=== PATIENT | female | born 1985 | race Caucasian/White ===

== ENCOUNTER 2021-07-27 08:45 | Day surgery (SDC) | payer OTHER ==
[~2021-07-27] VITALS: Ht 165.1 cm; Wt 53.3 kg
[~2021-07-27 08:45] MED LIST: BUPR300T92 PO; CIPROFLOXACIN 400 MG in IV 1 EA IV ONE; EPIP0.3I2 IM; ESTR1TAB PO; HYDR4TAB PO; LR 1,000 ML IV ONE; OMEP-221 PO; OXYB15TA14 PO; PHEN1TAB73 PO
--- OUTSIDE RECORDS SUMMARY | 2021-07-27 08:50 | CCD ---
Author Author [facility] Organization 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 Role Phone Kurtis Pinedo Unavailable PROBLEMS No Information ALLERGIES Allergen (clinical drug ingredient) Drug/Non Drug Allergy do cumented on EMR Reaction Allergy Type Onset Date Status penicillin V Penicillin SEVERE YEAST INFECTIONS Drug Allergy Active Bee Sting SWELLING Drug Allergy Active ENCOUNTERS from 1983 to 2021-07-13 Encounter Location Date Provider Diagnosis [facility] [id number] [facility] [phone] [place] [address] Jun, Kurtis Pinedo Injury of right ureter, initial encounte r S37.10XA IMMUNIZATIONS No Information SOCIAL HISTORY Tobacco Use: Social History Observation Description Date Details (start date - stop date) Current Smoker Sex Assigned At : Social History Observation Description Sex Assigned At Unknown Language: Question Answer Notes Languages spoken: Syriac Sexual Hx: Question Answer Notes Had sex in the last 12 months (vaginal, oral, or anal)? No Have you ever had an STD? No Alcohol Screening: Question Answer Notes Did you have a drink containing alcohol in the past year? No Points 0 Interpretation Negative Tobacco Use: Question Answer Notes Are you a: current smoker How many cigarettes a day do you smoke? 6-10 Are you interested in quitting? Ready to quit REASON FOR REFERRAL No Information VITAL SIGNS Weight 115.0 lbs Jun, Weight-kg 52.16 kg Jun, Height 56 in Jun, BMI 25.78 kg/m2 Jun, Heart Rate 71 /min Jun, Respiratory Rate 17 /min Jun, Temperature 97.5 degrees Fahrenheit Jun, Oximetry 98 Jun, Blood pressure systolic 138 mm Hg Jun, Blood pressure diastolic 80 mm Hg Jun, MEDICATIONS Medication SIG (Take, Route, Frequency, Duration) Notes Start Da te End Date Status Omeprazole 40 MG 1 capsule 30 minutes before morning meal Orally Once a day for 30 day(s) Active buPROPion HCl ER (XL) 300 MG 1 tablet in the morning O rally Once a day for 30 day(s) Active HYDROmorphone HCl 4 MG 1 tablet as needed Orally every 6 hrs Active Pyridium 100 MG 1 Orally q12hr prn Jun, Active Oxybutynin Chloride ER 15 MG 1 tablet Orally Once a day for 30 d ay(s) Jun, Active Estradiol 1 MG 1 tablet Orally Once a day for 30 day(s) Active PROCEDURES No Information RESULTS No Results REASON FOR VISIT right 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 MEDICAL (GENERAL) HISTORY Type Description Date Medical History DEPRESSION/ANXIETY Medical History ARTHRITIS Medical History Iatrogenic ureteral injury Surgical History STENT PLACEMENT 01/12/21 Surgical History STENT REMOVAL/REPLACEMENT 03/19/21 Surgical History STENT REMOVAL 04/28/21 Surgical History STENT PLACEMENT 05/06/21 Surgical History TOTAL HYSTERECTOMY 01/02/21 Surgical History VERICOSE VEIN 11/06/19 Surgical History COMPARTMENT SYNDROME SX 09/2007 Surgical History TUBAL LIGATION 06/2005 Surgical History 12/12/2004 Surgical History 09/11/2002 Surgical History WISDOM TEETH REMOVAL Surgical History COLONOSCOPY X3 Surgical History ENDOSCOPY Hospitalization History SX RELATED Goals Section No Information Health Concerns No Information MEDICAL EQUIPMENT No Information MENTAL STATUS No Information FUNCTIONAL STATUS No Information ASSESSMENTS Encounter Date Diagnosis Assessment Notes Treatment Notes Treatm ent Clinical Notes Jun, Injury of right ureter, initial encounter (ICD-1 0 - S37.10XA) PLAN OF TREATMENT Medication Medication Name Sig Start Date Stop Date Pyridium 100 MG 1 Orally q12hr prn Jun, Oxybutynin Chloride ER 15 MG 1 tablet Orally Once a day for 30 day(s) Jun, Treatment Notes Test Name Order Date Comprehensive Metabolic Profile (CMP) 2021-07-01 CBC - Complete Blood Count 2021-07-01 URINE CULTURE 2021-07-01 [facility] URINALYSIS 2021-07-01 [facility] Chest, 2 view (PA\Lat) 2021-07-01 Electrocardiogram (EKG) 2021-07-01 Next Appt Details Surgery to evaluate right ureter Reason: Right ureteral injury at time of hysterectomy Follow Up:Surgery to evaluate right ureterRight ureteral injury at time of hysterectomy Insurance Providers Payer Name Payer Address Payer Phone Insured Name Patient Relati onship to Insured Coverage Start Date Coverage End Date [employer] [address] [facility] [phone] PABLO GONZALEZ self
--- OUTSIDE RECORDS SUMMARY | 2021-07-27 08:50 | CCD ---
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 Role Phone Kurtis Pinedo Unavailable PROBLEMS No Information ALLERGIES Allergen (clinical drug ingredient) Drug/Non Drug Allergy do cumented on EMR Reaction Allergy Type Onset Date Status penicillin V Penicillin SEVERE YEAST INFECTIONS Drug Allergy Active Bee Sting SWELLING Drug Allergy Active ENCOUNTERS from 1983 to 2021-07-15 Encounter Location Date Provider Diagnosis [facility] [address] [phone] [place] [address] Jul, Kurtis Pinedo Pre-op testing V72.84 IMMUNIZATIONS No Information SOCIAL HISTORY Tobacco Use: Social History Observation Description Date Details (start date - stop date) Current Smoker Sex Assigned At : Social History Observation Description Sex Assigned At Unknown Language: Question Answer Notes Languages spoken: Bengali Sexual Hx: Question Answer Notes Had sex [...] REASON FOR REFERRAL No Information VITAL SIGNS No information MEDICATIONS Medication SIG (Take, Route, Frequency, Duration) [...] Information RESULTS No Results REASON FOR VISIT lab order MEDICAL (GENERAL) HISTORY Type Description Date Medical [...] Notes Treatment Notes Treatm ent Clinical Notes Jul, Pre-op testing (ICD9-CM - V72.84) PLAN OF TREATMENT Medication Medication Name Sig Start Date Stop Date Pyridium 100 MG 1 Orally q12hr prn Jun, Oxybutynin Chloride ER 15 MG 1 tablet Orally Once a day for 30 day(s) Jun, Future Test Test Name Order Date Coronavirus SARS COVID-19 Amplification (In-House Hosp ital Order) COVID [id number] Next Appt Details Provider Name:Kurtis Pinedo, 2020-12-0 3 02:45:00 PM, [id number], , [place], [address], Insurance Providers Payer Name Payer Address Payer Phone Insured Name Patient Relati onship to Insured Coverage Start Date Coverage End Date [facility] [address] [facility] [phone] PABLO GONZALEZ self
--- OUTSIDE RECORDS SUMMARY | 2021-07-27 08:51 | CCD ---
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 Role Phone Laura Pinedo MD Unavailable Unavailable Xochitl Maldonado MD Unavailable Unavailable Xochitl Solis MD Unavailable Unavailable Xochitl Solis MD Unavailable Unavailable Xochitl Solis MD Unavailable Unavailable Xochitl Solis MD Unavailable Unavailable Xochitl Solis MD Unavailable Unavailable Xochitl Solis MD Unavailable Unavailable Claudia ROGERS MD Unavailable Unavailable Claudia ROGERS MD Unavailable Unavailable Claudia ROGERS MD Unavailable Unavailable Claudia ROGERS MD Unavailable Unavailable Claudia ROGERS MD Unavailable Unavailable Claudia ROGERS MD Unavailable Unavailable Claudia ROGERS MD Unavailable Unavailable Claudia ROGERS MD Unavailable Unavailable Claudia ROGERS MD Unavailable Unavailable Claudia ROGERS MD Unavailable Unavailable Claudia ROGERS MD Unavailable Unavailable Claudia ROGERS MD Unavailable Unavailable Claudia ROGERS MD Unavailable Unavailable Claudia ROGERS MD Unavailable Unavailable Claudia ROGERS MD Unavailable Unavailable Claudia ROGERS MD Unavailable Unavailable Claudia ROGERS MD Unavailable Unavailable Claudia ROGERS MD Unavailable Unavailable Claudia ROGERS MD Unavailable Unavailable Claudia ROGERS MD Unavailable Unavailable Claudia ROGERS MD Unavailable Unavailable Claudia ROGERS MD Unavailable Unavailable DEMI, J ROSI CARDENAS Unavailable Unavailable DEMI, J ROSI CARDENAS Unavailable Unavailable DEMI, J ROSI CARDENAS Unavailable Unavailable DEMI, J ROSI CARDENAS Unavailable Unavailable DEMI, J ROSI CARDENAS Unavailable Unavailable DEMI, J ROSI CARDENAS Unavailable Unavailable DEMI, J ROSI CARDENAS Unavailable Unavailable DEMI, J ROSI CARDENAS Unavailable Unavailable DEMI, J ROIS CARDENAS Unavailable Unavailable DEMI, J ROSI CARDENAS Unavailable Unavailable DEMI, J ROSI CARDENAS Unavailable Unavailable DEMI, J ROSI CARDENAS Unavailable Unavailable DEMI, J ROSI CARDENAS Unavailable Unavailable DEMI, J ROSI CARDENAS Unavailable Unavailable DEMI, J ROSI CARDENAS Unavailable Unavailable DEMI, J ROSI CARDENAS Unavailable Unavailable DEMI, J ROSI CARDENAS Unavailable Unavailable DEMI, J ROSI CARDENAS Unavailable Unavailable DEMI, J ROSI CARDENAS Unavailable Unavailable DEMI, J ROSI CARDENAS Unavailable Unavailable DEMI, J ROSI CARDENAS Unavailable Unavailable DEMI, J ROSI CARDENAS Unavailable Unavailable DEMI, J ROSI CARDENAS Unavailable Unavailable DEMI, J ROSI CARDENAS Unavailable Unavailable DEMI, J ROSI CARDENAS Unavailable Unavailable DEMI, J ROSI CARDENAS Unavailable Unavailable DEMI, J ROSI CARDENAS Unavailable Unavailable DEMI, J ROSI CARDENAS Unavailable Unavailable DEMI, J ROSI CARDENAS Unavailable Unavailable DEMI, J ROSI CARDENAS Unavailable Unavailable DEMI, J ROSI CARDENAS Unavailable Unavailable DEMI, J ROSI CARDENAS Unavailable Unavailable DEMI, J ROSI CARDENAS Unavailable Unavailable DEMI, J ROSI CARDENAS Unavailable Unavailable DEMI, J ROSI CARDENAS Unavailable Unavailable DEMI, J ROSI CARDENAS Unavailable Unavailable DEMI, J ROSI CARDENAS Unavailable Unavailable DEMI, J ROSI CARDENAS Unavailable Unavailable DEMI, J ROSI CARDENAS Unavailable Unavailable DEMI, J ROSI CARDENAS Unavailable Unavailable DEMI, J ROSI CARDENAS Unavailable Unavailable DEMI, J ROSI CARDENAS Unavailable Unavailable DEMI, J ROSI CARDENAS Unavailable Unavailable DEMI, J ROSI CARDENAS Unavailable Unavailable DEMI, J ROSI CARDENAS Unavailable Unavailable DEMI, J ROSI CARDENAS Unavailable Unavailable DEMI, J ROSI CARDENAS Unavailable Unavailable DEMI, J ROSI CARDENAS Unavailable Unavailable DEMI, J ROSI CARDENAS Unavailable Unavailable DEMI, J ROSI CARDENAS Unavailable Unavailable DEMI, J ROSI CARDENAS Unavailable Unavailable DEMI, J ROSI CARDENAS Unavailable Unavailable DEMI, J ROSI CARDENAS Unavailable Unavailable DEMI, J ROSI CARDENAS Unavailable Unavailable DEMI, J ROSI CARDENAS Unavailable Unavailable DEMI, Claudia ARANDA MD Unavailable Unavailable Kelle-Mckinney, K Kristi CARDENAS Unavailable Unavailable Kelle-Mckinney, K Kristi CARDENAS Unavailable Unavailable Kelle-Mckinney, K Kristi CARDENAS Unavailable Unavailable Kelle-Mckinney, K Kristi CARDENAS Unavailable Unavailable NazMckinney, K Kristi CARDENAS Unavailable Unavailable Xochitl Maldonado MD Unavailable Unavailable Xochitl Maldonado MD Unavailable Unavailable Xochitl Maldonado MD Unavailable Unavailable Xochitl Maldonado MD Unavailable Unavailable Xochitl Maldonado MD Unavailable Unavailable Xochitl Maldonado MD Unavailable Unavailable Xochitl Maldonado MD Unavailable Unavailable Xochitl Maldonado MD Unavailable Unavailable Xochitl Maldonado MD Unavailable Unavailable Xochitl Maldonado MD Unavailable Unavailable Xochitl Maldonado MD Unavailable Unavailable Xochitl Maldonado MD Unavailable Unavailable Xochitl Maldonado MD Unavailable Unavailable Xochitl Maldonado MD Unavailable Unavailable Xochitl Maldonado MD Unavailable Unavailable Xochitl Maldonado MD Unavailable Unavailable Xochitl Maldonado MD Unavailable Unavailable Juan Jose, Leo DO Unavailable Unavailable Juan Jose, Leo DO Unavailable Unavailable Juan Jose, Leo DO Unavailable Unavailable [place], Leo DO Unavailable Unavailable IRMA, PRYJSALAS POWELL MD Unavailable Unavailable IRMA, PRYJSALAS POWELL MD Unavailable Unavailable IRMA, PRYJMA SHERRY CARDENAS Unavailable Unavailable IRMA, PRYJMA SHERRY CARDENAS Unavailable Unavailable IRMA, PRYJMA SHERRY MD Unavailable Unavailable IRMA, PRYJMA SHERRY CARDENAS Unavailable Unavailable IRMA, PRYJMA SHERRY MD Unavailable Unavailable IRMA, PRYJMA SHERRY MD Unavailable Unavailable IRMA, PRYJMA SHERRY MD Unavailable Unavailable IRMA, PRYJMA SHERRY MD Unavailable Unavailable IRMA, PRYJMA SHERRY MD Unavailable Unavailable IRMA, PRYJMA SHERRY MD Unavailable Unavailable IRMA, PRYJMA SHERRY MD Unavailable Unavailable IRMA, PRYJMA SHERRY MD Unavailable Unavailable IRMA, PRYJMA SHERRY MD Unavailable Unavailable IRMA, PRYJMA SHERRY MD Unavailable Unavailable IRMA, PRYJMA SHERRY MD Unavailable Unavailable IRMA, PRYJMA SHERRY MD Unavailable Unavailable IRMA, PRYJMA SHERRY MD Unavailable Unavailable IRMA, PRYJMA SHERRY MD Unavailable Unavailable IRMA, PRYJMA SHERRY MD Unavailable Unavailable IRMA, PRYJMA SHERRY MD Unavailable Unavailable IRMA, PRYJMA SHERRY MD Unavailable Unavailable IRMA, PRYJMA SHERRY MD Unavailable Unavailable ALEX SOLIS MD Unavailable Unavailable ALEX SOLIS MD Unavailable Unavailable ALEX SOLIS MD Unavailable Unavailable ALEX SOLIS MD Unavailable Unavailable ALEX SOLIS MD Unavailable Unavailable ALEX SOLIS MD Unavailable Unavailable Robetro Carlos HOOVER MD Unavailable Unavailable Roberto Carols HOOVER MD Unavailable Unavailable Roberto Carlos HOOVER MD Unavailable Unavailable Roberto Carlos HOOVER MD Unavailable Unavailable Roberto Carlos HOOVER MD Unavailable Unavailable KIKO, H HAILEE CARDENAS Unavailable Unavailable Maricruz Barraza MD Unavailable Unavailable Maricruz Barraza MD Unavailable Unavailable Aviva Hernandez MD Unavailable Unavailable Turecki, Kurtis Unavailable Turecki, Kurtis Unavailable Turecki, Kurtis Unavailable Turecki, Kurtis Unavailable Turecki, Kurtis Unavailable Turecki, Kurtis Unavailable Turecki, Kurtis Unavailable Turecki, Kurtis Unavailable Bela Gloria MD Unavailable Unavailable Bela Gloria MD Unavailable Unavailable BROUGHAL, C GERRI PA Unavailable Unavailable BROUGHAL, C GERRI PA Unavailable Unavailable BROUGHAL, C GERRI PA Unavailable Unavailable BROUGHAL, C GERRI PA Unavailable Unavailable BROUGHAL, C GERRI PA Unavailable Unavailable BROUGHAL, C GERRI PA Unavailable Unavailable Walker, C Chuyita RPA-C Unavailable Unavailable Walker, C Chuyita RPA-C Unavailable Unavailable Walker, C Chuyita RPA-C Unavailable Unavailable Walker, C Chuyita RPA-C Unavailable Unavailable Walker, C Chuyita RPA-C Unavailable Unavailable Walker, C Chuyita RPA-C Unavailable Unavailable Walker, C Chuyita RPA-C Unavailable Unavailable Walker, C Chuyita RPA-C Unavailable Unavailable Walker, C Chuyita RPA-C Unavailable Unavailable Walker, C Chuyita RPA-C Unavailable Unavailable Walker, C Chuyita RPA-C Unavailable Unavailable Walker, C Chuyita RPA-C Unavailable Unavailable Walker, C Chuyita RPA-C Unavailable Unavailable Walker, C Chuyita RPA-C Unavailable Unavailable Walker, C Chuyita RPA-C Unavailable Unavailable Walker, C Chuyita RPA-C Unavailable Unavailable Walker, C Chuyita RPA-C Unavailable Unavailable Walker, C Chuyita RPA-C Unavailable Unavailable Walker, C Chuyita RPA-C Unavailable Unavailable Walker, C Chuyita RPA-C Unavailable Unavailable Walker, C Chuyita RPA-C Unavailable Unavailable Walker, C Chuyita RPA-C Unavailable Unavailable Walker, C Chuyita RPA-C Unavailable Unavailable Walker, C Chuyita RPA-C Unavailable Unavailable Walker, C Chuyita RPA-C Unavailable Unavailable Walker, C Chuyita RPA-C Unavailable Unavailable Walker, C Chuyita RPA-C Unavailable Unavailable Walker, C Chuyita RPA-C Unavailable Unavailable Miglietta, C Vipul TSE Unavailable Unavailable Migafiaetta, C Vipul PA Unavailable Unavailable Miglietta, C Vipul PA Unavailable Unavailable Re-disclosure Warning The records that you are about to access may contain information from federally-assisted alcohol or drug abuse programs. If such information is present, then the following federally mandated warning applies: This information has been disclosed to you from records protected by federal confidentiality rules (42 CFR part 2). The federal rules prohibit you from making any further disclosure of this information unless further disclosure is expressly permitted by the written consent of the person to whom it pertains or as otherwise permitted by 42 CFR part 2. A general authorization for the release of medical or other information is NOT sufficient for this purpose. The Federal rules restrict any use of the information to criminally investigate or prosecute any alcohol or drug abuse patient.The records that you are about to access may contain highly sensitive health information, the redisclosure of which is protected by Article 27-F of the [facility] Public Health law. If you continue you may have access to information: Regarding HIV / AIDS; Provided by facilities licensed or operated by the [facility] Office of Mental Health; or Provided by the [facility] Office for People With Developmental Disabilities. If such information is present, then the following [facility] mandated warning applies: This information has been disclosed to you from confidential records which are protected by state law. State law prohibits you from making any further disclosure of this information without the specific written consent of the person to whom it pertains, or as otherwise permitted by law. Any unauthorized further disclosure in violation of state law may result in a fine or long-term sentence or both. A general authorization for the release of medical or other information is NOT sufficient authorization for further disc losure. Allergies and Adverse Reactions Type Description Substance Reaction Status Data Source(s ) Drug allergy Drug allergy bee venom protein (honey bee) Unknown React ion [facility] Drug allergy Drug allergy Penicillins Itching [facility] Encounters Encounter Providers Location Date Indications Data Source(s ) Outpatient Attender: GERRI TSE CPSCAORT-LABCOVWAR 1 09/21/2020 10:04:00 AM EST - 07/22/2021 10:05:00 AM EST V72.84 [facility] V72.84 Patient discharged. Outpatient Attender: Kurtis Pinedo MDAttender: Kurtis Escamilla i CPSCAORT-LABPD 07/16/2021 01:17:00 PM EDT - 07/16/2021 01:18:00 PM EDT S37.10XA [facility] S37.10XA Patient discharged. Unknown [id number] [facility], [facility] [id number] 07/14/2021 12:00:00 AM EDT eCW1 (Formerly [facility]) Outpatient [address] [facility] [place] [id number] 07/01/2021 12:00:00 AM EDT eCW1 (Formerly [facility]) Inpatient Attender: Kristi Hernandez MDAttender: Kristi Hernandez MDAttender: Miko Solis MDAdmitter: Kristi Hernandez MDConsultant: Werner Maldonado MDConsultant: Werner Maldonado MD CPSCAORT-OBSERV 05/06/2021 05:58: 00 PM EDT - 05/07/2021 12:35:00 PM EDT RIGHT URETERAL LIGATION [facility] RIGHT URETERAL LIGATION Patient discharged. Emergency Att[facility]: [facility]is [facility] 12:11:00 PM EDT - 05/05/2021 04:55:00 PM EDT URINARY INCONTINENCE, FEVER [facility] URINARY INCONTINENCE, FEVER Patient discharged. Outpatient Attender: HAILEE HOOVER MD CPSCAORT-LABPD 02/2021 11:22:00 AM EDT - 04/17/2021 11:23:00 AM EDT N39.42, R30.0 [facility] al N39.42, R30.0 Patient discharged. Emergency Attender: Shirley Gloria MDAttender: Gerri shahid MD CPSCAORT-ED 03/23/2021 10:59:00 AM EDT - 03/23/2021 05:26:00 PM EDT POST SURGICAL PAIN [facility] POST SURGICAL PAIN Patient discharged. Outpatient Attender: ROSI ROGERS MD CPSCAORT-LABPNP 02/12 01:02:00 PM EDT - 03/11/2021 01:03:00 PM EDT N23 RENAL COLIC [facility] al N23 RENAL COLIC Patient discharged. Emergency Attender: Vipul Johnson PAAttender: Leo Garcia es DO CPSCAORT-ED 01/31/2021 10:04:00 AM EDT - 01/31/2021 11:03:00 AM EDT REQUESTING NICE PLACED [facility] REQUESTING NICE PLACED Patient discharged. Outpatient Attender: GERRI TSE CPSCAORT-LABCOVWAR 0 12/28/2020 09:02:00 AM EDT - 12/28/2020 09:03:00 AM EDT PREOP [facility] al PREOP Patient discharged. Outpatient Attender: SHERRY SOLIS MD CPSCAORT-SDCLOC 020 08:05:00 AM EST - 08/18/2020 09:14:00 AM EST Hemorrhage of anus and rectum [facility] Hemorrhage of anus and rectum Patient discharged. Outpatient Attender: SHERRY SOLIS MDReferrer: GERRI TSE CPSCAORT-LABCOVLAW 08/13/2020 08:12:00 AM EST - 08/13/2020 08:13:00 AM ES T COVID-19 SCREENING [facility] COVID-19 SCREENING Patient discharged. Outpatient Attender: SHERRY SOLIS MD CPSCAORT-CPSCNGSR 08/12 01:37:00 PM EST - 08/12/2020 01:38:00 PM EST K62.5 [facility] K62.5 Patient discharged. Outpatient Attender: ROSI ROGERS MD CPSALYSHA-IMACN 07/14 06:34:00 AM EST - 08/04/2020 06:35:00 AM EST LUMBAR RADICULOPATHY [facility] LUMBAR RADICULOPATHY Patient discharged. Outpatient [facility] 08/01/2020 10:37:00 AM EST - 08/01/2020 10:38:00 AM EST [facility] pital Patient discharged. Outpatient Attender: ROSI ROGERS MD CPSALYSHA-IMAPD 07/13 08:34:00 AM EST - 07/28/2020 08:35:00 AM EST LOW BACK PAIN [facility] LOW BACK PAIN Patient discharged. Outpatient Attender: ROSI KNOWLES-LABPNP 07/13 03:14:00 PM EST - 07/23/2020 03:15:00 PM EST K62.5; M54.16 [facility] K62.5; M54.16 Patient discharged. Outpatient Attender: SHERRY SOLIS MD CPSBRADLEYORT-SDCIMA 020 10:23:00 AM EST - 11/06/2019 11:55:00 AM EST RFA RIGHT GSV AND AASV [facility] RFA RIGHT GSV AND AASV Patient discharged. Medications Medication Brand Name Start Date Product Form Dose Route Admi nistrative Instructions Pharmacy Instructions Status Indications Reaction Description Data Source(s) 4 mg 07/20/2021 12:00:00 AM EST tablet 24 TAKE ONE TABLET BY MOUTH EVERY 4 HOURS NEEDED MAX=6TABS/DAY TAKE ONE TABLET BY MOUTH EVERY 4 HOURS A S NEEDED MAX=6TABS/DAY SOLD: 07/20/2021 [facility] 4 mg 07/13/2021 12:00:00 AM EDT tablet 24 TAKE ONE TABLET BY MOUTH EVERY 4 HOURS NEEDED MAX=6TABS/DAY TAKE ONE TABLET BY MOUTH EVERY 4 HOURS A S NEEDED MAX=6TABS/DAY SOLD: 07/13/2021 [facility] 4 mg 07/07/2021 12:00:00 AM EDT tablet 24 TAKE ONE TABLET BY MOUTH EVERY 4 HOURS NEEDED MAX=6TABS/DAY TAKE ONE TABLET BY MOUTH EVERY 4 HOURS A S NEEDED MAX=6TABS/DAY SOLD: 07/07/2021 [facility] 15 mg 07/02/2021 12:00:00 AM EDT tablet extended release 24hr 30 TAKE ONE TABLET BY MOUTH EVERY DAY TAKE ONE TABLET BY MOUTH EVERY DAY SOLD: 07/03/2021 [facility] 24 HR Oxybutynin chloride 15 MG Extended Release Oral Tablet Oxybutynin Chloride ER 15 MG Oxybutynin Chloride ER 15 MG 07/01/2021 12:00:00 AM EDT 1.0 {tablet} active Oxybutynin Chloride ER 15 MG eCW1 ([facility]) Phenazopyridine hydrochloride 100 MG Oral Tablet [Pyri dium] Pyridium 100 MG Pyridium 100 MG 07/01/2021 12:00:00 AM EDT active Pyridium 100 MG eCW1 ([facility]) Phenazopyridine hydrochloride 100 MG Oral Tablet [Pyri dium] Pyridium 100 MG Pyridium 100 MG 07/01/2021 12:00:00 AM EDT active Pyridium 100 MG eCW1 ([facility]) 24 HR Oxybutynin chloride 15 MG Extended Release Oral Tablet Oxybutynin Chloride ER 15 MG Oxybutynin Chloride ER 15 MG 07/01/2021 12:00:00 AM EDT 1.0 {tablet} active Oxybutynin Chloride ER 1 5 MG eCW1 ([facility]) 100 mg 07/01/2021 12:00:00 AM EDT tablet 30 TAKE ONE TABLET BY MOUTH EVERY 12 HOURS NEEDED TAKE ONE TABLET BY MOUTH EVERY 12 HOURS NEEDED SOLD : 07/03/2021 [facility] 4 mg 06/29/2021 12:00:00 AM EDT tablet 24 TAKE ONE TABLET BY MOUTH EVERY 4 HOURS NEEDED MAX=6TABS/DAY TAKE ONE TABLET BY MOUTH EVERY 4 HOURS A S NEEDED MAX=6TABS/DAY SOLD: 06/30/2021 [facility] 4 mg 06/22/2021 12:00:00 AM EDT tablet 24 TAKE ONE TABLET BY MOUTH EVERY 4 HOURS NEEDED MAX=6TABS/DAY TAKE ONE TABLET BY MOUTH EVERY 4 HOURS A S NEEDED MAX=6TABS/DAY SOLD: 06/22/2021 [facility] 4 mg 06/16/2021 12:00:00 AM EDT tablet 24 TAKE ONE TABLET BY MOUTH EVERY 4 HOURS NEEDED MAX=6TABS/DAY TAKE ONE TABLET BY MOUTH EVERY 4 HOURS A S NEEDED MAX=6TABS/DAY SOLD: 06/16/2021 [facility] 4 mg 06/08/2021 12:00:00 AM EDT tablet 24 TAKE ONE TABLET BY MOUTH EVERY 4 HOURS NEEDED MAX=6TABS/DAY TAKE ONE TABLET BY MOUTH EVERY 4 HOURS A S NEEDED MAX=6TABS/DAY SOLD: 06/08/2021 [facility] 4 mg 06/01/2021 12:00:00 AM EDT tablet 24 TAKE ONE TABLET BY MOUTH EVERY 4 HOURS NEEDED MAX=6TABS/DAY TAKE ONE TABLET BY MOUTH EVERY 4 HOURS A S NEEDED MAX=6TABS/DAY SOLD: 06/01/2021 [facility] 10 mg 05/29/2021 12:00:00 AM EDT tablet extended release 24hr 30 TAKE ONE TABLET BY MOUTH EVERY DAY TAKE ONE TABLET BY MOUTH EVERY DAY SOLD: 06/01/2021 [facility] 4 mg 05/25/2021 12:00:00 AM EDT tablet 24 TAKE ONE TABLET BY MOUTH EVERY 4 HOURS NEEDED MAX=6TABS/DAY TAKE ONE TABLET BY MOUTH EVERY 4 HOURS A S NEEDED MAX=6TABS/DAY SOLD: 05/25/2021 [facility] 4 mg 05/15/2021 12:00:00 AM EDT tablet 24 TAKE ONE TABLET BY MOUTH EVERY 4 HOURS NEEDED MAX=6TABS/DAY TAKE ONE TABLET BY MOUTH EVERY 4 HOURS A S NEEDED MAX=6TABS/DAY SOLD: 05/15/2021 [facility] Acetaminophen 325 MG / Hydrocodone Bitartrate 5 MG Ora l Tablet 5-325 mg HYDROCODONE/ACETAMINOPHEN 05/11/2021 12:00:00 AM EDT tablet 42 TAKE ONE TO TWO TABLETS BY MOUTH EVERY 6 HOURS NEEDED MAX=6TABS/DAY TAKE ONE TO TWO TABLETS BY MOUTH EVERY 6 HOURS NEEDED MAX=6TABS/DAY SOLD: 05/11/2021 [facility] 10 mg 05/11/2021 12:00:00 AM EDT tablet extended release 24hr 10 TAKE ONE TABLET BY MOUTH EVERY DAY FOR 10 DAYS TAKE ONE TABLET BY MOUTH EVERY DAY FOR 1 0 DAYS SOLD: 05/11/2021 [facility] Ciprofloxacin 500 MG Oral Tablet CIPROFLOXACIN HCL 05/07/2021 12 :00:00 AM EDT tablet 19 TAKE ONE TABLET BY MOUTH TWICE A DAY TAKE ONE TABLET BY MOUTH TWICE A DAY SOLD: 05/08/2021 [facility] 100 mg 05/05/2021 12:00:00 AM EDT capsule 20 TAKE ONE CAPSULE BY MOUTH TWICE A DAY FOR 10 DAYS TAKE ONE CAPSULE BY MOUTH TWICE A DAY FOR 10 DAYS SOLD : 05/08/2021 [facility] Acetaminophen 325 MG / Hydrocodone Bitartrate 5 MG Ora l Tablet 5-325 mg HYDROCODONE/ACETAMINOPHEN 05/04/2021 12:00:00 AM EDT tablet 42 TAKE ONE TO TWO TABLETS BY MOUTH EVERY 6 HOURS NEEDED MAX=6TABS/DAY TAKE ONE TO TWO TABLETS BY MOUTH EVERY 6 HOURS NEEDED MAX=6TABS/DAY SOLD: 05/04/2021 [facility] Ciprofloxacin 500 MG Oral Tablet CIPROFLOXACIN HCL 04/28/2021 12 :00:00 AM EDT tablet 10 TAKE ONE TABLET BY MOUTH TWICE A DAY FOR 5 DAYS TAKE ONE TABLET BY MOUTH TWICE A DAY FOR 5 DAYS SOLD: 04/28/2021 [facility] Acetaminophen 325 MG / Hydrocodone Bitartrate 5 MG Ora l Tablet 5-325 mg HYDROCODONE/ACETAMINOPHEN 04/27/2021 12:00:00 AM EDT tablet 42 TAKE ONE TO TWO TABLETS BY MOUTH EVERY 6 HOURS NEEDED MAX=6TABS/DAY TAKE ONE TO TWO TABLETS BY MOUTH EVERY 6 HOURS NEEDED MAX=6TABS/DAY SOLD: 04/27/2021 [facility] Acetaminophen 325 MG / Hydrocodone Bitartrate 5 MG Ora l Tablet 5-325 mg HYDROCODONE/ACETAMINOPHEN 04/21/2021 12:00:00 AM EDT tablet 42 TAKE ONE TO TWO TABLETS BY MOUTH EVERY 6 HOURS NEEDED MAX=6TABS/DAY TAKE ONE TO TWO TABLETS BY MOUTH EVERY 6 HOURS NEEDED MAX=6TABS/DAY SOLD: 04/21/2021 [facility] 40 mg 04/20/2021 12:00:00 AM EDT capsule,delayed release (DR/EC) 90 TAKE ONE CAPSULE BY MOUTH EVERY DAY TAKE ONE CAPSULE BY MOUTH EVERY DAY SOLD: 04/21/2021 [facility] 24 HR Bupropion Hydrochloride 300 MG Extended Release Oral T ablet BUPROPION HCL 04/20/2021 12:00:00 AM EDT tablet extended release 24 hr 90 TAKE ONE TABLET BY MOUTH EVERY DAY TAKE ONE TABLET BY MOUTH EVERY DAY SOLD: 04/21/2021 [facility] NITROFURANTOIN, MACROCRYSTALS 25 MG / Ni trofurantoin, Monohydrate 75 MG Oral Capsule 100 mg NITROFURANTOIN MONOHYD/M-CRYST 04/20/2021 12:00:00 AM EDT ca psule 20 TAKE ONE CAPSULE BY MOUTH TWICE A DAY FOR 10 DAYS TAKE ONE CAPSULE BY MOUTH TWICE A DAY FOR 10 DAYS SOLD: 04/20/2021 [facility] Ciprofloxacin 500 MG Oral Tablet CIPROFLOXACIN HCL 04/17/2021 12 :00:00 AM EDT tablet 10 TAKE ONE TABLET BY MOUTH EVERY 1 2 HOURS FOR 5 DAYS TAKE ONE TABLET BY MOUTH EVERY 12 HOURS FOR 5 DAYS SOLD: 04/17/2021 [facility] Acetaminophen 325 MG / Hydrocodone Bitartrate 5 MG Ora l Tablet 5-325 mg HYDROCODONE/ACETAMINOPHEN 04/14/2021 12:00:00 AM EDT tablet 42 TAKE ONE TO TWO TABLETS BY MOUTH EVERY 6 HOURS NEEDED MAX=6TABS/DAY TAKE ONE TO TWO TABLETS BY MOUTH EVERY 6 HOURS NEEDED MAX=6TABS/DAY SOLD: 04/14/2021 [facility] Acetaminophen 325 MG / Hydrocodone Bitartrate 5 MG Ora l Tablet 5-325 mg HYDROCODONE/ACETAMINOPHEN 04/07/2021 12:00:00 AM EDT tablet 42 TAKE ONE TO TWO TABLETS BY MOUTH EVERY 6 HOURS NEEDED MAX=6TABS/DAY TAKE ONE TO TWO TABLETS BY MOUTH EVERY 6 HOURS NEEDED MAX=6TABS/DAY SOLD: 04/07/2021 [facility] Acetaminophen 325 MG / Hydrocodone Bitartrate 5 MG Ora l Tablet 5-325 mg HYDROCODONE/ACETAMINOPHEN 03/30/2021 12:00:00 AM EDT tablet 42 TAKE ONE TO TWO TABLETS BY MOUTH EVERY 6 HOURS NEEDED MAX=6TABS/DAY TAKE ONE TO TWO TABLETS BY MOUTH EVERY 6 HOURS NEEDED MAX=6TABS/DAY SOLD: 03/31/2021 [facility] 100 mg 03/23/2021 12:00:00 AM EDT tablet 9 TAKE ONE TABLET BY MOUTH THREE TIMES A DAY AFTER MEALS FOR 3 DAYS TAKE ONE TABLET BY MOUTH THREE TIMES A D AY AFTER MEALS FOR 3 DAYS SOLD: 03/24/2021 [facility] Acetaminophen 325 MG / Hydrocodone Bitartrate 5 MG Ora l Tablet 5-325 mg HYDROCODONE/ACETAMINOPHEN 03/23/2021 12:00:00 AM EDT tablet 42 TAKE ONE TO TWO TABLETS BY MOUTH EVERY 6 HOURS NEEDED MAX=6TABS/DAY TAKE ONE TO TWO TABLETS BY MOUTH EVERY 6 HOURS NEEDED MAX=6TABS/DAY SOLD: 03/23/2021 [facility] NITROFURANTOIN, MACROCRYSTALS 25 MG / Ni trofurantoin, Monohydrate 75 MG Oral Capsule 100 mg NITROFURANTOIN MONOHYD/M-CRYST 03/17/2021 12:00:00 AM EDT ca psule 20 TAKE ONE CAPSULE BY MOUTH TWICE A DAY WITH FOOD TAKE ONE CAPSULE BY MOUTH TWICE A DAY WITH FOOD SOLD: 03/17/2021 [facility] Acetaminophen 325 MG / Hydrocodone Bitartrate 5 MG Ora l Tablet 5-325 mg HYDROCODONE/ACETAMINOPHEN 03/15/2021 12:00:00 AM EDT tablet 42 TAKE ONE TO TWO TABLETS BY MOUTH EVERY 6 HOURS NEEDED MAX=6TABS/DAY TAKE ONE TO TWO TABLETS BY MOUTH EVERY 6 HOURS NEEDED MAX=6TABS/DAY SOLD: 03/16/2021 [facility] Acetaminophen 325 MG / Hydrocodone Bitartrate 5 MG Ora l Tablet 5-325 mg HYDROCODONE/ACETAMINOPHEN 03/09/2021 12:00:00 AM EDT tablet 42 TAKE ONE TO TWO TABLETS BY MOUTH EVERY 6 HOURS NEEDED MAX=6TABS/DAY TAKE ONE TO TWO TABLETS BY MOUTH EVERY 6 HOURS NEEDED MAX=6TABS/DAY SOLD: 03/09/2021 [facility] Acetaminophen 325 MG / Hydrocodone Bitartrate 5 MG Ora l Tablet 5-325 mg HYDROCODONE/ACETAMINOPHEN 03/02/2021 12:00:00 AM EDT tablet 42 TAKE 1-2 TABLETS BY MOUTH EVERY 6 HOURS NEEDED MAX=6TABS/DAY TAKE 1-2 TABLETS BY MOUTH EVERY 6 HOURS NEEDED MAX=6TABS/DAY SOLD: 03/02/2021 [facility] Acetaminophen 325 MG / Hydrocodone Bitartrate 5 MG Ora l Tablet 5-325 mg HYDROCODONE/ACETAMINOPHEN 02/24/2021 12:00:00 AM EDT tablet 42 TAKE ONE TO TWO TABLETS BY MOUTH EVERY 6 HOURS NEEDED MAX=6TABS/DAY TAKE ONE TO TWO TABLETS BY MOUTH EVERY 6 HOURS NEEDED MAX=6TABS/DAY SOLD: 02/24/2021 [facility] Acetaminophen 325 MG / Hydrocodone Bitartrate 5 MG Ora l Tablet 5-325 mg HYDROCODONE/ACETAMINOPHEN 02/17/2021 12:00:00 AM EDT tablet 42 TAKE ONE TO TWO TABLETS BY MOUTH EVERY 6 HOURS NEEDED MAX=6TABS/DAY TAKE ONE TO TWO TABLETS BY MOUTH EVERY 6 HOURS NEEDED MAX=6TABS/DAY SOLD: 02/17/2021 [facility] 500 mg 02/17/2021 12:00:00 AM EDT tablet 10 TAKE ONE TABLET BY MOUTH EVERY 12 HOURS FOR 5 DAYS TAKE ONE TABLET BY MOUTH EVERY 12 HOURS FOR 5 DAYS ESTER [facility] 10 mg 02/14/2021 12:00:00 AM EDT tablet extended release 24hr 60 TAKE ONE TABLET BY MOUTH DAILY TAKE ONE TABLET BY MOUTH DAILY SOLD: 02/17/2021 [facility] Acetaminophen 325 MG / Hydrocodone Bitartrate 5 MG Ora l Tablet 5-325 mg HYDROCODONE/ACETAMINOPHEN 02/10/2021 12:00:00 AM EDT tablet 42 TAKE ONE TO TWO TABLETS BY MOUTH EVERY 6 HOURS NEEDED MAX=6TABS/DAY TAKE ONE TO TWO TABLETS BY MOUTH EVERY 6 HOURS NEEDED MAX=6TABS/DAY SOLD: 02/10/2021 [facility] 1 mg 02/06/2021 12:00:00 AM EDT tablet 10 TAKE ONE TABLET BY MOUTH TWICE A DAY FOR 5 DAYS TAKE ONE TABLET BY MOUTH TWICE A DAY FOR 5 DAYS SOLD: 2020 [facility] 2 % 02/06/2021 12:00:00 AM EDT cream 40 INSERT ONE APPLICATORFUL VAGINALLY EVERY DAY FOR 5 DAYS INSERT ONE APPLICATORFUL VAGINALLY EVERY DAY FOR 5 DAY S SOLD: 02/10/2021 [facility] Acetaminophen 325 MG / Hydrocodone Bitartrate 5 MG Ora l Tablet 5-325 mg HYDROCODONE/ACETAMINOPHEN 2021 12:00:00 AM EDT tablet 42 TAKE ONE TO TWO TABLETS BY MOUTH EVERY 6 HOURS MAX=6TABS/DAY TAKE ONE TO TWO TABLETS BY MOUTH EVERY 6 HOURS MAX=6TABS/DAY SOLD: 2021 [facility] 5 mg 01/31/2021 12:00:00 AM EDT tablet 8 TAKE ONE TABLET BY MOUTH EVERY 6 HOURS MAX=4TABS/DAY TAKE ONE TABLET BY MOUTH EVERY 6 HOURS MAX=4TABS/DAY S OLD: 01/31/2021 [facility] 168 HR Estradiol 0.75568 MG/HR Transdermal System 0.1 mg/24 hr ESTRADIOL 01/26/2021 12:00:00 AM EDT patch weekly 4 APPLY 1 PATCH TO THE SKIN ONCE WEEKLY APPLY 1 PATCH TO THE SKIN ONCE WEEKLY SOLD: 01/26/2021 [facility] Acetaminophen 325 MG / Hydrocodone Bitartrate 5 MG Ora l Tablet 5-325 mg HYDROCODONE/ACETAMINOPHEN 01/26/2021 12:00:00 AM EDT tablet 42 TAKE ONE TO TWO TABLETS BY MOUTH EVERY 6 HOURS NEEDED MAX=6TABS/DAY TAKE ONE TO TWO TABLETS BY MOUTH EVERY 6 HOURS NEEDED MAX=6TABS/DAY SOLD: 01/26/2021 [facility] 40 mg 01/19/2021 12:00:00 AM EDT capsule,delayed release (DR/EC) 90 TAKE ONE CAPSULE BY MOUTH EVERY DAY TAKE ONE CAPSULE BY MOUTH EVERY DAY SOLD: 01/19/2021 [facility] Acetaminophen 325 MG / Hydrocodone Bitartrate 5 MG Ora l Tablet 5-325 mg HYDROCODONE/ACETAMINOPHEN 01/19/2021 12:00:00 AM EDT tablet 42 TAKE ONE TO TWO TABLETS BY MOUTH EVERY 6 HOURS NEEDED MAX=6TABS/DAY TAKE ONE TO TWO TABLETS BY MOUTH EVERY 6 HOURS NEEDED MAX=6TABS/DAY SOLD: 01/19/2021 [facility] 24 HR Bupropion Hydrochloride 300 MG Extended Release Oral T ablet BUPROPION HCL 01/19/2021 12:00:00 AM EDT tablet extended release 24 hr 90 TAKE ONE TABLET BY MOUTH EVERY DAY TAKE ONE TABLET BY MOUTH EVERY DAY SOLD: 01/19/2021 [facility] 1 mg 01/17/2021 12:00:00 AM EDT tablet 90 TAKE ONE TABLET BY MOUTH EVERY DAY TAKE ONE TABLET BY MOUTH EVERY DAY SOLD: 05/04/2021 [facility] 1 mg 01/17/2021 12:00:00 AM EDT tablet 90 TAKE ONE TABLET BY MOUTH EVERY DAY TAKE ONE TABLET BY MOUTH EVERY DAY SOLD: 01/19/2021 [facility] Acetaminophen 325 MG / Hydrocodone Bitartrate 5 MG Ora l Tablet 5-325 mg HYDROCODONE/ACETAMINOPHEN 01/11/2021 12:00:00 AM EDT tablet 42 TAKE 1-2 TABLETS BY MOUTH EVERY 6 HOURS NEEDED MAXIMUM DAILY DOSE = 6 TABLETS TAKE 1-2 TABLETS BY MOUTH EVERY 6 HOURS NEEDED MAXIMUM DAILY DOSE = 6 TABLETS SOLD: 01/13/2021 [facility] Acetaminophen 325 MG / Hydrocodone Bitartrate 5 MG Ora l Tablet 5-325 mg HYDROCODONE/ACETAMINOPHEN 01/05/2021 12:00:00 AM EDT tablet 42 TAKE ONE TO TWO TABLETS BY MOUTH EVERY 6 HOURS NEEDED MAX=6TABS/DAY TAKE ONE TO TWO TABLETS BY MOUTH EVERY 6 HOURS NEEDED MAX=6TABS/DAY SOLD: 01/05/2021 [facility] Acetaminophen 325 MG / Hydrocodone Bitartrate 5 MG Ora l Tablet 5-325 mg HYDROCODONE/ACETAMINOPHEN 12/29/2020 12:00:00 AM EDT tablet 42 TAKE ONE TO TWO TABLETS BY MOUTH EVERY 6 HOURS NEEDED MAX=6TABS/DAY TAKE ONE TO TWO TABLETS BY MOUTH EVERY 6 HOURS NEEDED MAX=6TABS/DAY SOLD: 12/29/2020 [facility] 5-325 mg 12/22/2020 12:00:00 AM EDT tablet 42 TAKE ONE TO TWO TABLETS BY MOUTH EVERY 6 HOURS NEEDED MAX=6TABS/DAY TAKE ONE TO TWO TABLETS BY MOUTH EVERY 6 HOURS NEEDED MAX=6TABS/DAY SOLD: 12/22/2020 [facility] 40 mg 12/20/2020 12:00:00 AM EDT capsule,delayed release (DR/EC) 30 TAKE ONE CAPSULE BY MOUTH EVERY DAY TAKE ONE CAPSULE BY MOUTH EVERY DAY SOLD: 12/22/2020 [facility] 24 HR Bupropion Hydrochloride 300 MG Extended Release Oral T ablet BUPROPION HCL 12/20/2020 12:00:00 AM EDT tablet extended release 24 hr 30 TAKE ONE TABLET BY MOUTH EVERY DAY TAKE ONE TABLET BY MOUTH EVERY DAY SOLD: 12/22/2020 [facility] 5-325 mg 12/16/2020 12:00:00 AM EDT tablet 42 TAKE ONE TO TWO TABLETS BY MOUTH EVERY 6 HOURS NEEDED MAX=6TABS/DAY TAKE ONE TO TWO TABLETS BY MOUTH EVERY 6 HOURS NEEDED MAX=6TABS/DAY SOLD: 12/16/2020 [facility] 300 mg 12/16/2020 12:00:00 AM EDT capsule 21 TAKE ONE CAPSULE BY MOUTH THREE TIMES A DAY TAKE ONE CAPSULE BY MOUTH THREE TIMES A DAY SOLD: 12/16/2020 [facility] 5-325 mg 12/08/2020 12:00:00 AM EDT tablet 42 TAKE ONE TO TWO TABLETS BY MOUTH EVERY 6 HOURS NEEDED MAX=6TABS/DAY TAKE ONE TO TWO TABLETS BY MOUTH EVERY 6 HOURS NEEDED MAX=6TABS/DAY SOLD: 12/09/2020 [facility] 5-325 mg 12/02/2020 12:00:00 AM EDT tablet 42 TAKE ONE TO TWO TABLETS BY MOUTH EVERY 6 HOURS NEEDED MAX=6TABS/DAY TAKE ONE TO TWO TABLETS BY MOUTH EVERY 6 HOURS NEEDED MAX=6TABS/DAY SOLD: 12/02/2020 [facility] 5-325 mg 11/25/2020 12:00:00 AM EDT tablet 42 TAKE ONE TO TWO TABLETS BY MOUTH EVERY 6 HOURS NEEDED MAX=6TABS/DAY TAKE ONE TO TWO TABLETS BY MOUTH EVERY 6 HOURS NEEDED MAX=6TABS/DAY SOLD: 11/25/2020 [facility] 24 HR Bupropion Hydrochloride 300 MG Extended Release Oral T ablet BUPROPION HCL 11/24/2020 12:00:00 AM EDT tablet extended release 24 hr 30 TAKE ONE TABLET BY MOUTH EVERY DAY TAKE ONE TABLET BY MOUTH EVERY DAY SOLD: 11/25/2020 [facility] 40 mg 11/24/2020 12:00:00 AM EDT capsule,delayed release (DR/EC) 30 TAKE ONE CAPSULE BY MOUTH EVERY DAY TAKE ONE CAPSULE BY MOUTH EVERY DAY SOLD: 11/25/2020 [facility] 5-325 mg 11/19/2020 12:00:00 AM EST tablet 42 TAKE ONE TO TWO TABLETS BY MOUTH EVERY 6 HOURS NEEDED MAX=6TABS/DAY TAKE ONE TO TWO TABLETS BY MOUTH EVERY 6 HOURS NEEDED MAX=6TABS/DAY SOLD: 11/19/2020 [facility] 5-325 mg 11/11/2020 12:00:00 AM EST tablet 42 TAKE ONE TO TWO TABLETS BY MOUTH EVERY 6 HOURS NEEDED MAX=6TABS/DAY TAKE ONE TO TWO TABLETS BY MOUTH EVERY 6 HOURS NEEDED MAX=6TABS/DAY SOLD: 11/13/2020 [facility] 5-325 mg 11/05/2020 12:00:00 AM EST tablet 42 TAKE ONE TO TWO TABLETS BY MOUTH EVERY 6 HOURS NEEDED MAX=6TABS/DAY TAKE ONE TO TWO TABLETS BY MOUTH EVERY 6 HOURS NEEDED MAX=6TABS/DAY SOLD: 11/05/2020 [facility] 24 HR Bupropion Hydrochloride 300 MG Extended Release Oral T ablet BUPROPION HCL 10/29/2020 12:00:00 AM EST tablet extended release 24 hr 30 TAKE ONE TABLET BY MOUTH EVERY DAY TAKE ONE TABLET BY MOUTH EVERY DAY SOLD: 10/29/2020 [facility] 40 mg 10/29/2020 12:00:00 AM EST capsule,delayed release (DR/EC) 30 TAKE ONE CAPSULE BY MOUTH EVERY DAY TAKE ONE CAPSULE BY MOUTH EVERY DAY SOLD: 10/29/2020 [facility] 5-325 mg 10/28/2020 12:00:00 AM EST tablet 42 TAKE ONE TO TWO TABLETS BY MOUTH EVERY 6 HOURS NEEDED MAX=6TABS/DAY TAKE ONE TO TWO TABLETS BY MOUTH EVERY 6 HOURS NEEDED MAX=6TABS/DAY SOLD: 10/29/2020 [facility] 5-325 mg 10/23/2020 12:00:00 AM EST tablet 42 TAKE ONE TO TWO TABLETS BY MOUTH EVERY 6 HOURS NEEDED MAX=6TABS/DAY TAKE ONE TO TWO TABLETS BY MOUTH EVERY 6 HOURS NEEDED MAX=6TABS/DAY SOLD: 10/23/2020 [facility] 5-325 mg 10/17/2020 12:00:00 AM EST tablet 40 TAKE ONE TABLET BY MOUTH EVERY 6 HOURS NEEDED MAX=4TABS/DAY TAKE ONE TABLET BY MOUTH EVERY 6 HOURS A S NEEDED MAX=4TABS/DAY SOLD: 10/17/2020 [facility] 5-325 mg 10/08/2020 12:00:00 AM EST tablet 40 TAKE ONE TABLET BY MOUTH EVERY 6 HOURS NEEDED MAX=4TABS/DAY TAKE ONE TABLET BY MOUTH EVERY 6 HOURS A S NEEDED MAX=4TABS/DAY SOLD: 10/08/2020 [facility] 5-325 mg 10/01/2020 12:00:00 AM EST tablet 30 TAKE ONE TABLET BY MOUTH EVERY 6 HOURS NEEDED MAX=4TABS/DAY TAKE ONE TABLET BY MOUTH EVERY 6 HOURS A S NEEDED MAX=4TABS/DAY SOLD: 10/01/2020 [facility] 24 HR Bupropion Hydrochloride 300 MG Extended Release Oral T ablet BUPROPION HCL 10/01/2020 12:00:00 AM EST tablet extended release 24 hr 30 TAKE ONE TABLET BY MOUTH EVERY DAY TAKE ONE TABLET BY MOUTH EVERY DAY SOLD: 10/01/2020 [facility] 5-325 mg 09/24/2020 12:00:00 AM EST tablet 30 TAKE ONE TABLET BY MOUTH EVERY 6 HOURS NEEDED MAX=4/DAY TAKE ONE TABLET BY MOUTH EVERY 6 HOURS A S NEEDED MAX=4/DAY SOLD: 09/24/2020 [facility] 5-325 mg 09/17/2020 12:00:00 AM EST tablet 30 TAKE ONE TABLET BY MOUTH EVERY 6 HOURS NEEDED MAX=4TABS/DAY TAKE ONE TABLET BY MOUTH EVERY 6 HOURS A S NEEDED MAX=4TABS/DAY SOLD: 09/17/2020 [facility] 5-325 mg 09/10/2020 12:00:00 AM EST tablet 30 TAKE ONE TABLET BY MOUTH EVERY 6 HOURS NEEDED MAX=4TABS/DAY TAKE ONE TABLET BY MOUTH EVERY 6 HOURS A S NEEDED MAX=4TABS/DAY SOLD: 09/10/2020 [facility] 5-325 mg 09/03/2020 12:00:00 AM EST tablet 30 TAKE ONE TABLET BY MOUTH EVERY 6 HOURS NEEDED MAX=4TABS/DAY TAKE ONE TABLET BY MOUTH EVERY 6 HOURS A S NEEDED MAX=4TABS/DAY SOLD: 09/03/2020 [facility] 5-325 mg 08/28/2020 12:00:00 AM EST tablet 30 TAKE ONE TABLET BY MOUTH EVERY 6 HOURS NEEDED MAX=4TABS/DAY TAKE ONE TABLET BY MOUTH EVERY 6 HOURS A S NEEDED MAX=4TABS/DAY SOLD: 08/29/2020 [facility] 50 mg 08/14/2020 12:00:00 AM EST tablet 30 TAKE ONE TO TWO TABLETS BY MOUTH EVERY 4 HOURS NEEDED MAX=6TABS/DAY TAKE ONE TO TWO TABLETS BY MOUTH EVERY 4 HOURS NEEDED MAX=6TABS/DAY SOLD: 08/15/2020 [facility] 40 mg 07/31/2020 12:00:00 AM EST capsule,delayed release (DR/EC) 90 TAKE ONE CAPSULE BY MOUTH EVERY DAY TAKE ONE CAPSULE BY MOUTH EVERY DAY SOLD: 08/03/2020 [facility] 30 mg 07/31/2020 12:00:00 AM EST capsule,delayed release (DR/EC) 90 TAKE ONE CAPSULE BY MOUTH EVERY DAY TAKE ONE CAPSULE BY MOUTH EVERY DAY SOLD: 08/03/2020 [facility] 30 mg 05/21/2020 12:00:00 AM EDT capsule,delayed release (DR/EC) 30 TAKE ONE CAPSULE BY MOUTH EVERY DAY TAKE ONE CAPSULE BY MOUTH EVERY DAY SOLD: 07/03/2020 [facility] Insurance Providers Payer name Policy type / Coverage type Policy ID Covered democrat ID Covered democrat's relationship to michelle Policy Michelle Plan Information [facility] [id number] [facility] 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 K92.1 Melena MELENA Diagnosis 08/18/2020 08:05:00 AM [facility] F17.200 Nicotine dependence, unspecified, uncomp licated NICOTINE DEPENDENCE, UNSPECIFIED, UNCOMPLICATED Diagnosis 08/18/2020 08:05:00 AM [facility] M54.16 Radiculopathy, lumbar region RADICULOPATHY, LUMBAR REG ION Diagnosis 08/04/2020 06:34:00 AM [facility] M47.816 Spondylosis without myelopathy or radicu lopathy, lumbar region SPONDYLOSIS W/O MYELOPATHY OR RADICULOPATHY, LUMBAR REGION Diagnosis 08/04/2020 06:34:00 AM [facility] M51.26 Other intervertebral disc displacement, lumbar region OTHER INTERVERTEBRAL DISC DISPLACEMENT, LUMBAR REGION Diagnosis 2019 06:34:00 AM [facility] K62.5 Hemorrhage of anus and rectum HEMORRHAGE OF ANUS AND R ECTUM Diagnosis 08/01/2020 10:37:00 AM [facility] K64.8 Other hemorrhoids OTHER HEMORRHOIDS Diagnosis 08/01/2020 10:37:00 AM [facility] M54.32 Sciatica, left side SCIATICA, LEFT SIDE Diagnosis 1 10/01/2019 10:37:00 AM [facility] N94.89 Other specified conditions a ssociated with female genital organs and menstrual cycle [facility]TH [facility] ASS[facility] W FEMALE GENITAL ORGANS AND MENSTRUAL C YCLE Diagnosis 08/01/2020 10:37:00 AM [facility] M54.5 Low back pain LOW BACK PAIN Diagnosis 07/28/2020 08:34:00 AM [facility] M51.36 Other intervertebral disc degeneration, lumbar region OTHER INTERVERTEBRAL DISC DEGENERATION, LUMBAR REGION Diagnosis 2019 08:34:00 AM [facility] Surgeries/Procedures Procedure Description Date Indications Data Source(s) PROTHROMBIN TIME PROTHROMBIN TIME 05/07/2021 12:00:00 AM [facility] BASIC METABOLIC PANEL CALCIUM TOTAL METABOLIC PANEL TOTAL CA 05/07/2021 12:00:00 AM [facility] Non-covered item or service NON-COVERED ITEM OR SERVICE 04/13 12:00:00 AM [facility] US PELVIC NONOBSTETRIC IMAGE DCMTN LIMITED/F/U US EXAM PELVI C LIMITED 05/06/2021 12:00:00 AM [facility] 3D RENDER W/INTERP CT/MRI/US/OTH HYACINTH W/POSTPROC 3D RENDER W /INTRP POSTPROCES 05/06/2021 12:00:00 AM [facility] CT ABDOMEN & PELVIS W/O CONTRST 1/> BODY REGIONS CT ABD & PE LV 1/> REGNS 05/06/2021 12:00:00 AM [facility] CT ABDOMEN & PELVIS W/O CONTRAST MATERIAL CT ABD & PELVIS W/ O CONTRAST 05/06/2021 12:00:00 AM [facility] Low osmolar contrast material, 300-399 mg/ml iodine co ncentration, per ml Locm 300-399mg/ml iodine,1ml Long 05/06/2021 12:00:00 AM [facility] [address] SARS-COV-2 COVID-19 AMP PRB 05/06/2021 12:00:00 AM [facility] URNLS DIP STICK/TABLET RGNT AUTO W/O MICROSCOPY URINALYSIS A UTO W/O SCOPE 05/06/2021 12:00:00 AM [facility] BLOOD COUNT COMPLETE AUTO&AUTO DIFRNTL WBC COUNT COMPLETE CB C W/AUTO DIFF WBC 05/06/2021 12:00:00 AM [facility] COMPREHENSIVE METABOLIC PANEL COMPREHEN METABOLIC PANEL 04/13 12:00:00 AM [facility] Injection, propofol, 10 mg 05/06/2021 12:00:00 AM [facility] Injection, fentanyl citrate, 0.1 mg 05/06/2021 12:00:0 0 AM [facility] Injection, morphine sulfate, up to 10 mg 05/06/2021 12 :00:00 AM [facility] Injection, midazolam hydrochloride, per 1 mg 12:00:00 AM [facility] Injection, dexamethasone sodium phosphate, 1mg 021 12:00:00 AM [facility] GRETCHEN POST-VOIDING RESIDUAL URINE&/BLDR CAP US URINE CAPACITY MEASURE 05/06/2021 12:00:00 AM [facility] INSJ TEMP NDWELLG BLADDER CATHETER SIMPLE INSERT TEMP BLADDE R CATH 05/06/2021 12:00:00 AM [facility] THER PROPH/DX NJX EA SEQL IV PUSH SBST/DRUG FAC TX/PRO/DX IN J SAME DRUG DYE RANGE TENDER 05/06/2021 12:00:00 AM [facility] THER PROPH/DX NJX IV PUSH SINGLE/1ST SBST/DRUG THER/PROPH/DI AG INJ IV PUSH 05/06/2021 12:00:00 AM [facility] IV INFUSION HYDRATION EACH ADDITIONAL HOUR HYDRATE IV INFUSI ON ADD-ON 05/06/2021 12:00:00 AM [facility] EMERGENCY DEPT VISIT HIGH SEVERITY&THREAT FUNCJ EMERGENCY DE PT VISIT 05/06/2021 12:00:00 AM [facility] GONADOTROPIN CHORIONIC QUALITATIVE CHORIONIC GONADOTROPIN SAY 05/05/2021 12:00:00 AM [facility] C-REACTIVE PROTEIN C-REACTIVE PROTEIN 05/05/2021 12:00:00 AM [facility] Injection, ceftriaxone sodium, per 250 mg 05/05/2021 1 2:00:00 AM [facility] THERAPEUTIC INJECTION IV PUSH EACH NEW DRUG TX/PRO/DX INJ NE W DRUG ADDON 05/05/2021 12:00:00 AM [facility] IV INFUSION THERAPY/PROPHYLAXIS /DX 1ST TO 1 HR THER/PROPH/D IAG IV INF INIT 05/05/2021 12:00:00 AM [facility] CT ABDOEN & PELVIS W/CONTRAST MATERIAL CT ABD & PELV W/CONTR AST 03/23/2021 12:00:00 AM [facility] CULTURE BACTERIAL QUANTTATIVE COLONY COUNT URINE 03/23 12:00:00 AM [facility] CULTURE BACTERIAL BLOOD AEROBIC W/ID ISOLATES 03/23/20 21 12:00:00 AM [facility] URINALYSIS MICROSCOPIC ONLY 03/23/2021 12:00:00 AM [facility] Injection, ketorolac tromethamine, per 15 mg 12:00:00 AM [facility] Inspection of Lower Intestinal Tract, Vi a Natural or Artificial Opening Endoscopic INSPECTION OF LOWER INTESTINAL TRACT, ENDO 08/18/2020 12:00:00 AM [facility] SIGMOIDOSCOPY FLX DX W/WO COLLJ SPECIMENS DIAGNOSTIC SIGMOID OSCOPY 08/18/2020 12:00:00 AM [facility] OFFICE OUTPATIENT VISIT 10 MINUTES OFFICE/OUTPATIENT VISIT E ST 08/01/2020 12:00:00 AM [facility] Results ID Date Data Source [id number] 07/22/2021 05:43:00 PM EST [facility] COVID-19 Specimen Source NASOPHARYNGEAL Testing was performed using the Aptima SARS-CoV-2 Assay (Immunologix System) Methodology: Nucleic Acid Amplification Neck Band Setter RT-PCR Mediated Amplification (TMA) and Dual Kinetic Assay (DKA) Negative results do not preclude SARS-CoV-2 infection and should not be used as the sole basis for patient management decisions. Negative results must be combined with clinical observations, patient history, and epidemiological information. This test has been authorized by FDA under an (Emergency Use Authorization) EUA for use by authorized laboratories for individuals who are suspected of COVID-19 by their healthcare provider. This test is only authorized for the duration of the declaration that circumstances exist justifying the authorization of emergency use of in vitro diagnostic tests for detection and/or diagnosis of SARS-CoV-2. Fact sheets for this EUA assay can be found at the following links EUA Fact Sheet for Providers: https://www.fda.gov/media/521348/download EUA Fact Sheet for Patients: https://www.fda.gov/media/083011/download THIS IS A STATE REPORTABLE COMMUNICABLE DISEASE. Test Performed By: [facility] [address] [place] [address] Director: Nora Walker MD Name Value Range Interpretation Code Description Data Berta rce(s) Supporting Document(s) ID Date Data Source [id number] 07/18/2021 10:47:00 AM EDT [facility] Name Value Range Interpretation Code Description Data Berta rce(s) Supporting Document(s) Urine Culture [facility] ospital ID Date Data Source [id number] 07/16/2021 03:08:00 PM EDT [facility] Name Value Range Interpretation Code Description Data Berta rce(s) Supporting Document(s) Color,Urine Yellow [facility] pital Clarity,Urine Clear Normal (applies to non-numeric re sults) [facility] Specific [place],Urine 1.001-1.030 Normal (applies to non- numeric results) [facility] PH,Urine 5.0-8.0 Normal (applies to non-numeric resul ts) [facility] Protein,Urine Negative [facility] ospital Glucose,Urine (UA) Negative Normal (applies to non-numer ic results) [facility] Ketones,Urine Negative Normal (applies to non-numeric re sults) [facility] Blood,Urine Negative [facility] pital Bilirubin,Urine Negative Normal (applies to non-numeric results) [facility] Urobilinogen,Urine Norm 0.2-1 Normal (applies to non-numer ic results) [facility] Leukocyte Esterase,Urine Negative [facility] Nitrite,Urine Negative [facility] ospital RBC,Auto Urine 0-2 [facility] WBC Urine Auto 0-10 Normal (applies to non-numeric r esults) [facility] Casts,Hyaline,Urine Auto 0-2 Normal (applies to non -numeric results) [facility] Bacteria Urine Auto None Seen Normal (applies to non-nume meghana results) [facility] Epithelial Cell Ur Auto None-Few Normal (applies to non- numeric results) [facility] ID Date Data Source [id number] 07/16/2021 02:32:00 PM EDT [facility] Name Value Range Interpretation Code Description Data Berta rce(s) Supporting Document(s) Sodium 137 mmol/L 137-145 Normal (applies to non-numeric resul ts) [facility] Potassium 3.5-5.1 Normal (applies to non-numeric resul ts) [facility] Chloride 108 mmol/L 98-112 Normal (applies to non-numeric resul ts) [facility] Carbon Dioxide CO2 22.0-33.0 Normal (applies to non-numer ic results) [facility] Anion Gap 4.0-11.0 Normal (applies to non-numeric resul ts) [facility] BUN 12 mg/dL 7-17 Normal (applies to non-numeric resul ts) [facility] Creatinine 0.70-1.20 Normal (applies to non-numeric resul ts) [facility] GFR 68 mL/min >60 Normal (applies to non-numeric resul ts) [facility] Result based on MDRD formula. Glucose Level 99 mg/dL 74-99 Normal (applies to non-numeric re sults) [facility] The reference range is only applicable w hen fasting. Calcium-Uncorrected 8.4-10.2 Normal (applies to non-nume meghana results) [facility] Corrected Calcium 8.4-10.2 Normal (applies to non-numeri c results) [facility] Bilirubin,Total 0.2-1.3 Normal (applies to non-numeric results) [facility] SGOT(AST) 11 U/L 14-36 Below low normal [facility] SGPT(ALT) 15 U/L 9-52 Normal (applies to non-numeric resul ts) [facility] Alkaline Phosphatase 66 U/L 38-126 Normal (applies to non-num brii results) [facility] can increase Alkaline Phosp le vels up to 2 times the normal adult value. Normal values for children and adolescents are 2 to 3 times the normal adult value. Total Protein 6.3-8.2 Normal (applies to non-numeric re sults) [facility] Albumin 3.5-5.0 Below low normal [facility] ID Date Data Source [id number] 07/16/2021 02:21:00 PM EDT [facility] Name Value Range Interpretation Code Description Data Berta rce(s) Supporting Document(s) White Blood Count 4.8-10.8 Normal (applies to non-numeri c results) [facility] Red Blood Count 3.68-5.22 Normal (applies to non-numeric results) [facility] Hemoglobin 11.2-15.7 Normal (applies to non-numeric resul ts) [facility] Hematocrit 34.1-44.9 Normal (applies to non-numeric resul ts) [facility] Mean Corpuscular Volume 81-99 Normal (applies to non- numeric results) [facility] Mean Corpuscular Hemoglobin 27.0-33.0 Normal (appli es to non-numeric results) [facility] Mean Corpuscular HGB Conc 32.0-36.0 Normal (applies to no n-numeric results) [facility] Red Cell Distribution Width 11.5-14.5 Above high normal [facility] Platelet Count 314 X10 3/uL 130-450 Normal (applies to non-numeric results) [facility] Mean Platelet Volume 9.5-12.7 Normal (applies to non-num brii results) [facility] ID Date Data Source [id number] 07/17/2021 06:14:00 AM EDT [facility] Name: JEANNETTE VIGIL : 1985 Ag e/Sex: 36F Ordering Provider: Kurtis Pinedo MD Med Rec #: [id number] Reg Status: [facility] REF Room #: Date of Service: 07/16/21 Report Number: [id number] cc:Rosi Rogers MD; Kurtis Pinedo MD Send Report To: [id number] XRP/XR Chest 2 View [Pa & Lat] Reason for exam: INJURY TO URETER FINDINGS: The cardiac and mediastinal silhouettes appear normal and the lungs are clear. The bones and soft tissues are normal. The upper abdomen is unremarkable. IMPRESSION: No acute disease identifiable. Fluoroscopy time in seconds: 0 Number of Exposures: 2 Time Portable Image Performed: Contrast Agent in ml: Method of Administration: REPORT SIGNATURE ON FILE Reported By: Chris Steni DO Electronically signed by: Chris Stein DO 07/17/21 1242 Dictation Date/Time: 07/16/21 1439 Transcribed Date/Time: 07/17/21 0614 Irrigator Overhead: CARMEN Name Value Range Interpretation Code Description Data Berta rce(s) Supporting Document(s) ID Date Data Source [id number] 07/16/2021 04:00:00 PM EDT [facility] Name: JEANNETTE VIGIL : 1985 Ag e/Sex: 36F Ordering Provider: Kurtis Pinedo MD Med Rec #: [id number] Reg Status:REG REF Room #: Date of Service: 07/16/21 Report Number: [id number] cc: Rosi Rogers MD; Kurtis Pinedo MD Send Report To: Reason for exam: INJRY RIHGT URETER SINUS RHYTHM NORMAL ECG NO SIGNIFICANT CHANGE Physician Inspecting And Testing Lead Hand: Harvey Townsend M.D. ECG HEART RATE: 60 /min ECG RR INTERVAL: 984 ms ECG P DURATION: 109 ms ECG QRS DURATION: 93 ms ECG NM INTERVAL: 161 ms ECG QT INTERVAL: 401 ms ECG QTC INTERVAL: 401 ms Q-T dispersion: ms ECG P AXIS: 69 deg ECG QRS AXIS: 89 deg ECG T AXIS: 70 deg REPORT SIGNATURE ON FILE 07/16/21 1600 Reported By: Harvey Townsend MD <<Signature on File>> Exam Date/Time: 07/16/21 1330 Order #: [id number] Dictation Date/Time: 07/16/211599 Transcribed Date/Time: 07/16/211599 Irrigator Overhead: JANEL Name Value Range Interpretation Code Description Data Berta rce(s) Supporting Document(s) ID Date Data Source [id number] 05/06/2021 10:51:00 AM EDT [facility] Name: JEANNETTE VIGIL [facility] Rec #: [id number] 4 : 1985 Age/Sex: 36F Date of Service: 05/06/21 DISPOSITION SUMMARY [facility]charge Summary [facility] Age:36 yrs Sex:Female :1985 Arrival:05/06/2021 10:51 Departure Date05/06/2021 Departure Time18:11 Private MD:Rosi Rogers MD Outcome: Hospitalize Location: Operating Room Condition: Fair Chief Complaint: Urinary Problem Diagnosis: - Right ureteral ligation with fistulization Prescriptions: Custom Notes: Attending Physician: Miko Solis MD Private MD: Rosi Rogers MD Mid Level Provider: Hospitalizing Provider: Kristi Hernandez MD Orders: Cbc With Auto Differential, COMMET, UA., Ct Abdo & Pelvis without Contrast, Us Pelvic Limited, POC COVID19 NOW, morphine, NS 0.9%, Ct Abdomen & Pelvis with Con, CT Virtual IVP, 3D Recon Independent Station, morphine, XR C-Arm No Charge, Admit to Inpatient, Collect Urine - Clean Catch, Bladder Scan, Nice Catheter, Saline Lock, NPO, POC - Collect COVID-19 swab Discharge Instruction: Medication Reconciliation, SBAR, Fax Visit Summary for Rosi Rogers MD Name Value Range Interpretation Code Description Data Berta rce(s) Supporting Document(s) ID Date Data Source [id number] 05/06/2021 10:51:00 AM EDT [facility] Name: JEANNETTE VIGIL Med Rec #: [id number] 4 : 1985 Age/Sex: 36F Date of Service: 05/06/21 PHYSICIAN CHART Physician Documentation [facility] Name: [facility] Age: 36 yrs Sex: Female : 1985 Arrival Date: 05/06/2021 Time: 10:51 Bed 7 Private MD: Rosi Rogers ED Physician Miko Solis HPI: 05/06 17:57 This 36 yrs old Female presents to ER via Walk-In kmu with complaints of Urinary Problem. 17:57 36-year-old female seen yesterday for having flank pain, kmu diagnosed with Hydromet, as well as mild right ureteral fullness, had appointments made with specialist at [facility] for reconstruction of right ureter, attempted to keep set appointments this morning, clerical staff at [facility] urologist office unaware of patient, patient having difficulty in retrieving follow-up, notes persistence in symptoms, presents back to the ED after discussion on phone for possible urinary retention. Patient has no flank pain, no fevers chills sweats, no dysuria and see frequency, patient does have incontinence infrequently. No leg pain no leg swelling, no orthopnea.. 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 bupropion HCl 300 mg Oral Tb24 1 tab once daily 2. estradiol 1 mg Oral tab 1 tab once daily 3. hydrocodone-acetaminophen 5-325 mg Oral tab 1 tab every 6 hours 4. omeprazole 40 mg Oral cpDR 1 cap once daily 5. oxybutynin chloride 10 mg Oral tr24 1 tab once daily 6. tamsulosin 0.4 mg Oral cap 1 cap once daily - PMHx: compartment syndrome - leg; GERD; - PSHx: hysterectomy; leg surgery vein; polyps removed; R-kidney stent; - Med Reconciliation:: Green Alert: The patient's med l ist is complete to the best of the nurse's/provider's knowledge. Medications reviewed, completed by nurse verbally from patient/family. - Immunization history,: COVID-19 vaccine: Two dose series complete. - Advance directive: There is no existing advanced directive. Information offered. - Social History: Smoking status (Tobacco): Patient states he/she has never smoked tobacco. Preferred Language: Vincentian. ROS: 17:59 Constitutional: Negative for fever, chills, and weight kmu loss, Eyes: Negative for injury, pain, redness, and discharge, ENT: Denies pain, sore throat, difficulty speaking or swallowing Neck: Negative for injury, pain, and swelling, Cardiovascular: Negative for chest pain, palpitations, and edema, Respiratory: Negative for short ness of breath, cough, wheezing, and pleuritic chest pain. MS/Extremity: Negative for injury and deformity, Skin: Negative for injury, rash, and discoloration, Neuro: Negative for headache, weakness, numbness, tingling, and seizure. Abdomen/GI: See HPI. See HPI. Exam: 17:59 Constitutional: This is a well developed, well nourished kmu patient who is awake, alert, and in no acute distress. Head/Face: Normocephalic, atraumatic. Eyes: Pupils equal round and reactive to light, extra-ocular motions intact. Lids and lashes normal. Conjunctiva and sclera are non-icteric and not injected. No corneal lesions notes. Periorbital areas with no swelling, redness, or edema. ENT: Nares patent. No nasal discharge, Oropharynx with no redness, swelling, or masses, exudates, or evidence of obstruction, uvula midline. Mucous membranes moist. Neck: Trachea midline, no thyromegaly or masses noted, and no cervical lymphadenopathy. Supple, full range of motion without nuchal rigidity. No Men ingismus. Chest/axilla: Normal chest wall appearance and motion. Nontender with no deformity. No lesions are appreciated. Cardiovascular: Regular rate and rhythm with a normal S1 and S2. No gallops, murmurs, or rubs. Normal PMI, no JVD. No pulse deficits. Respiratory: Lungs have equal breath sounds bilaterally, clear to auscultation and percussion. No rales, rhonchi or wheezes noted. No increased work of breathing, no retractions or nasal flaring. 17:59 Abdomen/GI: Inspection: abdomen appears normal, Bowel sounds: normal, Palpation: mild abdominal tenderness, in the suprapubic area. 17:59 Back: CVA tenderness, is absent. 17:59 : a nice is noted, Approximately 30 cc effluent upon insertion of Nice catheter. Shortly after insertion Nice catheter patient had large amount of incontinence on the bed around the Nice catheter.. Vital Signs: 11:05 BP 123 / 52; Pulse 57; Resp 18; Temp 98.3(TE); Pulse Ox 99% md1 on R/A; Weight 52.62 kg; Height 5 ft. 5 in. (165.10 cm); Pain 6/10; 13:41 BP 131 / 91; Pulse 63; Resp 18; Pulse Ox 99% on R/A; Pain md1 6/10; 14:15 BP 109 / 76; Pulse 67; Resp 18; Pulse Ox 99% on R/A; Pain md1 4/10; 16:35 BP 116 / 71; Pulse 62; Resp 18; Pulse Ox 99% on R/A; Pain md1 3/10; 17:45 BP 119 / 63; Pulse 67; Resp 18; Temp 98.0(TE); Pulse Ox 99% md1 on R/A; Pain 4/10; 11:05 Body Mass Index 19.30 (52.62 kg, 165.10 cm) md1 MDM: 11:04 Patient medically screened. kmu 18:00 Data reviewed: vital signs, nurses notes, old medical kmu records, lab test result(s), radiologic studies. ED course: Patient's laboratory examinations reviewed. CT abdomen pelvis performed post Nice catheter, severe tenting of bladder noted with Nice catheter placement, fluid collection posterior inferior to bladder still present with no significant change. Case discussed with urology Dr. Maldonado, care plan developed, possible percutaneous nephrostomy tube to be placed. Case discussed with Dr. Weber interventional radiology, to confer with urology for care plan. Upon review of CT, depth Dr. Weber advised virtual CT IVP, as well as pelvic ultrasound. Care plan discussed with patient continually, urology and radiology conferred, patient eventually transferred to the OR for probable bilateral double-J ureteral stents. Case discussed with hospitalist service for admission.. 05/06 11:05 Order name: Cbc With Auto Differential; Complete Time: 12:23[facility] 05/06 11:05 Order name: COMMET; Complete Time: 12:23 [facility] 05/06 11:05 Order name: UA. [facility] 05/06 12:26 Order name: Ct Abdo & Pelvis without Contrast [facility] [place] 05/06 14:34 Order name: Us Pelvic Limited u 05/06 16:15 Order name: POC COVID19 NOW md1 05/06 14:39 Order name: CT Virtual IVP EDTX 05/06 14:41 Order name: 3D Recon Independent Station EDTX 05/06 17:12 Order name: XR C-Arm No Charge [facility] 05/06 18:01 Order name: Admit to Inpatient EDTX 05/06 11:05 Order name: Collect Urine - Clean Catch; Complete Time: kmu 12:08 05/06 11:05 Order name: Bladder Scan; Complete Time: 11:44 kmu 05/06 11:05 Order name: Nice Catheter; Complete Time: 11:55 u 05/06 11:05 Order name: Saline Lock; Complete Time: 13:41 [facility] 05/06 13:18 Order name: NPO; Complete Time: 13:24 [facility] 05/06 15:53 Order name: POC - Collect COVID-19 swab; Complete Time: md1 15:54 Dispensed Medications: 13:41 Drug: morphine 4 mg [morphine 4 mg/mL injection syringe (1 md1 mL)] Route: IVP; Site: left antecubital; 15:36 Follow up: Response: Pain is decreased md1 13:41 Drug: NS 0.9% 1000 ml [sodium chloride 0.9 % intravenous md1 solution] Route: IV; Rate: 150 mL/hr; Site: left antecubital; 14:41 Follow up: IV Status: Completed infusion md1 16:05 Drug: morphine 4 mg [morphine 4 mg/mL injection syringe (1 md1 mL)] Route: IVP; Site: left antecubital; 16:35 Follow up: Response: Pain is decreased md1 Disposition Summary: 05/06/21 17:54 Hospitalization Ordered Hospitalization Status: Inpatient Admission kmu Provider: Kristi Hernandez kmu Location: Operating Room kmu Condition: Fair kmu Problem: an ongoing problem kmu Symptoms: have worsened kmu Bed/Room Type: Inpatient kmu Room Assignment: kmu Diagnosis - Right ureteral ligation with fistulization kmu Additional Information - Patient Status Inpatient. kmu Forms: - Medication Reconciliation kmu - SBAR kmu Signatures: Dispatcher [facility] Jamilah Peters RN RN Miko Salvador MD MD kmu Corrections: (T he following items were deleted from the chart) 14:39 14:34 CT Abdomen & Pelvis w Con+CT.RAD.CAN ordered. EDMS EDMS Name Value Range Interpretation Code Description Data Berta rce(s) Supporting Document(s) ID Date Data Source [id number] 05/06/2021 10:51:00 AM EDT [facility] Name: JEANNETTE VIGIL [facility] Rec #: [id number] 4 : 1985 Age/Sex: 36F Date of Service: 05/06/21 NURSE CHART Nurse's Notes [facility] Name: [facility] Age: 36 yrs Sex: Female : 1985 Arrival Date: 05/06/2021 Time: 10:51 Bed 7 Private MD: Rosi Rogers Diagnosis: Right ureteral ligation with fistulization Presentation: 05/06 11:02 Acuity: Urgent - 3 md1 11:02 Method Of Arrival: Walk-In md1 11:02 Transition of care: patient was not received from another md1 setting of care. Presenting complaint: Patient states - that she has a knicked ureter and was here yesterday and was called to come back today for further evaluation. Have you travelled in the last 30 days? No. Have you had contact with an individual with a confirmed diagnosis of Ebola or COVID-19? No. Triage Assessment: 11:56 SEPSIS SCREEN: A Confirmed or Suspected Infection is md1 Unknown, SIRS or Sepsis criteria is not present. Suicide Screening: Have you had thoughts of harming yourself or others? No, Behavioral health complaint? No. The patient appears to have some mild discomfort, The patient is cooperative. Patient states the pain is currently a 6 / 10 The patient reports his/her pain at its worst was 10 out of 10 on a 1-10 pain scale. The patient complains of pain in right lower quadrant. Patient denies any radiating pain. The patient states the pain began 1weeks ago. The quality of the pain is described as sharp, The pain is described as continuous, The patient is not exhibiting any nonverbal signs of pain. Neuro: Level of Consciousness is awake, alert, obeys commands, Patient is oriented to person, place and time. Respiratory: Airway is patent. Respiratory effort is even, Respiratory pattern is regular, Breath sounds are clear bilaterally. GI: Abdomen is flat, non- distended Bowel sounds present X 4 quads. : Patient reports incontinence. Derm: No deficits noted. Musculoskeletal: No deficits noted. 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 bupropion HCl 300 mg Oral Tb24 1 tab once daily 2. estradiol 1 mg Oral tab 1 tab once daily 3. hydrocodone-acetaminophen 5-325 mg Oral tab 1 tab every 6 hours 4. omeprazole 40 mg Oral cpDR 1 cap once daily 5. oxybutynin chloride 10 mg Oral tr24 1 tab once daily 6. tamsulosin 0.4 mg Oral cap 1 cap once daily - PMHx: compartment syndrome - leg; GERD; - PSHx: hysterectomy; leg surgery vein; polyps removed; R-kidney stent; - Med Reconciliation:: Green Alert: The patient's med list is complete to the best of the nurse's/provider's knowledge. Medications reviewed, completed by nurse verbally from patient/family. - Immunization history,: COVID-19 vaccine: Two dose series complete. - Advance directive: There is no existing advanced directive. Information offered. - Social History: Smoking status (Tobacco): Patient states he/she has never smoked tobacco. Preferred Language: Vincentian. Screenin:10 AUDIT 1. How often do you have a drink containing alcohol? md1 Never (0 points). Drug Abuse Screening Test: 1. Have you used drugs other than those required for medical reasons? No (0 points), screen is complete, no risk. Abuse screen: Denies threats or abuse. Nutritional screening: No deficits noted. Patient has no identifiable fall risk (Lindsay Scale: 0 points). Assessment: 13:41 See Triage Assessment. md1 Vital Signs: 11:05 BP 123 / 52; Pulse 57; Resp 18; Temp 98.3(TE); Pulse Ox 99% md1 on R/A; Weight 52.62 kg; Height 5 ft. 5 in. (165.10 cm); Pain 6/10; 13:41 BP 131 / 91; Pulse 63; Resp 18; Pulse Ox 99% on R/A; Pain md1 6/10; 14:15 BP 109 / 76; Pulse 67; Resp 18; Pulse Ox 99% on R/A; Pain md1 /10; 16:35 BP 116 / 71; Pulse 62; Resp 18; Pulse Ox 99% on R/A; Pain md1 3/10; 17:45 BP 119 / 63; Pulse 67; Resp 18; Temp 98.0(TE); Pulse Ox 99% md1 on R/A; Pain 4/10; 11:05 Body Mass Index 19.30 (52.62 kg, 165.10 cm) md1 ED Course: 10:51 Patient arrived in ED. lm 11:02 Jamilah Braun, RN is Primary Nurse. md1 11:03 Triage completed. md1 11:04 Miko Solis MD is Attending Physician. [facility] 11:55 Rosi Rogers MD is Private Physician. md1 12:08 Arm band placed on right wrist. Patient has correct armband md1 on for positive identification. Placed in gown. Bed in low position. Call light in reach. Side rails up X2. 12:11 Patient has correct armband on for positive identification, md1 Placed in gown, Bed in low position, Call light in reach, Side rails up X2. 12:11 Bladder Scan Bladder scan detected 97milliliters of urine. md1 Catheter placed because of urinary retention. Nice catheter inserted. 16 Fr. The balloon size is 10. Balloon inflated to appropriate size. To gravity drainage. Urine specimen collected. Tamper seal around tubing inspected and found to be intact. Urine specimen cup is labeled in the patient's room. Catheter bag is not on the Floor. returned clear yellow urine returned. Patient tolerated well. 13:24 Ct Abdo & Pelvis without Contrast Sent. mdJonathan 13:45 Radiology: The patient went to get his/her CT at 12:30. beverley 13:45 Inserted saline lock: 20 gauge in left antecubital area. md1 15:35 Us Pelvic Limited Sent. md1 15:37 CT Virtual IVP Sent. md1 15:37 3D Recon Independent Station Sent. md1 16:15 The patient was tested for COVID-19 and the result was beverley negative, provider notified: Miko Solis MD. 17:46 No procedures ordered. md1 17:51 Werner Maldonado is Hospitalizing Provider. kmu 17:52 Hospitalizing Provider role handed off by Werner Maldonado kmu 17:52 Kristi Walter MD is Hospitalizing Provider. kmu Administered Medications: 13:41 Drug: morphine 4 mg [morphine 4 mg/mL injection syringe (1 md1 mL)] Route: IVP; Site: left antecubital; 15:36 Follow up: Response: Pain is decreased md1 13:41 Drug: NS 0.9% 1000 ml [sodium chloride 0.9 % intravenous md1 solution] Route: IV; Rate: 150 mL/hr; Site: left antecubital; 14:41 Follow up: IV Status: Completed infusion md1 16:05 Drug: morphine 4 mg [morphine 4 mg/mL injection syringe (1 md1 mL)] Route: IVP; Site: left antecubital; 16:35 Follow up: Response: Pain is decreased md1 Outcome: 17:45 Patient verbalized understanding of disposition md1 instructions. Patient has no functional deficits. 17:45 Patient admitted to the OR. accompanied by nurse, via stretcher, with chart. 17:45 Condition: stable 17:45 Not Applicable. 17:45 Vitals are Complete in accordance with Emergency Department Policy. 17:46 Report given to Sunny from OR mdJonathan 17:54 Decision to Hospitalize by Provider. kmu 18:11 Patient left the ED. beverley 05/07 08:46 24 hour call back N/A - patient was admitted sj Signatures: Luly Rosales RN RN Jamilah Braun RN RN md1 Miko Solis MD MD kmu Sergei, [place], Reg Reg lmm Name Value Range Interpretation Code Description Data Berta rce(s) Supporting Document(s) ID Date Data Source [id number] 05/07/2021 08:12:00 AM EDT [facility] Name Value Range Interpretation Code Description Data Berta rce(s) Supporting Document(s) Sodium 139 mmol/L 137-145 Normal (applies to non-numeric resul ts) [facility] Potassium 3.5-5.1 Normal (applies to non-numeric resul ts) [facility] Chloride 108 mmol/L 98-112 Normal (applies to non-numeric resul ts) [facility] Carbon Dioxide CO2 22.0-33.0 Normal (applies to non-numer ic results) [facility] Anion Gap 4.0-11.0 Below low normal [facility] BUN 10 mg/dL 7-17 Normal (applies to non-numeric resul ts) [facility] Creatinine 0.70-1.20 Normal (applies to non-numeric resul ts) [facility] GFR 84 mL/min >60 Normal (applies to non-numeric resul ts) [facility] Result based on MDRD formula. Glucose Level 113 mg/dL 74-99 Above high normal [facility] The reference range is only applicable w hen fasting. Calcium-Uncorrected 8.4-10.2 Normal (applies to non-nume meghana results) [facility] Corrected Calcium 8.4-10.2 Normal (applies to non-numeri c results) [facility] ID Date Data Source [id number] 05/07/2021 07:02:00 AM EDT [facility] Name Value Range Interpretation Code Description Data Berta rce(s) Supporting Document(s) PT 9.4-12.5 Normal (applies to non-numeric results) [facility] INR Normal (applies to non-numeric results) [facility] The use of the INR is restricted to aminta ents on stable oral anticoagulant. Therapeutic Range: 2.0-3.0 High Risk Values: 2.5-3.5 ID Date Data Source [id number] 05/07/2021 06:46:00 AM EDT [facility] Name Value Range Interpretation Code Description Data Berta rce(s) Supporting Document(s) White Blood Count 4.8-10.8 Above high normal [facility] Red Blood Count 3.68-5.22 Normal (applies to non-numeric results) [facility] Hemoglobin 11.2-15.7 Normal (applies to non-numeric resul ts) [facility] Hematocrit 34.1-44.9 Normal (applies to non-numeric resul ts) [facility] Mean Corpuscular Volume 81-99 Normal (applies to non- numeric results) [facility] Mean Corpuscular Hemoglobin 27.0-33.0 Below low normal [facility] Mean Corpuscular HGB Conc 32.0-36.0 Normal (applies to no n-numeric results) [facility] Red Cell Distribution Width 11.5-14.5 Above high normal [facility] Platelet Count 374 X10 3/uL 130-450 Normal (applies to non-numeric results) [facility] Mean Platelet Volume 9.5-12.7 Normal (applies to non-num brii results) [facility] Imm Grans% (AUTO) 0 % 0-2 Normal (applies to non-numeri c results) [facility] Neutrophils % (AUTO) 75 % 40-75 Normal (applies to non-num brii results) [facility] Lymphocytes % (AUTO) 19 % 21-46 Below low normal [facility] Monocytes % (AUTO) 5 % 5-12 Normal (applies to non-numer ic results) [facility] Eosinophils % (AUTO) 0 % 1-5 Below low normal [facility] Basophils % (AUTO) 0 % 0-1 Normal (applies to non-numer ic results) [facility] Imm Grans# (AUTO) 0.0-0.5 Normal (applies to non-numeri c results) [facility] Neutrophils # (AUTO) 1.5-8.1 Above high normal [facility] Lymphocytes # (AUTO) 1.0-3.1 Normal (applies to non-num brii results) [facility] Monocytes # (AUTO) 0.2-1.3 Normal (applies to non-numer ic results) [facility] Eosinophils# (AUTO) 0.0-0.5 Normal (applies to non-nume meghana results) [facility] Basophils # (AUTO) 0.0-0.1 Normal (applies to non-numer ic results) [facility] ID Date Data Source [id number] 05/07/2021 08:51:00 AM EDT [facility] Name: JEANNETTE VIGIL : 1985 Ag e/Sex: 36F Ordering Provider: Werner Maldonado MD Med Rec #: [id number] Reg Status: ADM IN Room #: 250-5A Date of Service: 05/06/21 Report Number: [id number] cc: Send Report To: [id number] XRP/XR C-Arm No Charge Reason for exam: RETROGRADE/ STENT PLACEMENT FINDINGS: Fluoroscopy was used during the OR procedure performed same date of service. Forcomplete details, please see OP report. Fluoroscopy time in seconds: 21.1 Number of Exposures: 14 Time Portable Image Performed: Contrast Agent in ml: Method of Administration: REPORT SIGNATURE ON FILE Reported By: Werner Maldonado MD Electronically signed by: Werner Maldonado MD 05/07/21 0852 Dictation Date/Time: 05/06/21 356 Transcribed Date/Time: 05/07/21 0877 Irrigator Overhead: SANTY Name Value Range Interpretation Code Description Data Berta rce(s) Supporting Document(s) ID Date Data Source [id number] 05/05/2021 12:11:00 PM EDT [facility] Name: JEANNETTE VIGIL [facility] Rec #: [id number] 4 : 1985 Age/Sex: 36F Date of Service: 05/05/21 DISPOSITION SUMMARY [facility]charge Summary [facility] Age:36 yrs Sex:Female :1985 Arrival:05/05/2021 12:11 Departure Date05/05/2021 Departure Time16:59 Private MD:Rosi Rogers MD Outcome: Discharge Location: Home/Self Care Condition: Good Chief Complaint: Urinary Incontinence, Fever Diagnosis: - Right ureteral injury with leak Prescriptions: Macrodantin 100 mg Oral Capsule - take 1 capsule by ORAL route 2 times per day for 10 days; 20 capsule Follow up: Rosi Rogers MD Custom Notes: <span>Take Macrobid antibiotic 100 mg twice daily for 10 days.</span><span> Pain medications as previously prescribed Vicodin</span><span> 1 to 2 tablets every 4 hours as needed,</span><span> Motrin 400 mg</span><span> 1 tablet every 8 hours</span><span> only as needed.</span><span> Follow-up with urology Dr. Hung and </span> Shahida <span>as discussed</span><span>, [phone]</span>. Call today for appointment this week</span> Attending Physician: Miko Solis MD Private MD: Rosi Rogers MD Mid Level Provider: Followup Physician: Rosi Rogers MD Orders: CRP - Wide Range, Cbc With Auto Differential, Comprehensive Metabolic Prof., UA., Abdomen/Pelvis CT without Contrast, Beta Hcg,Qualitative, NS 0.9%, Collect Urine - Clean Catch, Iv Saline Lock, NPO, morphine, cefTRIAXone Discharge Instruction: Discharge Summary Sheet, Ureteral Stent Implantation, Care After, Medication Reconciliation, Fax Visit Summary for Rosi Rogers MD Name Value Range Interpretation Code Description Data Berta rce(s) Supporting Document(s) ID Date Data Source [id number] 05/05/2021 12:11:00 PM EDT [facility] Name: JEANNETTE VIGIL [facility] Rec #: [id number] 4 : 1985 Age/Sex: 36F Date of Service: 05/05/21 PHYSICIAN CHART Physician Documentation [facility] Name: Jeannette Vigil Age: 36 yrs Sex: Female : 1985 Arrival Date: 05/05/2021 Time: 12:11 Bed 8 Private MD: Rosi Rogers ED Physician Miko Solis HPI: 05/05 16:23 This 36 yrs old Female presents to ER via Walk-In kmu with complaints of Urinary Incontinence, Fever. 16:23 36-year-old female status post hysterectomy in October, kmu with damage to the right ureter, was had multiple stents placed since an attempt to have the ureter heal, patient presents again today to the ED with having fever for the past 2 days and right-sided abdominal pain consistent with prior ureteral leak and possible infection. Patient had her urology care in [place], has been calling her urologist for the past 2 days and has had no answer. Patient is unhappy with her care there and would like to switch urological care to here. Denies dysuria and see frequency has no nausea vomiting. Patient has no known coronavirus contacts.. PASTRY DECORATOR: 12:26 LMP N/A - Hysterectomy tp1 Historical: - Allergies: Bees; PENICILLINS; - Home Meds: 1. estradiol 1 mg Oral tab 1 tab once daily 2. omeprazole 40 mg Oral cpDR 1 cap once daily 3. hydrocodone-acetaminophen 5-325 mg Oral tab 1 tab every 6 hours 4. bupropion HCl 300 mg Oral Tb24 1 tab once daily - PMHx: compartment syndrome - leg; GERD; - PSHx: hysterectomy; leg surgery vein; polyps removed; R-kidney stent; - Med Reconciliation:: Green Alert: The patient's med list is complete to the best of the nurse's/provider's knowledge. Medications reviewed, completed by nurse verbally from patient/family. - Immunization history,: COVID-19 vaccine: Not immunized. - Advance directive: There is no existing advanced directive. Information offered. - Family History:: mother has a history of cardiac disorder. - Social History: Smoking status (Tobacco): Patient states is a heavy tobacco smoker (>10 cigarettes a day). No barriers to communication noted, The patient speaks fluent Vincentian. ROS: 16:25 Constitutional: Negative for fever, chills, and weight kmu loss, Eyes: Negative for injury, pain, redness, and discharge, ENT: Denies pain, sore throat, difficulty speaking or swallowing Neck: Negative for injury, pain, and swelling, Cardiovascular: Negative for chest pain, palpitations, and edema, Respiratory: Negative for shortness of breath, cough, wheezing, and pleuritic chest pain. MS/Extremity: Negative for injury and deformity, Skin: Negative for injury, rash, and discoloration, Neuro: Negative for headache, weakness, numbness, tingling, and seizure. Abdomen/GI: See HPI. : See HPI. All other systems are negative. Exam: 16:26 Constitutional: This is a well developed, well nourished u patient who is awake, alert, and in no acute distress. Head/Face: Normocephalic, atraumatic. Eyes: Pupils equal round and reactive to light, extra-ocular motions intact. Lids and lashes normal. Conjunctiva and sclera are non- icteric and not injected. No corneal lesions notes. Periorbital areas with no swelling, redness, or edema. ENT: Nares patent. No nasal discharge, Oropharynx with no redness, swelling, or masses, exudates, or evidence of obstruction, uvula midline. Mucous membranes moist. Neck: Trachea midline, no thyromegaly or masses noted, and no cervical lymphadenopathy. Supple, full range of motion without nuchal rigidity. No Meningismus. Chest/axilla: Normal chest wall appearance and motion. Nontender with no deformity. No lesions are appreciated. Cardiovascular: Regular rate and rhythm with a normal S1 and S2. No gallops, murmurs, or rubs. Normal PMI, no JVD. No pulse deficits. Respiratory: Lungs have equal breath sounds bilaterally, clear to auscultation and percussion. No rales, rhonchi or wheezes noted. No increased work of breathing, no retractions or nasal flaring. 16:26 Back: Full range of motion without hesitation or pain Skin: Warm, dry with normal turgor. Normal color with no rashes, no lesions MS/ Extremity: Pulses equal, no cyanosis. Full, normal range of motion. Neuro: Awake and alert, oriented to person, place, time, and situation. Motor sensory intact. No gross focal deficits 16:26 Abdomen/GI: Inspection: abdomen appears normal, Bowel sounds: normal, Palpation: mild abdominal tenderness, in the right lower quadrant, rebound tenderness, is not appreciated. Vital Signs: 12:26 BP 150 / 102; Pulse 72; Resp 16; Temp 98.6; Pulse Ox 100% tp1 on R/A; Weight 52.62 kg; Height 5 ft. 5 in. (165.10 cm); Pain 10/10; 14:34 BP 101 / 59; Pulse 58 MON; Resp 16 S; Pulse Ox 99% on R/A; rp1 12:26 Body Mass Index 19.30 (52.62 kg, 165.10 cm) tp1 MDM: 16:13 Patient medically screened. kmu 16:27 Data reviewed: vital signs, nurses notes, lab test kmu result(s), radiologic studies. ED course: Patient's laboratory examinations reviewed, patient has normal white blood cell count, normal renal function. CT abdomen pelvis reviewed, patient has fluid in pelvis and right ureteral fullness consistent with potential Hydromet. Please see radiology note. Case discussed with Dr. Maldonado from urology here, r ecommended Dr. Hung from urology in [facility] who specializes in ureteral repair. Case discussed withDr pinedo urology from [facility], agrees this patient is a good candidate for evaluation for possible ureteral repair, recommends patient be seen in office this week. Care plan discussed with patient who is amenable to this plan. Antibiotics discussed and prescribed for patient, patient received IV antibiotics here. . 05/05 12:49 Order name: CRP - Wide Range; Complete Time: 15:15 [facility] [place] 05/05 12:49 Order name: Cbc With Auto Differential [facility] [place] [place] 05/05 12:49 Order name: Comprehensive Metabolic Prof.; Complete Time: kmu 15:15 05/05 12:49 Order name: Abdomen/Pelvis CT without Contrast [facility] [place] 05/05 12:49 Order name: Beta Hcg,Qualitative; Complete Time: 15:15 u 05/05 12:49 Order name: Iv Saline Lock; Complete Time: 13:19 kmu 05/05 12:49 Order name: NPO; Complete Time: 12:58 kmu Dispensed Medications: 13:20 Drug: NS 0.9% 1000 ml [sodium chloride 0.9 % intravenous rp1 solution] Route: IV; Rate: 999 mL/hr; Site: left antecubital; 14:15 Follow up: Response: No adverse reaction; No change in rp1 condition; IV Status: Completed infusion; IV Intake: 1000ml 13:27 Drug: morphine 4 mg [morphine 4 mg/mL injection syringe (1 rp1 mL)] Route: IVP; Site: left antecubital; 14:15 Follow up: Response: Pain is decreased rp1 14:24 Drug: cefTRIAXone 1 grams [ceftriaxone 1 gram solution for rp1 injection] Route: IVPB; Site: left antecubital; 15:07 Follow up: IV Status: Completed infusion; IV Intake: 50ml am7 Disposition Summary: 05/05/21 16:13 Discharge Ordered Location: Home/Self Care kmu Problem: an ongoing problem kmu Symptoms: are unchanged kmu Condition: Good kmu Diagnosis - Right ureteral injury with leak kmu Followup: u - With: Rosi Rogers MD - When: Today - Reason: Recheck today's complaints, Continuance of care Discharge Instructions: - Discharge Summary Sheet kmu - Ureteral Stent Implantation, Care After kmu Forms: - Medication Reconciliation kmu Prescriptions: - Macrodantin 100 mg Oral Capsule - take 1 capsule by ORAL route 2 times per day for 10 kmu days; 20 capsule; Refills: 0, Product Selection Permitted Signatures: Dispatcher [employer] Sergio Orozco, RN RN tp1 Miko Solis MD MD u Jennyfer Flores RN RN rp1 Sofie Miller RN am7 Name Value Range Interpretation Code Description Data Berta rce(s) Supporting Document(s) ID Date Data Source [id number] 05/05/2021 12:11:00 PM EDT [facility] Name: JEANNETTE VIGIL [facility] Rec #: [id number] 4 : 1985 Age/Sex: 36F Date of Service: 05/05/21 NURSE CHART Nurse's Notes [facility] Name: Jeannette Vigil Age: 36 yrs Sex: Female : 1985 Arrival Date: 05/05/2021 Time: 12:11 Bed 8 Private MD: Rosi Rogers Diagnosis: Right ureteral injury with leak Presentation: 05/05 12:21 Method Of Arrival: Walk- In tp1 12:22 Transition of care: patient was not received from another tp1 setting of care. Presenting complaint: Patient states - She had a hysterectomy on the December , during which they damaged the bladder, January 12 they placed a stent in her left ureter. it has been taken out and replaced once and then taken out last Tuesday and then she has had periods of retention and incontance. Have you travelled in the last 30 days? No. Have you had contact with an individual with a confirmed diagnosis of Ebola or COVID-19? No. 12:22 Acuity: Urgent - 3 tp1 Triage Assessment: 12:28 SEPSIS SCREEN: A Confirmed or Suspected Infection is tp1 Unknown, their temperature is not <96.8 or >100.9, their heart rate is not >90, their RR is not >20, it is unknown if their WBC is <4 or >12, the patient does not have new or unexplained altered mental status. SIRS or Sepsis criteria is not present. Suicide Screening: Have you had thoughts of harming yourself or others? No, Behavioral health complaint? No. The patient appears to be uncomfortable, The patient is behaving appropriately according to age, cooperative. The patient complains of pain in back and abdomen. GI:. : Patient reports incontinence. PASTRY DECORATOR: 12:26 LMP N/A - Hysterectomy tp1 Historical: - Allergies: Bees; PENICILLINS; - Home Meds: 1. estradiol 1 mg Oral tab 1 tab once daily 2. omeprazole 40 mg Oral cpDR 1 cap once daily 3. hydrocodone-acetaminophen 5-325 mg Oral tab 1 tab every 6 hours 4. bupropion HCl 300 mg Oral Tb24 1 tab once daily - PMHx: compartment syndrome - leg; GERD; - PSHx: hysterectomy; leg surgery vein; polyps removed; R-kidney stent; - Med Reconciliation:: Green Alert: The patient's med list is complete to the best of the nurse's/provider's knowledge. Medications reviewed, completed by nurse verbally from patient/family. - Immunization history,: COVID-19 vaccine: Not immunized. - Advance directive: There is no existing advanced directive. Information offered. - Family History:: mother has a history of cardiac disorder. - Social History: Smoking status (Tobacco): Patient states is a heavy tobacco smoker (>10 cigarettes a day). No barriers to communication noted, The patient speaks fluent Vincentian. Screenin:27 AUDIT 1. How often do you have a drink containing alcohol? rp1 Never (0 points). Drug Abuse Screening Test: 1. Have you used drugs other than those required for medical reasons? No (0 points), screen is complete, no risk. Abuse screen: Denies threats or abuse. Denies injuries from another. Nutritional screening: No deficits noted. Patient has no identifiable fall risk (Lindsay Scale: 0 points). Assessment: 16:56 See Triage Assessment. am7 Vital Signs: 12:26 BP 150 / 102; Pulse 72; Resp 16; Temp 98.6; Pulse Ox 100% tp1 on R/A; Weight 52.62 kg; Height 5 ft. 5 in. (165.10 cm); Pain 10/10; 14:34 BP 101 / 59; Pulse 58 MON; Resp 16 S; Pulse Ox 99% on R/A; rp1 12:26 Body Mass Index 19.30 (52.62 kg, 165.10 cm) tp1 ED Course: 12:12 Patient arrived in ED. cc4 12:21 Rosi Rogers MD is Private Physician. tp1 12:26 Triage completed. tp1 12:28 Arm band placed on right wrist. Patient has correct armband tp1 on for positive identification. 12:47 Miko Solis MD is Attending Physician. kmu 12:55 Jennyfer Flores, GUILLAUME is Primary Nurse. tp1 13:20 Labs drawn by ED staff. Inserted saline lock: 20 gauge in rp1 left antecubital area and blood collected. 13:27 Radiology: The patient went to get his/her CT at 13:27. rp1 15:07 Sofie Miller, RN is Primary Nurse. am7 16:12 Rosi Rogers MD is Referral Physician. kmu 16:56 Upon entering the room to D/C patient pt found to be am7 tearful and asking what we is going to do about her urination issue. This RN stated she will get the MD to talk. Pt then states "No I cannot wait I'm in too much pain I need to leave." Pt pulled her own IV out and refused vital signs. Pt left the ER indepedently. 16:56 Discontinued IV bleeding controlled, Pt pulled her own IV am7 out. 16:58 No procedures ordered. am7 Administered Medications: 13:20 Drug: NS 0.9% 1000 ml [sodium chloride 0.9 % intravenous rp1 solution] Route: IV; Rate: 999 mL/hr; Site: left antecubital; 14:15 Follow up: Response: No adverse reaction; No change in rp1 condition; IV Status: Completed infusion; IV Intake: 1000ml 13:27 Drug: morphine 4 mg [morphine 4 mg/mL injection syringe (1 rp1 mL)] Route: IVP; Site: left antecubital; 14:15 Follow up: Response: Pain is decreased rp1 14:24 Drug: cefTRIAXone 1 grams [ceftriaxone 1 gram solution for rp1 injection] Route: IVPB; Site: left antecubital; 15:07 Follow up: IV Status: Completed infusion; IV Intake: 50ml am7 Intake: 14:15 IV: 1000ml; Total: 1000ml. rp1 15:07 IV: 50ml; Total: 1050ml. am7 Outcome: 15:08 Report received from GUILLAUME gallegos 16:13 Discharge ordered by MD. arthur 16:58 Patient verbalized understanding of disposition am7 instructions. Patient has no functional deficits. 16:58 Patient discharged to home ambulatory. 16:58 Condition: good 16:58 Discharge instructions given to patient, Patient was instructed on discharge instructions, follow up and referral plans, medication usage, The patient demonstrated understanding of instructions, medications, Prescriptions given X 1. 16:58 see above note. 16:59 Patient left the ED. am7 Signatures: Sergio Welch RN RN tp1 Miko Solis MD MD kmu Paige, Rachel, RN RN rp1 Khadijah Garduno cc4 Sofie Miller RN RN am7 Name Value Range Interpretation Code Description Data Berta rce(s) Supporting Document(s) ID Date Data Source [id number] 05/06/2021 04:15:00 PM EDT [facility] Name Value Range Interpretation Code Description Data Berta rce(s) Supporting Document(s) Respiratory specimen severe acute respir atory syndrome coronavirus 2 (SARS-CoV-2) RNA Negative (qualifier value) [facility] This lab was ordered by [facility] rosa and reported by [facility]. ID Date Data Source [id number] 05/06/2021 05:24:00 PM EDT [facility] Performed by: VIKTORIAExpaniteluciano Line Pre sent? YCOVID Screen Result: NEGATIVENegative results should be treated as presumptive and, if inconsistent with clinical signs and symptoms or necessary for patient management, should be tested with different authorized or cleared molecular tests. Negative results do not preclude SARS-CoV-2 infection and should not be used as the sole basis for patient management decisions. Negative results should be considered in the context of a patients recent exposures, history and the presence of clinical signs and symptoms consistent with COVID-19. This test has not been FDA cleared or approved; this test has been authorized by FDA under an Emergency Use Authorization for use by laboratories certified under the Clinical Laboratory Improvement Amendments of 1988 (CLIA), 42 U.S.C. 263a, to perform moderate complexity/high complexity tests and at the Point of Care (POC), i.e., in patient care settings operating under a CLIA Certificate of Waiver, Certificate of Compliance, or Certificate of Accreditation. Factsheets for healthcare providers: https://www.fda.gov/media/173256/download Factsheets for patients: https://www.fda.gov/media/003408/download The ID NOW Instrument is a rapid molecular in vitro diagnostic test utilizing an isothermal nucleic acid amplification technology intended for the qualitative detection of nucleic acid from the SARS-CoV-2 viral RNA. THIS IS A STATE REPORTABLE COMMUNICABLE DISEASE. Manual entry verified by Cherri Barksdale 05/06/21 1723 Test Performed By: [facility] [address] [place] [address] Director: Nora Walker MD Name Value Range Interpretation Code Description Data Berta rce(s) Supporting Document(s) ID Date Data Source [id number] 05/07/2021 09:27:00 AM EDT [facility] Name: JEANNETTE VIGIL : 1985 Ag e/Sex: 36F Ordering Provider: Miko Solis MD Med Rec #: [id number] Reg Status: ADM IN Room #: 250-5A Date of Service: 05/06/21 Report Number: [id number] cc:Rosi Rogers MD; Miko Solis MD Send Report To: [id number] CT/CT Virtual IVP [id number] CT/3D Recon Independent Station Reason for exam: VIRTUAL IVP Technique: Using dedicated Siemens Syngo.Via, 3D reconstruction imaging and raw data collection from 128-slice contrast-enhanced CT, the examination was performed. FINDINGS: Lung bases clear. The liver and spleen and adrenals appear normal. There is prompt and symmetric excretion of contrast by both the right and left kidneys noted. Gallbladder appears normal. Pancreas appears normal. There isno signs of any definite pancreatic abnormalities. Nice catheter present within the bladder. Virtual pyelographic images fail to reveal significant hydronephrosis with extrarenal pelvises noted bilaterally. There is a urinary collection identifiedposterior to the bladder and that urinoma measures approximately 6 cm x 4.6 cm. It does appear as though a portion of that distal right ureter does communicate with that structure indicating that, that urinoma is likely being supplied by the right ureter. No other significant findings otherwise identified. The bladder fails to reveal any definite abnormalities. IMPRESSION: URINOMA NOTED THAT APPEARS TO BE FORMING DUE TO A COMMUNICATION WITH THE RIGHT URETER. MY SUSPICION IS THAT IS ALSO GOING TO HAVE A COMMUNICATION WITH THE BLADDER BUT NO DEFINITE COMMUNICATION COULD BE VISUALIZED ON THIS EXAMINATION. While performing the above CT exam, the following dose reduction techniques wereused: *Automated exposure control *Adjustment of the mA and/or kV according to patient size *Use of iterative reconstruction technique CT Dose in mSv: Contrast Agent in ml: Method of Administration: REPORT SIGNATURE ON FILE Reported By: Harvey Weber MD Electronically signed by: Harvey Weber MD 05/07/21 1215 Dictation Date/Time: 05/06/21517 Transcribed Date/Time: 05/07/21926 Irrigator Overhead: SANDRA Name Value Range Interpretation Code Description Data Berta rce(s) Supporting Document(s) ID Date Data Source [id number] 05/07/2021 09:27:00 AM EDT [facility] Name: JEANNETTE VIGIL : 1985 Ag e/Sex: 36F Ordering Provider: Miko Solis MD Med Rec #: [id number] Reg Status: ADM IN Room #: 250-5A Date of Service: 05/06/21 Report Number: [id number] cc:Rosi Rogers MD; Miko Solis MD Send Report To: [id number] CT/CT Virtual IVP [id number] CT/3D Recon Independent Station Reason for exam: VIRTUAL IVP Technique: Using dedicated Siemens Syngo.Via, 3D reconstruction imaging and raw data collection from 128-slice contrast-enhanced CT, the examination was performed. FINDINGS: Lung bases clear. The liver and spleen and adrenals appear normal. There is prompt and symmetric excretion of contrast by both the right and left kidneys noted. Gallbladder appears normal. Pancreas appears normal. There isno signs of any definite pancreatic abnormalities. Nice catheter present within the bladder. Virtual pyelographic images fail to reveal significant hydronephrosis with extrarenal pelvises noted bilaterally. There is a urinary collection identifiedposterior to the bladder and that urinoma measures approximately 6 cm x 4.6 cm. It does appear as though a portion of that distal right ureter does communicate with that structure indicating that, that urinoma is likely being supplied by the right ureter. No other significant findings otherwise identified. The bladder fails to reveal any definite abnormalities. IMPRESSION: URINOMA NOTED THAT APPEARS TO BE FORMING DUE TO A COMMUNICATION WITH THE RIGHT URETER. MY SUSPICION IS THAT IS ALSO GOING TO HAVE A COMMUNICATION WITH THE BLADDER BUT NO DEFINITE COMMUNICATION COULD BE VISUALIZED ON THIS EXAMINATION. While performing the above CT exam, the following dose reduction techniques wereused: *Automated exposure control *Adjustment of the mA and/or kV according to patient size *Use of iterative reconstruction technique CT Dose in mSv: 5.41 Contrast Agent in ml: Isovue 300 150CCS Method of Administration: Existing IV REPORT SIGNATURE ON FILE Reported By: Harvey Weber MD Electronically signed by: Harvey Weber MD 05/07/21 1215 Dictation Date/Time: 05/06/21517 Transcribed Date/Time: 05/07/21926 Irrigator Overhead: SANDRA Name Value Range Interpretation Code Description Data Berta rce(s) Supporting Document(s) ID Date Data Source [id number] 05/07/2021 07:08:00 AM EDT [facility] Name: JEANNETTE VIGIL : 1985 Ag e/Sex: 36F Ordering Provider: Miko Solis MD Med Rec #: [id number] Reg Status: ADM IN Room #: 250-5A Date of Service: 05/06/21 Report Number: [id number] cc:Rosi Rogers MD; Miko Solis MD Send Report To: [id number] US/US Pelvic Limited Reason for exam: HYDROMA VS FLUID COLLECTION PELVIS FINDINGS: There is a fluid collection identified posterior to the bladder measuring 6.4 x 2.6 cm. Apparently there has been a hysterectomy and thus this is likely going to be a urinoma given the history of previous ligation of the ureter. Virtual pyelogram is pending. IMPRESSION: Fluid collection is likely a urinoma. Virtual pyelogram is pending. REPORT SIGNATURE ON FILE Reported By: Harvey Weber MD Electronically signed by: Harvey Weber MD 05/07/21 0920 Dictation Date/Time: 05/06/21 1 606 Transcribed Date/Time: 05/07/21 0708 Irrigator Overhead: SANTY Name Value Range Interpretation Code Description Data Berta rce(s) Supporting Document(s) ID Date Data Source [id number] 05/06/2021 03:37:00 PM EDT [facility] Name: JEANNETTE VIGIL : 1985 Ag e/Sex: 36F Ordering Provider: Miko Solis MD Med Rec #: [id number] Reg Status: ADM IN Room #: 250-5A Date of Service: 05/06/21 Report Number: [id number] cc:Rosi Rogers MD Send Report To: [id number] CT/CT Abdomen & Pelvis No Contras Reason for exam: ABDOMINAL PAIN FINDINGS: The lung bases are clear. The liver,spleen, gallbladder, pancreas and adrenals appear normal. Extrarenal pelvices noted bilaterally. Nice catheter noted in the bladder. There is again noted to be what appears to be a hydrometra with fluid in the retroflexed uterus. Compared to one day ago the fullness in the right renal pelvis is a bit more prominent than it was with the transverse dimension now being 1.7 cm as comparedto 1.3 cm. Phleboliths in each half of the pelvis. No definitive stones seen along the course of either ureter. IMPRESSION: Hydrometra again identified. Fullness to the right renal pelvis abit more than yesterday and the right ureter, but no definitive stones seen along the course of the ureter with phleboliths in the pelvis. Appendix not visualized. No focal inflammation seen. No definitive signs of any small bowelobstruction or any signs of diverticulitis. While performing the above CT exam, the following dose reduction techniques wereused: *Automated exposure control *Adjustment of the mA and/or kV according to patient size *Use of iterative reconstruction technique CT Dose in mSv: 3.06 Contrast Agent in ml: Method of Administration: REPORT SIGNATURE ON FILE Reported By: Harvey Weber MD Electronically signed by: Harvey Weber MD 05/07/21 0919 Dictation Date/Time: 05/06/21 1301 Transcribed Date/Time: 05/06/21 1537 Irrigator Overhead: JERRICA Name Value Range Interpretation Code Description Data Berta rce(s) Supporting Document(s) ID Date Data Source [id number] 05/06/2021 12:37:00 PM EDT [facility] Name Value Range Interpretation Code Description Data Berta rce(s) Supporting Document(s) Color,Urine Yellow Normal (applies to non-numeric resu lts) [facility] Clarity,Urine Clear Normal (applies to non-numeric re sults) [facility] Specific [place],Urine 1.001-1.030 Normal (applies to non- numeric results) [facility] PH,Urine 5.0-8.0 Normal (applies to non-numeric resul ts) [facility] Protein,Urine Negative Normal (applies to non-numeric re sults) [facility] Glucose,Urine (UA) Negative Normal (applies to non-numer ic results) [facility] Ketones,Urine Negative Normal (applies to non-numeric re sults) [facility] Blood,Urine Negative Normal (applies to non-numeric resu lts) [facility] Bilirubin,Urine Negative Normal (applies to non-numeric results) [facility] Urobilinogen,Urine Norm 0.2-1 Normal (applies to non-numer ic results) [facility] Leukocyte Esterase,Urine Negative Normal (applies to non -numeric results) [facility] Nitrite,Urine Negative Normal (applies to non-numeric re sults) [facility] ID Date Data Source [id number] 05/06/2021 12:06:00 PM EDT [facility] Name Value Range Interpretation Code Description Data Berta rce(s) Supporting Document(s) Sodium 140 mmol/L 137-145 Normal (applies to non-numeric resul ts) [facility] Potassium 3.5-5.1 Normal (applies to non-numeric resul ts) [facility] Chloride 112 mmol/L 98-112 Normal (applies to non-numeric resul ts) [facility] Carbon Dioxide CO2 22.0-33.0 Normal (applies to non-numer ic results) [facility] Anion Gap 4.0-11.0 Below low normal [facility] BUN 11 mg/dL 7-17 Normal (applies to non-numeric resul ts) [facility] Creatinine 0.70-1.20 Below low normal [facility] GFR >60 Normal (applies to non-numeric results) [facility] Result based on MDRD formula. Glucose Level 89 mg/dL 74-99 Normal (applies to non-numeric re sults) [facility] The reference range is only applicable w hen fasting. Calcium-Uncorrected 8.4-10.2 Normal (applies to non-nume meghana results) [facility] Corrected Calcium 8.4-10.2 Normal (applies to non-numeri c results) [facility] Bilirubin,Total 0.2-1.3 Below low normal [facility] SGOT(AST) 8 U/L 14-36 Below low normal [facility] SGPT(ALT) 17 U/L 9-52 Normal (applies to non-numeric resul ts) [facility] Alkaline Phosphatase 63 U/L 38-126 Normal (applies to non-num brii results) [facility] can increase Alkaline Phosp le vels up to 2 times the normal adult value. Normal values for children and adolescents are 2 to 3 times the normal adult value. Total Protein 6.3-8.2 Normal (applies to non-numeric re sults) [facility] Albumin 3.5-5.0 Below low normal [facility] ID Date Data Source [id number] 05/06/2021 11:53:00 AM EDT [facility] Name Value Range Interpretation Code Description Data Berta rce(s) Supporting Document(s) White Blood Count 4.8-10.8 Normal (applies to non-numeri c results) [facility] Red Blood Count 3.68-5.22 Normal (applies to non-numeric results) [facility] Hemoglobin 11.2-15.7 Normal (applies to non-numeric resul ts) [facility] Hematocrit 34.1-44.9 Normal (applies to non-numeric resul ts) [facility] Mean Corpuscular Volume 81-99 Below low normal [facility] Mean Corpuscular Hemoglobin 27.0-33.0 Below low normal [facility] Mean Corpuscular HGB Conc 32.0-36.0 Normal (applies to no n-numeric results) [facility] Red Cell Distribution Width 11.5-14.5 Above high normal [facility] Platelet Count 327 X10 3/uL 130-450 Normal (applies to non-numeric results) [facility] Mean Platelet Volume 9.5-12.7 Normal (applies to non-num brii results) [facility] Imm Grans% (AUTO) 0 % 0-2 Normal (applies to non-numeri c results) [facility] Neutrophils % (AUTO) 40 % 40-75 Normal (applies to non-num brii results) [facility] Lymphocytes % (AUTO) 47 % 21-46 Above high normal [facility] Monocytes % (AUTO) 8 % 5-12 Normal (applies to non-numer ic results) [facility] Eosinophils % (AUTO) 3 % 1-5 Normal (applies to non-num brii results) [facility] Basophils % (AUTO) 2 % 0-1 Above high normal [facility] Imm Grans# (AUTO) 0.0-0.5 Normal (applies to non-numeri c results) [facility] Neutrophils # (AUTO) 1.5-8.1 Normal (applies to non-num brii results) [facility] Lymphocytes # (AUTO) 1.0-3.1 Above high normal [facility] Monocytes # (AUTO) 0.2-1.3 Normal (applies to non-numer ic results) [facility] Eosinophils# (AUTO) 0.0-0.5 Normal (applies to non-nume meghana results) [facility] Basophils # (AUTO) 0.0-0.1 Normal (applies to non-numer ic results) [facility] ID Date Data Source [id number] 05/05/2021 04:40:00 PM EDT [facility] Name Value Range Interpretation Code Description Data Berta rce(s) Supporting Document(s) White Blood Count 4.8-10.8 Normal (applies to non-numeri c results) [facility] Red Blood Count 3.68-5.22 Normal (applies to non-numeric results) [facility] Hemoglobin 11.2-15.7 Normal (applies to non-numeric resul ts) [facility] Hematocrit 34.1-44.9 Normal (applies to non-numeric resul ts) [facility] Mean Corpuscular Volume 81-99 Below low normal [facility] Mean Corpuscular Hemoglobin 27.0-33.0 Normal (appli es to non-numeric results) [facility] Mean Corpuscular HGB Conc 32.0-36.0 Normal (applies to no n-numeric results) [facility] Red Cell Distribution Width 11.5-14.5 Above high normal [facility] Platelet Count 348 X10 3/uL 130-450 Normal (applies to non-numeric results) [facility] Mean Platelet Volume 9.5-12.7 Normal (applies to non-num brii results) [facility] Imm Grans% (AUTO) 0 % 0-2 Normal (applies to non-numeri c results) [facility] Neutrophils % (AUTO) 36 % 40-75 Below low normal [facility] Lymphocytes % (AUTO) 51 % 21-46 Above high normal [facility] Monocytes % (AUTO) 7 % 5-12 Normal (applies to non-numer ic results) [facility] Eosinophils % (AUTO) 3 % 1-5 Normal (applies to non-num brii results) [facility] Basophils % (AUTO) 2 % 0-1 Above high normal [facility] Imm Grans# (AUTO) 0.0-0.5 Normal (applies to non-numeri c results) [facility] Neutrophils # (AUTO) 1.5-8.1 Normal (applies to non-num brii results) [facility] Lymphocytes # (AUTO) 1.0-3.1 Above high normal [facility] Monocytes # (AUTO) 0.2-1.3 Normal (applies to non-numer ic results) [facility] Eosinophils# (AUTO) 0.0-0.5 Normal (applies to non-nume meghana results) [facility] Basophils # (AUTO) 0.0-0.1 Above high normal [facility] Slide Reviewed By Normal (applies to non-numeri c results) [facility] Slide has been reviewed and findings con firmed by a technologist/substation maintenance technician. ID Date Data Source [id number] 05/05/2021 02:16:00 PM EDT [facility] Name Value Range Interpretation Code Description Data Berta rce(s) Supporting Document(s) Sodium 139 mmol/L 137-145 Normal (applies to non-numeric resul ts) [facility] Potassium 3.5-5.1 Normal (applies to non-numeric resul ts) [facility] Chloride 111 mmol/L 98-112 Normal (applies to non-numeric resul ts) [facility] Carbon Dioxide CO2 22.0-33.0 Normal (applies to non-numer ic results) [facility] Anion Gap 4.0-11.0 Below low normal [facility] BUN 10 mg/dL 7-17 Normal (applies to non-numeric resul ts) [facility] Creatinine 0.70-1.20 Normal (applies to non-numeric resul ts) [facility] GFR 85 mL/min >60 Normal (applies to non-numeric resul ts) [facility] Result based on MDRD formula. Glucose Level 87 mg/dL 74-99 Normal (applies to non-numeric re sults) [facility] The reference range is only applicable w hen fasting. Calcium-Uncorrected 8.4-10.2 Below low normal [facility] Corrected Calcium 8.4-10.2 Normal (applies to non-numeri c results) [facility] Bilirubin,Total 0.2-1.3 Below low normal [facility] SGOT(AST) 13 U/L 14-36 Below low normal [facility] SGPT(ALT) 18 U/L 9-52 Normal (applies to non-numeric resul ts) [facility] Alkaline Phosphatase 70 U/L 38-126 Normal (applies to non-num brii results) [facility] can increase Alkaline Phosp le vels up to 2 times the normal adult value. Normal values for children and adolescents are 2 to 3 times the normal adult value. Total Protein 6.3-8.2 Normal (applies to non-numeric re sults) [facility] Albumin 3.5-5.0 Normal (applies to non-numeric resul ts) [facility] ID Date Data Source [id number] 05/05/2021 02:16:00 PM EDT [facility] Name Value Range Interpretation Code Description Data Berta rce(s) Supporting Document(s) C-Reactive Protein,Wide Range <3.00 Normal (applies t o non-numeric results) [facility] ID Date Data Source [id number] 05/05/2021 01:58:00 PM EDT [facility] Name Value Range Interpretation Code Description Data Berta rce(s) Supporting Document(s) Beta HCG Screen,Qualitative Negative Normal (appli es to non-numeric results) [facility] ID Date Data Source [id number] 05/06/2021 08:16:00 AM EDT [facility] Name: JEANNETTE VIGIL : 1985 Ag e/Sex: 36F Ordering Provider: Miko Solis MD Med Rec #: [id number] Reg Status: [facility] ER Room #: Date of Service: 05/05/21 Report Number: [id number] cc:Rosi Rogers MD Send Report To: [id number] CT/CT Abdomen & Pelvis No Contras Reason for exam: R FLANK PAIN, STENT FINDINGS: Lung bases are clear. The liver and spleen appear normal. The adrenals appear normal. The right kidney demonstrates a right-sided hydronephrosis with a transverse dimension of the right renal pelvis measuring 1.3 cm and there is fullness to that right ureter. There is a moderately distended bladder identified. There is no definite signs of a stone along the course of that right ureter. There is suggestion of a hydrometra with fluid in the prerectal space that has a transverse dimension of 6.2 cm and AP dimension of 2.8 cm and what appears to be a height of 4.9 cm. Correlation with ultrasound may be helpful for further evaluation. IVORY CARVER consultation could also be performed to see if that could possibly be a distended fluid filled uterus. There are some fluid filled bowel loops with that region as well. Phleboliths identified in each half of the pelvis. No evidence for any focal inflammatory process identified. No signs of any free fluid in the upper abdomen. The appendix is not visualized in its entirety but there does appear to be portions of the appendix that are visualized and appear normal. IMPRESSION: Fullness to the right renal pelvis and ureter with no definitive stones seen. There are findings that raise suspicion for hydrometra. Follow upGYN consultation or ultrasound may be helpful for that. No other definite abnormalities. Consider the possibility of a recently passed stone. While performing the above CT exam, the following dose reduction techniques wereused: *Automated exposure control *Adjustment of the mA and/or kV according to patient size *Use of iterative reconstruction technique CT Dose in mSv: 3.37 Contrast Agent in ml: Method of Administration: REPORT SIGNATURE ON FILE Reported By: Harvey Weber MD Electronically signed by: Harvey Weber MD 05/06/21 3797 Dictation Date/Time: 05/05/21 1540 Transcribed Date/Time: 05/06/21 0816 Irrigator Overhead: CARMEN Name Value Range Interpretation Code Description Data Berta rce(s) Supporting Document(s) ID Date Data Source [id number] 04/19/2021 11:38:00 AM EDT [facility] PLEASE FAX RESULTS TO ALIE PETERSON [employer] Name Value Range Interpretation Code Description Data Berat rce(s) Supporting Document(s) Urine Culture [facility] ID Date Data Source [id number] 04/19/2021 11:38:00 AM EDT [facility] PLEASE FAX RESULTS TO ALIE PETERSON Name Value Range Interpretation Code Description Data Berta rce(s) Supporting Document(s) Ampicillin Susceptible. Indicates for microbiol ogy susceptibilities only. [facility] Vancomycin 2 Susceptible. Indicates for m icrobiology susceptibilities only. [facility] Gentamicin 500 Susceptible. Ind icates for microbiology susceptibilities only. [facility] Daptomycin 2 Susceptible. Indicates for m icrobiology susceptibilities only. [facility] Linezolid 2 Susceptible. Indicates for microbiol ogy susceptibilities only. [facility] Nitrofurantoin Susceptible. Ind icates for microbiology susceptibilities only. [facility] ID Date Data Source [id number] 04/17/2021 01:54:00 PM EDT [facility] Name Value Range Interpretation Code Description Data Berta rce(s) Supporting Document(s) Color,Urine Yellow Normal (applies to non-numeric resu lts) [facility] Clarity,Urine Clear Banerjee [facility] Specific [place],Urine 1.001-1.030 Normal (applies to non- numeric results) [facility] PH,Urine 5.0-8.0 Normal (applies to non-numeric resul ts) [facility] Protein,Urine Negative [facility] Glucose,Urine (UA) Negative Normal (applies to non-numer ic results) [facility] Ketones,Urine Negative Normal (applies to non-numeric re sults) [facility] Blood,Urine Negative [facility] p[facility] Bilirubin,Urine Negative Normal (applies to non-numeric results) [facility] Urobilinogen,Urine Norm 0.2-1 Normal (applies to non-numer ic results) [facility] Leukocyte Esterase,Urine Negative [facility] Nitrite,Urine Negative [facility] WBC,URINE 0-10 [facility] [place] RBC,U[facility] 0-[facility] [place] Hyaline Casts,Ur None Seen Normal (applies to non-numeric results) [facility] Bacteria,Urine None Seen [facility] Epithelial Cell,Ur None-Few [facility] ID Date Data Source [id number] 03/23/2021 10:59:00 AM EDT [facility] Name: JEANNETTE VIGIL [facility] Rec #: [id number] 4 : 1985 Age/Sex: 36F Date of Service: 03/23/21 DISPOSITION SUMMARY Discharge Summary [facility] Name:[facility]ann[facility] Emergency Department Age:36 yrs Sex:Female :1985 Arrival:03/23/2021 10:59 Departure Date03/23/2021 Departure Time17:26 Private MD:Rosi Rogers MD Outcome: Discharge Location: Home/Self Care Condition: Good Chief Complaint: Post Surgical Pain Diagnosis: - Flank pain Prescriptions: Pyridium 100 mg Oral Tablet - take 1 tablet by ORAL route 3 times per day for 3 days after meals; 9 tablet Follow up: Rosi Rogers MD Custom Notes: You were seen in the Emergency Department for flank pain, abdominal pain. All of your labs are reassuring without any abnormalities of your kidney function or white blood cells. Your urine does not show any signs of acute infection. A CT of your abdomen and pelvis was performed which was normal and did not show any complication of the stent or signs of infection.
I spoke with urology at [facility] who recommends adding pyridium 100 mg three times daily after meals to try and help with your symptoms. Continue to take Tylenol 650 mg and Ibuprofen 600 mg every 6hours as needed for pain. Continue to drink plentyof fluids to ensure you stay well hydrated.
Follow up with your PCP in the next week. Call your urologist to discuss our workup today. Return to the Emergency Department if you experience anynew or concerning symptoms such as worsening pain, fever, vomiting. Attending Physician: Shirley Gloria MD Private MD: Rosi Rogers MD Mid Level Provider: Followup Physician: Rosi Rogers MD Orders: Cbc With Auto Differential, COMMET, UA., Blood Culture - Venous, Beta Hcg,Qualitative, Urinalysis Auto w/Microscopy, Collect Urine - Clean Catch, Ct Abdomen & Pelvis with Con, LR, morphine, Urine Culture, Acetaminophen, morphine, ketorolac, Saline Lock Discharge Instruction: Discharge Summary Sheet, Medication Reconciliation, Fax Visit Summary for Rosi Rogers MD Name Value Range Interpretation Code Description Data Berta rce(s) Supporting Document(s) ID Date Data Source [id number] 03/23/2021 10:59:00 AM EDT [facility] Name: JEANNETTE VIGIL [facility] Rec #: [id number] 4 : 1985 Age/Sex: 36F Date of Service: 03/23/21 PHYSICIAN CHART Physician Documentation [facility] Name: Jeannette Vigil Age: 36 yrs Sex: Female : 1985 Arrival Date: 03/23/2021 Time: 10:59 Bed 13 Private MD: Rosi Rogers ED Physician FaizanShirley HPI: 03/23 11:15 This 36 yrs old Female presents to ER via Walk-In scw with complaints of Post Surgical Pain. 11:15 Patient is a 36 yo female with a PMH significant for recent scw hysterectomy complicated by ureteral injury (right) s/p stent placement presenting with right flank pain. Patient states that for about 1 week she has had worsening right flank, right upper quadrant abdominal pain. She reports associated urinary incontinence and chills. Last week she had an outpatient follow up with the urologist where they performed a cystoscopy and replaced the right stent for continued healing of her right ureter. She recently completed antibiotics for a UTI, her last dose of ciprofloxacin was yesterday. She reports nausea but no vomiting. She is able to void spontaneously and feels she is able to empty her bladder completely. She denies fever, chest pain, shortness of breath. . PASTRY DECORATOR: 11:21 LMP N/A - Hysterectomy md1 Historical: - Allergies: Bees; PENICILLINS; - Home Meds: 1. omeprazole 40 mg Oral cpDR 1 cap once daily 2. tamsulosin 0.4 mg oral cap 1 cap once daily 3. oxybutynin chloride 10 mg Oral tr24 1 tab once daily 4. estradiol 1 mg Oral tab 1 tab once daily - PMHx: compartment syndrome - leg; GERD; - PSHx: hysterectomy; leg surgery vein; polyps removed; R-kidney stent; - Med Reconciliation:: Green Alert: The patient's med list is complete to the best of the nurse's/provider's knowledge. Medications reviewed, completed by nurse verbally from patient/family. - Immunization history,: Flu vaccine is not up to date. COVID-19 vaccine: Not immunized. - Advance directive: There is no existing advanced directive. Information offered. - Family History:: mother has a history of cardiac disorder, Father is healthy. - Social History: Smoking status (Tobacco): Patient states is a light tobacco smoker (<10 cigarettes a day). Preferred Language: Vincentian. ROS: 11:15 Constitutional: Positive for chills, Negative for fever. scw Head Negative for Injury. ENT: Negative for acute changes. Eyes: Negative for acute changes. Neck: Negative for injury or acute deformity, tenderness. Cardiovascular: Negative for chest pain, palpitations. Respiratory: Negative for cough, shortness of breath. Abdomen/GI: Positive for abdominal pain, nausea, Negative for vomiting, diarrhea, constipation. : Positive for flank pain, bladder incontinence, Negative for hematuria, burning with urination, difficulty urinating. MS/extremity: Negative for acute changes, injury or acute deformit y. Skin: Negative for rash. Neuro: Negative for altered mental status, bowel incontinence, headache, numbness. Exam: 11:15 Constitutional: The patient appears to have no acute scw distress, appears afebrile. 11:15 Head/face: Exam is negative for nuchal rigidity, Noted is 11:15 Eyes: Exam is negative for edema, erythema. 11:15 ENT: Exam is negative for abnormal voice, Mouth: no acute changes, Oral mucosa: moist. 11:15 Neck: Exam negative for pain with movement or limited range of motion. 11:15 Cardiovascular: Rate: normal, Rhythm: regular, Pulses: Pulses are 2+ in right radial artery, right posterior tibial artery, left radial artery and left posterior tibial artery. Heart sounds: normal, Edema: is not appreciated. 11:15 Respiratory: Exam negative for abnormalities, accessory muscles, chest tenderness, decreased breath sounds. 11:15 Abdomen/GI: Exam negative for abnormal bowel sounds, rebound tenderness, Bowel sounds: normal, Palpation: soft, mild abdominal tenderness, RUQ, RLQ. 11:15 : CVA tenderness, that is mild, on the right. 11:15 Skin: Exam negative for rash. 11:15 Neuro: Exam negative for abnormalities, focal neuro deficits, motor deficits, sensory deficits, weakness. Vital Signs: 11:21 BP 147 / 100; Pulse 67; Resp 18; Temp 100.0(TE); Pulse Ox md1 98% on R/A; Weight 52.16 kg; Height 5 ft. 5 in. (165.10 cm); Pain 4/10; 13:05 BP 143 / 91; Pulse 74; Resp 20; Pulse Ox 98% on R/A; rc5 13:53 BP 112 / 72; Pulse 60; Resp 20; Pulse Ox 97% on R/A; Pain rc5 3/10; 16:02 BP 125 / 79; Pulse 62; Resp 20; Pulse Ox 97% on R/A; rc5 16:15 BP 127 / 79; Pulse 58; Resp 20; Pulse Ox 100% on R/A; rc5 11:21 Body Mass Index 19.14 (52.16 kg, 165.10 cm) md1 MDM: 12:23 Patient medically screened. utw 14:30 Differential diagnosis: Patient is a 36 yo female scw presenting with right sided flank pain and abdominal pain. She has normal vital signs and is in no acute distress however appears uncomfortable. On exam she has right CVA tenderness and right sided abdominal tenderness without rebound or guarding. Given her history of stent placement on the right and recent treatment for UTI, we will evaluate for any underlying abscess formation, hydronephrosis. Other considerations include stent dislodgement, persistent UTI, acute kidney injury, appendicitis. Low suspicion for ovarian torsion given her recent stent placement over the area of pain. Data reviewed: vital signs, nurses notes, diagnostic data from outside facility. Medication response: The patient's symptoms have improved. Physician consultation: I contacted urology at [facility] where patient has her urological care once her lab results and CT abdomen and pelvis resulted without any signs of acute kidney injury, UTI, abscess formation, or stent dislodgement. I discussed these results over the phone and urology recommended adding pyridium to patient's medication regimen. Agreed that this is unlikely to be an acute infectious process or complication given reassuring workup and her symptoms are more likely related to sten t pain. I discussed all of the results and plan with patient and her . Patient reported improv ement of pain with treatment in the ED. Pyridium given upon discharge- she is already on oxybutinin, flomax, tylenol, motrin. Return precautions discussed and her and her demonstrated understanding. . 03/23 11:21 Order name: Cbc With Auto Differential; Complete Time: 12:36jtv 03/23 11:21 Order name: COMMET; Complete Time: 13:05 jtv 03/23 11:21 Order name: UA.; Complete Time: 14:39 v 03/23 11:21 Order name: Blood Culture - Venous t 03/23 12:50 Order name: Beta Hcg,Qualitative; Complete Time: 14:39 utw 03/23 13:13 Order name: Urinalysis Auto w/Microscopy; Complete Time: EDMS 14:39 03/23 11:21 Order name: Collect Urine - Clean Catch; Complete Time: jtv 12:47 03/23 12:50 Order name: Ct Abdomen & Pelvis with Con scw 03/23 13:13 Order name: Urine Culture [facility] 03/23 11:21 Order name: Saline Lock; Complete Time: 12:40 jtv Dispensed Medications: 13:23 Drug: LR 1000 ml [lactated Ringers intrave nous solution] rc5 Route: IV; Rate: bolus; Site: right antecubital; 17:21 Follow up: IV Status: Completed infusion; IV Intake: 1000ml tlf 13:23 Drug: morphine 4 mg [morphine 4 mg/mL injection syringe (1 rc5 mL)] Route: IVP; Site: right antecubital; 13:53 Follow up: Response: Pain is decreased rc5 15:46 Drug: Acetaminophen 975 mg [acetaminophen 325 mg tablet (3 rc5 tabs)] Route: PO; 15:46 Drug: morphine 4 mg [morphine 4 mg/mL injection syringe (1 rc5 mL)] Route: IVP; Site: right antecubital; 16:15 Follow up: Response: Pain is decreased rc5 15:46 Drug: ketorolac 15 mg [ketorolac 30 mg/mL (1 mL) injection rc5 solution (0.5 mL)] Route: IVP; Site: right antecubital; 16:15 Follow up: Response: Pain is decreased rc5 Disposition Summary: 03/23/21 17:08 Discharge Ordered Location: Home/Self Care scw Problem: an acute exacerbation scw Symptoms: have improved scw Condition: Good scw Diagnosis - Flank pain scw Followup: scw - With: Rosi Rogers MD - When: 5 - 6 days - Reason: Recheck today's complaints Discharge Instructions: - Discharge Summary Sheet scw Forms: - Medication Reconciliation scw Prescriptions: - Pyridium 100 mg Oral Tablet - take 1 tablet by ORAL route 3 times per day for 3 scw days after meals; 9 tablet; Refills: 0, Product Selection Permitted Signatures: Dispatcher [employer] Gerri Roque MD MD jtv Chartier, Michelle, RN RN md1 Alexandrea Hoff RN RN rc5 Shirley Gloria MD MD utJahaira Mitchell RN tlf Name Value Range Interpretation Code Description Data Berta rce(s) Supporting Document(s) ID Date Data Source [id number] 03/23/2021 10:59:00 AM EDT [facility] Name: JEANNETTE VIGIL [facility] Rec #: [id number] 4 : 1985 Age/Sex: 36F Date of Service: 03/23/21 NURSE CHART Nurse's Notes [facility] Age: 36 yrs Sex: Female : 1985 Arrival Date: 03/23/2021 Time: 10:59 Bed 13 Private MD: Rosi Rogers Diagnosis: Flank pain Presentation: 03/23 11:15 Acuity: Urgent - 3 md1 11:18 Transition of care: patient was not received from another co1 setting of care. Presenting complaint: Patient states - that she had a bladder stent replaced on . States that she had chills during the night and she is having a lot of pain and is incontinent of urine at times. Have you travelled in the last 30 days? No. Have you had contact with an individual with a confirmed diagnosis of Ebola or COVID-19? No. 11:18 Method Of Arrival: Walk-In md1 Triage Assessment: 11:19 SEPSIS SCREEN: A Confirmed or Suspected Infection is md1 Unknown, SIRS or Sepsis criteria is not present. Suicide Screening: Have you had thoughts of harming yourself or others? No. The patient appears to have some mild discomfort, The patient is cooperative. Patient states the pain is currently a 4 / 10 The patient reports his/her pain at its worst was 10 out of 10 on a 1-10 pain scale. The patient complains of pain in pelvis. Patient denies any radiating pain. The patient states the pain began 4days ago. The quality of the pain is described as Sore The pain is described as intermittent. Neuro: Level of Consciousness is awake, alert, obeys commands. Respiratory: Airway is patent. Respiratory effort is even, Respiratory pattern is regular. GI: T he patient reports nausea. : Patient reports incontinence. Derm: Skin is pale. PASTRY DECORATOR: 11:21 LMP N/A - Hysterectomy md1 Historical: - Allergies: Bees; PENICILLINS; - Home Meds: 1. omeprazole 40 mg Oral cpDR 1 cap once daily 2. tamsulosin 0.4 mg oral cap 1 cap once daily 3. oxybutynin chloride 10 mg Oral tr24 1 tab once daily 4. estradiol 1 mg Oral tab 1 tab once daily - PMHx: compartment syndrome - leg; GERD; - PSHx: hy sterectomy; leg surgery vein; polyps removed; R-kidney stent; - Med Reconciliation:: Green Alert: The patient's med list is complete to the best of the nurse's/provider's knowledge. Medications reviewed, completed by nurse verbally from patient/family. - Immunization history,: Flu vaccine is not up to date. COVID-19 vaccine: Not immunized. - Advance directive: There is no existing advanced directive. Information offered. - Family History:: mother has a history of cardiac disorder, Father is healthy. - Social History: Smoking status (Tobacco): Patient states is a light tobacco smoker (<10 cigarettes a day). Preferred Language: Vincentian. Screenin:25 AUDIT 1. How often do you have a drink containing alcohol? md1 Never (0 points). Drug Abuse Screening Test: 1. Have you used drugs other than those required for medical reasons? No (0 points), screen is complete, no risk. Abuse screen: Denies threats or abuse. Nutritional screening: No deficits noted. Patient has no identifiable fall risk (Lindsay Scale: 0 points). Assessment: 12:40 See Triage Assessment. The patient appears to have some jc3 mild discomfort, The patient is behaving appropriately according to age, cooperative. Neuro: No Neuro Deficit is noted. GI: Abdomen is non- distended Bowel sounds present X 4 quads. On palpation, the abdomen is soft, X 4 quads Abd is tender to palpation in right lower quadrant The patient reports lower abdominal pain, nausea. : Patient reports pain in right flank(s), Patient denies burning with urination, pain with urination. Vital Signs: 11:21 BP 147 / 100; Pulse 67; Resp 18; Temp 100.0(TE); Pulse Ox md1 98% on R/A; Weight 52.16 kg; Height 5 ft. 5 in. (165.10 cm); Pain 4/10; 13:05 BP 143 / 91; Pulse 74; Resp 20; Pulse Ox 98% on R/A; rc5 13:53 BP 112 / 72; Pulse 60; Resp 20; Pulse Ox 97% on R/A; Pain rc5 3/10; 16:02 BP 125 / 79; Pulse 62; Resp 20; Pulse Ox 97% on R/A; rc5 16:15 BP 127 / 79; Pulse 58; Resp 20; Pulse Ox 100% on R/A; rc5 11:21 Body Mass Index 19.14 (52.16 kg, 165.10 cm) md1 ED Course: 11:00 Patient arrived in ED. mlr 11:15 Triage completed. md1 11:18 Rosi Rogers MD is Private Physician. md1 11:21 Arm band placed on right wrist. Patient has correct armband md1 on for positive identification. 11:32 Shirley Gloria MD is Attending Physician. scw 12:30 Labs drawn by ED staff. First set of blood cultures drawn jc3 Second set of blood cultures drawn by Lab staff. 12:40 Inserted saline lock: 20 gauge in right antecubital area. jc3 12:47 Urine collected. Clean catch specimen. jc3 12:54 Alexandrea Hoff, RN is Primary Nurse. rc5 13:27 Radiology: The patient went to get his/her CT at 13:27. rc5 13:27 Ct Abdomen & Pelvis with Con Sent. rc5 17:07 Rosi Rogers MD is Referral Physician. scw 17:21 No procedures ordered. tlf Administered Medications: 13:23 Drug: LR 1000 ml [lactated Ringers intravenous solution] rc5 Route: IV; Rate: bolus; Site: right antecubital; 17:21 Follow up: IV Status: Completed infusion; IV Intake: 1000ml tlf 13:23 Drug: morphine 4 mg [morphine 4 mg/mL injection syringe (1 rc5 mL)] Route: IVP; Site: right antecubital; 13:53 Follow up: Response: Pain is decreased rc5 15:46 Drug: Acetaminophen 975 mg [acetaminophen 325 mg tablet (3 rc5 tabs)] Route: PO; 15:46 Drug: morphine 4 mg [morphine 4 mg/mL injection syringe (1 rc5 mL)] Route: IVP; Site: right antecubital; 16:15 Follow up: Response: Pain is decreased rc5 15:46 Drug: ketorolac 15 mg [ketorolac 30 mg/mL (1 mL) injection rc5 solution (0.5 mL)] Route: IVP; Site: right antecubital; 16:15 Follow up: Response: Pain is decreased rc5 Intake: 17:21 IV: 1000ml; Total: 1000ml. tlf Outcome: 17:08 Discharge ordered by MD. jimenez 17:21 Reassessment: Visual reassessment shows no worsening tlf symptoms, vital signs not warranted. 17:21 Patient verbalized understanding of disposition instructions. Patient has no functional deficits. 17:21 Patient discharged Discontinued lock intact, bleeding controlled, pressure dressing applied, No redness/swelling at site. 17:22 Patient discharged to home ambulatory, with significant tlf other. 17:22 Condition: improved 17:22 Discharge instructions given to patient, Patient was instructed on discharge instructions, follow up and referral plans, medication usage, no drinking with medication, no driving heavy equipment, The patient demonstrated understanding of instructions, medications, Prescriptions given X 1. 17:22 Vitals are Complete in accordance with Emergency Department Policy. 17:26 Patient left the ED. tlf Signatures: Vandana Hernandez RN RN jc3 Jamilah Braun RN RN md1 Jahaira Doyle RN RN tlf Alexandrea Hoff RN RN rc5 Jamilah Mario Samantha, MD MD scw Name Value Range Interpretation Code Description Data Berta rce(s) Supporting Document(s) ID Date Data Source [id number] 03/25/2021 09:15:00 AM EDT [facility] Hospital Name Value Range Interpretation Code Description Data Berta rce(s) Supporting Document(s) Urine Culture [facility] ID Date Data Source [id number] 03/24/2021 08:37:00 AM EDT [facility] Hospital Name: JEANNETTE VIGIL : 1985 Ag e/Sex: 36F Ordering Provider: Shirley Gloria MD Med Rec #: [id number] Reg Status: [facility] Room #: Date of Service: 03/23/21 Report Number: [id number] cc:Rosi Rogers MD Send Report To: [id number] CT/CT Abdomen & Pelvis w Con Reason for exam: ABDOMINAL PAIN Prior examination: 01/10/20 FINDINGS: Evaluation of the lung bases demonstrates bibasilar subsegmental atelectasis and/or pleural parenchymal scarring. 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 The liver, spleen, adrenal glands, kidneys, pancreas, and gallbladder are unremarkable. There is now a right ureteral stent in place. There is no intra or retroperitoneal adenopathy by CT size criteria. Evaluation of the pelvis does not demonstrate free fluid. Evaluation of the partially distended, unopacified urinary bladder does not demonstrate a discretebladder mass. Evaluation of the unopacified bowel does not demonstrate CT evidence of obstruction or focal inflammatory bowel disease. Incomplete distension limits evaluation especially for wall thickness. Marked retained feces limits evaluation of the colon. The appendix is not definitely visualized but there isno CT evidence of inflammatory bowel disease in the right lower quadrant. The stomach and distal esophagus are not distended limiting evaluation. Evaluation of the visualized skeleton demonstrates degenerative disk disease especially at L4-L5 with interspace narrowing, endplate sclerosis, and extensivesclerosis of the anterior aspects of the L4 and L5 vertebral bodies. IMPRESSION: No CT evidence of inflammatory bowel disease. While performing the above CT exam, the following dose reduction techniques wereused: *Automated exposure control *Adjustment of the mA and/or kV according to patient size *Use of iterative reconstruction technique CT Dose in mSv: 3.1 Contrast Agent in ml: Isovue 300 100 Method of Administration: Intraveneous REPORT SIGNATURE ON FILE Reported By: Antonio Arias MD Electronically signed by: Antonio Arias MD 03/24/21 1144 Dictation Date/Time: 03/23/21 1435 Transcribed Date/Time: 03/24/21 0837 Irrigator Overhead: CAR[facility] Name Value Range Interpretation Code Description Data Berta rce(s) Supporting Document(s) ID Date Data Source [id number] 03/23/2021 01:13:00 PM EDT [facility] Name Value Range Interpretation Code Description Data Berta rce(s) Supporting Document(s) Color,Urine Yellow Normal (applies to non-numeric resu lts) [facility] Clarity,Urine Clear Normal (applies to non-numeric re sults) [facility] Specific [place],Urine 1.001-1.030 Normal (applies to non- numeric results) [facility] PH,Urine 5.0-8.0 [facility] Protein,Urine Negative Normal (applies to non-numeric re sults) [facility] Glucose,Urine (UA) Negative Normal (applies to non-numer ic results) [facility] Ketones,Urine Negative Normal (applies to non-numeric re sults) [facility] Blood,Urine Negative [facility] p[facility] Bilirubin,Urine Negative Normal (applies to non-numeric results) [facility] Urobilinogen,Urine Norm 0.2-1 Normal (applies to non-numer ic results) [facility] Leukocyte Esterase,Urine Negative [facility] Nitrite,Urine Negative Normal (applies to non-numeric re sults) [facility] ID Date Data Source [id number] 03/23/2021 01:13:00 PM EDT [facility] Name Value Range Interpretation Code Description Data Berta rce(s) Supporting Document(s) RBC,Auto Urine 0-2 [facility]er[facility] WBC Urine Auto 0-10 Normal (applies to non-numeric r esults) [facility] Casts,Hyaline,Urine Auto 0-2 Normal (applies to non -numeric results) [facility] Bacteria Urine Auto None Seen Normal (applies to non-nume meghana results) [facility] Epithelial Cell Ur Auto None-Few Normal (applies to non- numeric results) [facility] ID Date Data Source [id number] 03/28/2021 12:16:00 PM EDT [facility] Name Value Range Interpretation Code Description Data Berta rce(s) Supporting Document(s) Blood Culture-Venous [facility] ID Date Data Source [id number] 03/28/2021 12:16:00 PM EDT [facility] Name Value Range Interpretation Code Description Data Berta rce(s) Supporting Document(s) Blood Culture-Venous [facility] ID Date Data Source [id number] 03/23/2021 01:12:00 PM EDT [facility] Name Value Range Interpretation Code Description Data Berta rce(s) Supporting Document(s) Beta HCG Screen,Qualitative Negative Normal (appli es to non-numeric results) [facility] ID Date Data Source [id number] 03/23/2021 12:52:00 PM EDT [facility] Name Value Range Interpretation Code Description Data Berta rce(s) Supporting Document(s) Sodium 142 mmol/L 137-145 Normal (applies to non-numeric resul ts) [facility] Potassium 3.5-5.1 Normal (applies to non-numeric resul ts) [facility] Chloride 110 mmol/L 98-112 Normal (applies to non-numeric resul ts) [facility] Carbon Dioxide CO2 22.0-33.0 Normal (applies to non-numer ic results) [facility] Anion Gap 4.0-11.0 Normal (applies to non-numeric resul ts) [facility] BUN 12 mg/dL 7-17 Normal (applies to non-numeric resul ts) [facility] Creatinine 0.70-1.20 Normal (applies to non-numeric resul ts) [facility] GFR 88 mL/min >60 Normal (applies to non-numeric resul ts) [facility] Result based on MDRD formula. Glucose Level 93 mg/dL 74-99 Normal (applies to non-numeric re sults) [facility] The reference range is only applicable w hen fasting. Calcium-Uncorrected 8.4-10.2 Normal (applies to non-nume meghana results) [facility] Corrected Calcium 8.4-10.2 Normal (applies to non-numeri c results) [facility] Bilirubin,Total 0.2-1.3 Below low normal [facility] SGOT(AST) 13 U/L 14-36 Below low normal [facility] SGPT(ALT) 22 U/L 9-52 Normal (applies to non-numeric resul ts) [facility] Alkaline Phosphatase 70 U/L 38-126 Normal (applies to non-num brii results) [facility] can increase Alkaline Phosp le vels up to 2 times the normal adult value. Normal values for children and adolescents are 2 to 3 times the normal adult value. Total Protein 6.3-8.2 Normal (applies to non-numeric re sults) [facility] Albumin 3.5-5.0 Normal (applies to non-numeric resul ts) [facility] ID Date Data Source [id number] 03/23/2021 12:28:00 PM EDT [facility] Name Value Range Interpretation Code Description Data Berta rce(s) Supporting Document(s) White Blood Count 4.8-10.8 Normal (applies to non-numeri c results) [facility] Red Blood Count 3.68-5.22 Normal (applies to non-numeric results) [facility] Hemoglobin 11.2-15.7 Normal (applies to non-numeric resul ts) [facility] Hematocrit 34.1-44.9 Normal (applies to non-numeric resul ts) [facility] Mean Corpuscular Volume 81-99 Below low normal [facility] Mean Corpuscular Hemoglobin 27.0-33.0 Normal (appli es to non-numeric results) [facility] Mean Corpuscular HGB Conc 32.0-36.0 Normal (applies to no n-numeric results) [facility] Red Cell Distribution Width 11.5-14.5 Above high normal [facility] Platelet Count 355 X10 3/uL 130-450 Normal (applies to non-numeric results) [facility] Mean Platelet Volume 9.5-12.7 Normal (applies to non-num brii results) [facility] Imm Grans% (AUTO) 0 % 0-2 Normal (applies to non-numeri c results) [facility] Neutrophils % (AUTO) 56 % 40-75 Normal (applies to non-num brii results) [facility] Lymphocytes % (AUTO) 34 % 21-46 Normal (applies to non-num brii results) [facility] Monocytes % (AUTO) 7 % 5-12 Normal (applies to non-numer ic results) [facility] Eosinophils % (AUTO) 2 % 1-5 Normal (applies to non-num brii results) [facility] Basophils % (AUTO) 1 % 0-1 Normal (applies to non-numer ic results) [facility] Imm Grans# (AUTO) 0.0-0.5 Normal (applies to non-numeri c results) [facility] Neutrophils # (AUTO) 1.5-8.1 Normal (applies to non-num brii results) [facility] Lymphocytes # (AUTO) 1.0-3.1 Normal (applies to non-num brii results) [facility] Monocytes # (AUTO) 0.2-1.3 Normal (applies to non-numer ic results) [facility] Eosinophils# (AUTO) 0.0-0.5 Normal (applies to non-nume meghana results) [facility] Basophils # (AUTO) 0.0-0.1 Normal (applies to non-numer ic results) [facility] ID Date Data Source [id number] 03/16/2021 10:50:00 AM EDT [facility] Name Value Range Interpretation Code Description Data Berta rce(s) Supporting Document(s) SARS-CoV-2 RNA Resp Ql GOOD+probe NEGATIVE [facility] This lab was ordered by Marielena Hurley [facility] and reported by [facility]. ID Date Data Source [id number] 03/14/2021 08:01:00 AM EDT [facility] Hospital Name Value Range Interpretation Code Description Data Berta rce(s) Supporting Document(s) Urine Culture [facility] ID Date Data Source [id number] 03/14/2021 08:01:00 AM EDT [facility] Name Value Range Interpretation Code Description Data Berta rce(s) Supporting Document(s) Ampicillin Susceptible. Indicates for microbiol ogy susceptibilities only. [facility] Vancomycin 2 Susceptible. Indicates for m icrobiology susceptibilities only. [facility] Gentamicin 500 Susceptible. Ind icates for microbiology susceptibilities only. [facility] Daptomycin 4 Susceptible. Indicates for m icrobiology susceptibilities only. [facility] Linezolid 2 Susceptible. Indicates for microbiol ogy susceptibilities only. [facility] Nitrofurantoin Susceptible. Ind icates for microbiology susceptibilities only. [facility] ID Date Data Source [id number] 01/31/2021 10:04:00 AM EDT [facility] Hospital Name: JEANNETTE VIGIL Med Rec #: [id number] 4 : 1985 Age/Sex: 35F Date of Service: 01/31/21 DISPOSITION SUMMARY Discharge Summary [facility] Emergency Department Age:35 yrs Sex:Female :1985 Arrival:01/31/2021 10:04 Departure Date01/31/2021 Departure Time11:05 Private MD:Rosi Rogers MD Outcome: Discharge Location: Home/Self Care Condition: Good Chief Complaint: - Requesting Nice Placed. Diagnosis: Lower abdominal pain, unspecified Prescriptions: oxycodone 5 mg Oral Tablet - take 1 tablet by ORAL route every 6 hours; 8 tablet Custom Notes: Attending Physician: Leo Ingram DO Private MD: Rosi Rogers MD Mid Level Provider: Vipul Johnson PA Orders: Nice Catheter, Bladder Scan Discharge Instruction: Discharge Summary Sheet, Medication Reconciliation, Fax Visit Summary for Rosi Rogers MD Name Value Range Interpretation Code Description Data Berta rce(s) Supporting Document(s) ID Date Data Source [id number] 01/31/2021 10:04:00 AM EDT [facility] Name: JEANNETTE VIGIL Med Rec #: [id number] 4 : 1985 Age/Sex: 35F Date of Service: 01/31/21 PHYSICIAN CHART Physician Documentation [facility] Name: Jeannette Vigil Age: 35 yrs Sex: Female : 1985 Arrival Date: 01/31/2021 Time: 10:04 Bed FT1 Private MD: Rosi Rogers ED Physician Leo Ingram Disposition: 01/31 20:49 Attestation: Patient was seen by the [facility] rc3 Provider. I was personally available in the department for consultation but did not see or discuss the patient with them. HPI: 10:35 This 35 yrs old Female presents to ER via Walk-In tcm with complaints of Requesting Nice Placed.. 10:35 Patient presented to ER complaining of suprapubic pressure, tcm requesting Nice catheter placed. Patient had a hysterectomy performed in [place] approximately 1 month ago during which her kidney and ureter were injured requiring a stent placement, patient then had been unable to void her bladder so she has been requiring Nice catheter. Patient had catheter placed at her primary care office and then last evening sat on the toilet as she was having some leaking from the catheter and noted the catheter fell out although the balloon was still inflated. She denies any current fever, chills, nausea, vomiting, chest pain, shortness of breath, numbness or tingling in lower extremities, weakness in lower extremities, saddle paresthesia.. PASTRY DECORATOR: 10:17 LMP N/A - Hysterectomy mp3 Historical: - Allergies: Bees; PENICILLINS; - Home Meds: 1. Estraderm 0.1 mg/24 hr TD ptsw 1 patch Once a week 2. omeprazole 40 mg Oral cpDR 1 cap once daily 3. bupropion HCl 300 mg Oral Tb24 1 tab once daily - PMHx: compartment syndrome - leg; GERD; - PSHx: leg surgery vein; polyps removed; Hysterectomy; R-kidney stent; - Med Reconciliation:: Green Alert: The patient's med list is complete to the best of the nurse's/provider's knowledge. Medications reviewed, completed by nurse using patient's med list. - Immunization history,: All immunizations are up to date. - Advance directive: There is no existing advanced directive. Information offered. - Family History:: mother has a history of cancer. - Social History: Smoking status (Tobacco): Patient states is a heavy tobacco smoker (>10 cigarettes a day). Preferred Language: Vincentian No barriers to communication noted, The patient speaks fluent Vincentian, Speaks appropriately for age. ROS: 10:37 Abdomen/GI: Positive for abdominal pain. Positive for tcm difficulty urinating. All other systems are negative. Exam: 10:38 Head/Face: Normocephalic, atraumatic. Cardiovascular: tcm Regular rate and rhythm with a normal S1 and S2. No pulse deficits. Respiratory: Lungs have equal breath sounds bilaterally, clear to auscultation. No rales, rhonchi or wheezes noted. No increased work of breathing, no retractions or nasal flaring. 10:38 Skin: Warm, dry with normal turgor. Normal color with no rashes, no lesions, and no evidence of cellulitis. 10:38 Constitutional: The patient appears to have no acute distress, appears alert, appears anxious, appears to be awake, is obviously uncomfortable. 10:38 Abdomen/GI: Inspection: abdomen appears normal, Bowel sounds: normal, active, Palpation: mild abdominal tenderness, in the suprapubic area. 10:38 : Bladder: distension, that is moderate, tenderness, that is mild. 10:38 Neuro: Orientation: is normal, to person, place, time & situation. Mentation: is normal, responsive to voice lucid, able to follow commands, Memory: is normal, immediate memory is intact, recent memory is intact, remote memory is intact. Vital Signs: 10:17 BP 153 / 110; Pulse 98; Resp 18; Temp 96.9(TE); Pulse Ox mp3 96% on R/A; Weight 51.71 kg; Height 5 ft. 5 in. (165.10 cm); Pain 9/10; 10:17 Body Mass Index 18.97 (51.71 kg, 165.10 cm) mp3 MDM: 10:31 Patient medically screened. tcm 11:06 Data reviewed: vital signs, nurses notes. ED course: tcm Patient presented to ER complaining of suprapubic pain after Nice fell out last evening. Patient reports that her significant pain started after the Nice became displaced last evening while the balloon was inflated, I suspect that a large component of her pain is due to this, Nice catheter today drained approximately 20 mL, bladder scan was performed which showed only approximately 15 mL residual, I suspect that she was leaking urine since last evening. New Nice has been placed slightly overinflated balloon to ensure adequate hold and strict return precautions were discussed with patient for any changes in her condition, she has been taking large amounts of Tylenol and ibuprofen at home for pain control and I have sent a few tablets of pain medication that she can take for breakthrough pain. She will contact her surgeon's office on Tuesday to discuss the complication she has been experiencing and will likely have earlier recheck with their office then in the schedule II weeks. Vitals have been normal along the department today and she is agreeable to plan for discharge, return precautions were discussed which she understood and agreed with them patient's been comfortable cooperative with exam interview.. 01/31 10:34 Order name: Nice Catheter; Complete Time: 10:56 tcm 01/31 10:51 Order name: Bladder Scan; Complete Time: 10:56 tcm Dispensed Medications: No medications were administered Disposition Summary: 01/31/21 10:59 Discharge Ordered Location: Home/Self Care tcm Condition: Good tcm Diagnosis - Lower abdominal pain, unspecified tcm Followup: tcm - With: Private Physician - When: 1 - 2 days - Reason: Further diagnostic work-up, Recheck today's complaints, Continuance of care, If symptoms persist Discharge Instructions: - Discharge Summary Sheet tcm Forms: - Medication Reconciliation tcm Prescriptions: - oxycodone 5 mg Oral Tablet - take 1 tablet by ORAL route every 6 hours; 8 tcm tablet; Refills: 0, Product Selection Permitted Signatures: Leo Ingram DO DO rc3 Britni Welch RN RN mp3 Vipul Johnson PA PA tcm Corrections: (The following items were deleted from the chart) 10:20 10:18 Home Meds: Ambien 10 mg Oral tab 1 tab as needed; mp3 mp3 10:20 10:18 Home Meds: naproxen 500 mg Oral tab 1 tab every 12 mp3 hours; as needed; mp3 Name Value Range Interpretation Code Description Data Berta rce(s) Supporting Document(s) ID Date Data Source [id number] 01/31/2021 10:04:00 AM EDT [facility] Name: JEANNETTE VIGIL Med Rec #: [id number] : 1985 Age/Sex: 35F Date of Service: 01/31/21 NURSE CHART Nurse's Notes [facility] Name: Jeannette Vigil Age: 35 yrs Sex: Female : 1985 Arrival Date: 01/31/2021 Time: 10:04 Bed FT1 Private MD: Rosi Rogers Diagnosis: Lower abdominal pain, unspecified Presentation: 01/31 10:15 Transition of care: pat ient was not received from another 3 setting of care. Presenting complaint: Patient states - I need another nice placed because I had one yesterday in my OB office but it fell out in the night 10 pm joaquin & I haven't been able to fully pee since. Have you travelled in the last 30 days? No. Have you had contact with an individual with a confirmed diagnosis of Ebola or COVID-19? No. 10:15 Acuity: Semi-Urgent - 4 mp3 10:15 Method Of Arrival: Walk-In mp3 Triage Assessment: 10:17 SEPSIS SCREEN: A Confirmed or Suspected Infection is mp3 Unknown, their temperature is not <96.8 or >100.9, their heart rate is >90, their RR is not >20, it is unknown if their WBC is <4 or >12, the patient does not have new or unexplained altered mental status. SIRS or Sepsis criteria is not present. Suicide Screening: Have you had thoughts of harming yourself or others? No. The patient appears to have some mild discomfort, The patient is anxious, behaving appropriately according to age. Patient states the pain is currently a 9 / 10 The patient complains of pain in suprapubic area. PASTRY DECORATOR: 10:17 LMP N/A - Hysterectomy mp3 Historical: - Allergies: Bees; PENICILLINS; - Home Meds: 1. Estraderm 0.1 mg/24 hr TD ptsw 1 patch Once a week 2. omeprazole 40 mg Oral cpDR 1 cap once daily 3. bupropion HCl 300 mg Oral Tb24 1 tab once daily - PMHx: compartment syndrome - leg; GERD; - PSHx: leg surgery vein; polyps removed; Hysterectomy; R-kidney stent; - Med Reconciliation:: Green Alert: The patient's med list is complete to the best of the nurse's/provider's knowledge. Medications reviewed, completed by nurse using patient's med list. - Immunization history,: All immunizations are up to date. - Advance directive: There is no existing advanced directive. Information offered. - Family History:: mother has a history of cancer. - Social History: Smoking status (Tobacco): Patient states is a heavy tobacco smoker (>10 cigarettes a day). Preferred Language: Vincentian No barriers to communication noted, The patient speaks fluent Vincentian, Speaks appropriately for age. Screenin:22 AUDIT 1. How often do you have a drink containing alcohol? alc Never (0 points). Drug Abuse Screening Test: 1. Have you used drugs other than those required for medical reasons? No (0 points), screen is complete, no risk. Abuse screen: Denies threats or abuse. Denies injuries from another. Nutritional screening: No deficits noted. The patient tries to walk without assistance despite being advised to ask for help or use an assistive device to ambulate (30 points). The patient is at HIGH RISK for falls (Lindsay Scale = >45 pts). Fall prevention measures have been instituted. Patient and Family have been educated on fall prevention program and strategies. Assessment: 10:34 The patient appears to be uncomfortable, The patient is alc behaving appropriately according to age, cooperative, pleasant. Respiratory: No deficits noted. GI: Abdomen is dis tended. : Patient reports inability to void. Vital Signs: 10:17 BP 153 / 110; Pulse 98; Resp 18; Temp 96.9(TE); Pulse Ox mp3 96% on R/A; Weight 51.71 kg; Height 5 ft. 5 in. (165.10 cm); Pain 9/10; 10:17 Body Mass Index 18.97 (51.71 kg, 165.10 cm) mp3 ED Course: 10:05 Patient arrived in ED. lmm 10:14 Rosi Rogers MD is Private Physician. mp3 10:17 Triage completed. mp3 10:17 Arm band placed on right wrist. mp3 10:21 Radha Kaiser RN is Primary Nurse. alc 10:22 Patient has correct armband on for positive identification. alc Placed in gown. Bed in low position. Call light in reach. 10:24 Vipul Johnson PA is PHCP. tcm 10:24 Leo Ingram DO is Attending Physician. tcm 10:56 No procedures ordered. Bladder Scan Residual Amount 15ml. alc Catheter placed because of urinary retention. Nice catheter inserted. 14 Fr. The balloon size is 15. Balloon inflated to appropriate size. To gravity drainage. Tamper seal around tubing inspected and found to be intact. Tube-securing device is applied and securely intact. Leg-bag is secured on patient's leg. returned 10mls of clear yellow urine returned. Patient tolerated well. 11:05 Radiology: None performed. alc Administered Medications: No medications were administered Outcome: 10:59 Discharge [facility] by [facility]. [facility] 11:05 Patient verbalized understanding of disposition alc instructions. Patient has no functional deficits. 11:05 Patient discharged to home ambulatory. 11:05 Condition: stable Condition: improved 11:05 Discharge instructions given to patient, Patient was instructed on discharge instructions, follow up and referral plans, medication usage, no drinking with medication, no driving heavy equipment, safety practices, receiving sedating medications, The patient demonstrated understanding of instructions, medications, Prescriptions given X 1. 11:05 Vitals are Complete in accordance with Emergency Department Policy. 11:05 Patient left the ED. alc Signatures: Britni Welch RN RN mp3 Radha Kaiser RN RN alc Vipul Johnson PA PA tcm [place], Dennis Reg lmm Corrections: (The following items were deleted from the chart) 10:20 10:18 Home Meds: Ambien 10 mg Oral tab 1 tab as needed; mp3 mp3 10:20 10:18 Home Meds: naproxen 500 mg Oral tab 1 tab every 12 mp3 hours; as needed; mp3 Name Value Range Interpretation Code Description Data Berta rce(s) Supporting Document(s) ID Date Data Source [id number] 01/12/2021 04:47:00 PM EDT [facility] Name Value Range Interpretation Code Description Data Berta rce(s) Supporting Document(s) FLU A AND B, RSV AND COVID RNA PANEL NEGATIVE FOR SARS -COV-2 VIRUS RNA BY REAL TIME PCR [facility] This lab was ordered by [facility] and reported by [facility]. ID Date Data Source [id number] 12/28/2020 08:45:00 AM EDT [facility] Name Value Range Interpretation Code Description Data Berta rce(s) Supporting Document(s) Respiratory specimen severe acute respir atory syndrome coronavirus 2 (SARS-CoV-2) RNA Negative (qualifier value) [facility] This lab was ordered by [facility] rosa and reported by [facility]. ID Date Data Source [id number] 12/28/2020 02:36:00 PM EDT [facility] COVID-19 Specimen Source NASOPHARYNGEAL Testing was performed using the [employer] SARS-CoV-2 Assay (Immunologix System) Methodology: Nucleic Acid Amplification Neck Band Setter RT-PCR Mediated Amplification (TMA) and Dual Kinetic Assay (DKA) Negative results do not preclude SARS-CoV-2 infection and should not be used as the sole basis for patient management decisions. Negative results must be combined with clinical observations, patient history, and epidemiological information. This test has been authorized by FDA under an (Emergency Use Authorization) EUA for use by authorized laboratories for individuals who are suspected of COVID-19 by their healthcare provider. This test is only authorized for the duration of the declaration that circumstances exist justifying the authorization of emergency use of in vitro diagnostic tests for detection and/or diagnosis of SARS-CoV-2. Fact sheets for this EUA assay can be found at the following links EUA Fact Sheet for Providers: https://www.fda.gov/media/009014/download EUA Fact Sheet for Patients: https://www.fda.gov/media/703948/download THIS IS A STATE REPORTABLE COMMUNICABLE DISEASE. Test Performed By: [facility] [address] [place] [address] Director: Nora Walker MD Name Value Range Interpretation Code Description Data Berta rce(s) Supporting Document(s) ID Date Data Source [id number] 08/13/2020 08:30:00 AM EST [facility] Name Value Range Interpretation Code Description Data Berta rce(s) Supporting Document(s) SARS coronavirus 2 RNA [facility] This lab was ordered by [facility] rosa and reported by [employer]. ID Date Data Source [id number] 08/26/2020 05:56:00 AM EST [facility] Name Value Range Interpretation Code Description Data Berta rce(s) Supporting Document(s) SARS-CoV-2 GOOD result Not Detected Normal (applies to non- numeric results) [facility] This nucleic acid amplification test was developed and its performance characteristics determined by [employer]. Nucleic acid amplification tests include PCR and TMA. This test has not been FDA cleared or approved. This test has been authorized by FDA under an Emergency Use Authorization (EUA). This test is only authorized for the duration of time the declaration that circumstances exist justifying the authorization of the emergency use of in vitro diagnostic tests for detection of SARS-CoV-2 virus and/or diagnosis of COVID-19 infection under section 564(b)(1) of the Act, 21 U.S.C. 360bbb-3(b) (1), unless the authorization is terminated or revoked sooner. When diagnostic testing is negative, the possibility of a false negative result should be considered in the context of a patient's recent exposures and the presence of clinical signs and symptoms consistent with COVID-19. An individual without symptoms of COVID-19 and who is not shedding SARS-CoV-2 virus would expect to have a negative (not detected) result in this assay. Performed at: [facility] [address] [place], [place] [id number] [employer] [place] Supervisor: Annabella Ang PhD, Phone: [phone] Testing was performed using the [employer] SARS-CoV-2 assay. This nucleic acid amplification test was developed and its performance characteristics determined by [employer] [facility]. Nucleic acid amplification tests include PCR and TMA. This test has not been FDA cleared or approved. This test has been authorized by FDA under an Emergency Use Authorization (EUA). This test is only authorized for the duration of time the declaration that circumstances exist justifying the authorization of the emergency use of in vitro diagnostic tests for detection of SARS-CoV-2 virus and/or diagnosis of COVID-19 infection under section 564(b)(1) of the Act, 21 U.S.C. 360bbb-3(b) (1), unless the authorization is terminated or revoked sooner. When diagnostic testing is negative, the possibil ity of a false negative result should be considered in the context of a patient's recent exposures and the presence of clinical signs and symptoms consistent with COVID-19. An individual without symptoms of COVID-19 and who is not shedding SARS-CoV-2 virus would expect to have a negative (not detected) result in this assay. Performed at: RN - [facility] [address] [id number] [employer] [place] Supervisor: Joann Norwood MD, Phone: [phone] ID Date Data Source [id number] 08/26/2020 05:08:00 AM EST [facility] Name Value Range Interpretation Code Description Data Berta rce(s) Supporting Document(s) White Blood Count 4.8-10.8 Normal (applies to non-numeri c results) [facility] Red Blood Count 3.68-5.22 Normal (applies to non-numeric results) [facility] Hemoglobin 11.2-15.7 Normal (applies to non-numeric resul ts) [facility] Hematocrit 34.1-44.9 Normal (applies to non-numeric resul ts) [facility] Mean Corpuscular Volume 81-99 Normal (applies to non- numeric results) [facility] Mean Corpuscular Hemoglobin 27.0-33.0 Normal (appli es to non-numeric results) [facility] Mean Corpuscular HGB Conc 32.0-36.0 Normal (applies to no n-numeric results) [facility] Red Cell Distribution Width 11.5-14.5 Above high normal [facility] Platelet Count 374 X10 3/uL 130-450 Normal (applies to non-numeric results) [facility] Mean Platelet Volume 9.5-12.7 Normal (applies to non-num brii results) [facility] Imm Grans% (AUTO) 0 % 0-2 Normal (applies to non-numeri c results) [facility] Neutrophils % (AUTO) 53 % 40-75 Normal (applies to non-num brii results) [facility] Lymphocytes % (AUTO) 39 % 21-46 Normal (applies to non-num brii results) [facility] Monocytes % (AUTO) 8 % 5-12 Normal (applies to non-numer ic results) [facility] Eosinophils % (AUTO) 0 % 1-5 Below low normal [facility] Basophils % (AUTO) 1 % 0-1 Normal (applies to non-numer ic results) [facility] Imm Grans# (AUTO) 0.0-0.5 Normal (applies to non-numeri c results) [facility] Neutrophils # (AUTO) 1.5-8.1 Normal (applies to non-num brii results) [facility] Lymphocytes # (AUTO) 1.0-3.1 Above high normal [facility] Monocytes # (AUTO) 0.2-1.3 Normal (applies to non-numer ic results) [facility] Eosinophils# (AUTO) 0.0-0.5 Normal (applies to non-nume meghana results) [facility] Basophils # (AUTO) 0.0-0.1 Normal (applies to non-numer ic results) [facility] ID Date Data Source [id number] 08/04/2020 11:29:00 AM EST [facility] Name: JEANNETTE VIGIL : 1985 Ag e/Sex: 35F Ordering Provider: Rosi Rogers MD Med Rec #: [id number] Reg Status: REG REF Room #: Date of Service: 08/04/20 Report Number: [id number] cc:Rosi Rogers MD Send Report To: [id number] MRI/MRI Lum Spine No Contrast Reason for exam: LUMBAR RADICULOPATHY FINDINGS: There is normal alignment and position of the bones. There are some prominent Modic type 2 endplate changes identified at the L4-5 level. There is no evidence for any fractures identified. Conus terminates at L2. The L1-2 disk space level is within normal limits. The L2-3 disk space level is within normal limits. The L3-4 disk space level demonstrates some mild disk bulging. At L4-5 there are prominent Modic type 2 endplate changes and moderate disk bulging with some decreased disk space height to 5 mm. No focal herniations seen. The L5-S1 disk space level is within normal limits. IMPRESSION: Some spondylosis most notable at the L4-5 level as described above. No focal herniations seen. Fluoroscopy time in seconds: Number of Exposures: Time Portable Image Performed: Contrast Agent in ml: Method of Administration: REPORT SIGNATURE ON FILE Reported By: Harvey Weber MD <Electronically signed by Mauricio Weber MD> 08/04/20 1344 Dictation Date/Time: 08/04/20 0837 Transcribed Date/Time: 08/04/20 1129 [employer] Over[employer]: [facility] Name Value Range Interpretation Code Description Data Berta rce(s) Supporting Document(s) ID Date Data Source [id number] 07/28/2020 11:23:00 AM EST [facility] Name: JEANNETTE VIGIL : 1985 Ag e/Sex: 35F Ordering Provider: Rosi Rogers MD Med Rec #: [id number] Reg Status: REG REF Room #: Date of Service: 07/28/20 Report Number: [id number] cc:Rosi Rogers MD Send Report To: [id number] XRP/XR L Spine Complete min 4 vws Reason for exam: LOW BACK PAIN Prior examination: None available. FINDINGS: There is no acute fracture. A subtle spondylolisthesis at L4-L5 is suggested. There are moderate to advanced degene rative changes at L4-L5 with interspace narrowing, endplate sclerosis and osteophyte production.There are moderate to advanced degenerative changes at the facet joints especially L5-S1.There is Right-sided sacralization of L5 Impression Degenerative changes without acute fracture Electronically signed on Jul 28, 2020 10:33:52 AM EST by: Antonio Arias Fluoroscopy time in seconds: 0 Number of Exposures: Time Portable Image Performed: Contrast Agent in ml: Method of Administration: REPORT SIGNATURE ON FILE Reported By: Antonio Arias MD 07/28/20 1124 Dictation Date/Time: 07/28/20 1033 Transcribed Date/Time: 07/28/20 112 [employer]: [facility] Name Value Range Interpretation Code Description Data Berta rce(s) Supporting Document(s) ID Date Data Source [id number] 08/25/2020 02:23:00 PM EST [facility] Name Value Range Interpretation Code Description Data Berta rce(s) Supporting Document(s) White Blood Count 4.8-10.8 Normal (applies to non-numeri c results) [facility] Red Blood Count 3.68-5.22 Normal (applies to non-numeric results) [facility] Hemoglobin 11.2-15.7 Normal (applies to non-numeric resul ts) [facility] Hematocrit 34.1-44.9 Normal (applies to non-numeric resul ts) [facility] Mean Corpuscular Volume 81-99 Normal (applies to non- numeric results) [facility] Mean Corpuscular Hemoglobin 27.0-33.0 Normal (appli es to non-numeric results) [facility] Mean Corpuscular HGB Conc 32.0-36.0 Normal (applies to no n-numeric results) [facility] Red Cell Distribution Width 11.5-14.5 Above high normal [facility] Platelet Count 323 X10 3/uL 130-450 Normal (applies to non-numeric results) [facility] Mean Platelet Volume 9.5-12.7 Normal (applies to non-num brii results) [facility] Imm Grans% (AUTO) 0 % 0-2 Normal (applies to non-numeri c results) [facility] Neutrophils % (AUTO) 52 % 40-75 Normal (applies to non-num brii results) [facility] Lymphocytes % (AUTO) 38 % 21-46 Normal (applies to non-num brii results) [facility] Monocytes % (AUTO) 9 % 5-12 Normal (applies to non-numer ic results) [facility] Eosinophils % (AUTO) 1 % 1-5 Normal (applies to non-num brii results) [facility] Basophils % (AUTO) 1 % 0-1 Normal (applies to non-numer ic results) [facility] Imm Grans# (AUTO) 0.0-0.5 Normal (applies to non-numeri c results) [facility] Neutrophils # (AUTO) 1.5-8.1 Normal (applies to non-num brii results) [facility] Lymphocytes # (AUTO) 1.0-3.1 Normal (applies to non-num brii results) [facility] Monocytes # (AUTO) 0.2-1.3 Normal (applies to non-numer ic results) [facility] Eosinophils# (AUTO) 0.0-0.5 Normal (applies to non-nume meghana results) [facility] Basophils # (AUTO) 0.0-0.1 Normal (applies to non-numer ic results) [facility] ID Date Data Source [id number] 08/25/2020 02:23:00 PM EST [facility] Name Value Range Interpretation Code Description Data Berta rce(s) Supporting Document(s) Erythrocyte Sedimentation ESR 5 mm/hr 0-20 No rmal (applies to non-numeric results) [facility] ID Date Data Source [id number] 08/25/2020 02:23:00 PM EST [facility] Name Value Range Interpretation Code Description Data Berta rce(s) Supporting Document(s) Iron FE Level 51 ug/dL 37-170 Normal (applies to non-numeric re sults) [facility] Total Iron Binding Capacity 406 ug/dL 265-497 Norm al (applies to non-numeric results) [facility] %Iron Saturation 12.0-55.0 Normal (applies to non-numeric results) [facility] ID Date Data Source [id number] 08/25/2020 02:23:00 PM EST [facility] Name Value Range Interpretation Code Description Data Berta rce(s) Supporting Document(s) C-Reactive Protein,Wide Range <3.00 Normal (applies t o non-numeric results) [facility] Procedure Social History Code Duration Value Status Description Data Source(s ) Smoking 07/12/2021 12:00:00 AM EDT Current Smoker completed Curre nt Smoker eCW1 ([facility]) Smoking 07/12/2021 12:00:00 AM EDT Current Smoker completed Curre nt Smoker eCW1 ([facility]) Vital Signs ID Date Data Source UNK Name Value Range Interpretation Code Description Data Source(s) Body weight 115.0 [lb_av] 115.0 [lb_av] eCW1 ([facility]) Body weight 52.16 kg 52.16 kg eCW1 ([facility]) Body height 56 [in_i] 56 [in_i] eCW1 ([facility]) Body mass index (BMI) [Ratio] 25.78 kg/m2 25.78 kg/m2 [facility] ([facility]) Heart rate 71 /min 71 /min eCW1 ([facility]) Respiratory rate 17 /min 17 /min eCW1 ([facility]) Body temperature 97.5 [degF] 97.5 [degF] eCW1 ( [facility]) Systolic blood pressure 138 mm[Hg] 138 mm[Hg] e CW1 ([facility]) Diastolic blood pressure 80 mm[Hg] 80 mm[Hg] eCW1 ([facility]) ID Date Data Source [id number] 07/25/2021 01:30:00 PM EST [facility] Name Value Range Interpretation Code Description Data Source(s) Weight (Calculated Kilograms) 54.52 54.52 [facility] Height (Calculated Centimeters) 165.1 165. 1 [facility] Body Mass Index (BMI) 20.0 20.0 [facility] ID Date Data Source [id number] 07/18/2021 10:47:00 AM EDT [facility] Name Value Range Interpretation Code Description Data Source(s) Weight (Calculated Kilograms) 54.52 54.52 [facility] Height (Calculated Centimeters) 165.1 165. 1 [facility] Body Mass Index (BMI) 20.0 20.0 [facility] Hospital ID Date Data Source [id number] 06/04/2021 02:59:00 PM EDT [facility] Hospital Name Value Range Interpretation Code Description Data Source(s) Weight Measurement Method 1 1 [facility] Weight (Calculated Kilograms) 54.52 54.52 [facility] Weight 1923.2 1923.2 [facility] Temperature Source 7 7 [facility] Temperature 98.1 98.1 [facility] Respiratory Effort 1 1 [facility] Respiratory Rate 18 18 [facility] Pulse Assessment Method 4 4 [facility] Pulse Rate 80 80 [facility] Height (Calculated Centimeters) 165.1 165. 1 [facility] Height 65 65 [facility] Blood Pressure 136/82 136/82 [facility] Body Mass Index (BMI) 20.0 20.0 [facility] Weight Measurement Method 1 1 [facility] Weight (Calculated Kilograms) 54.52 54.52 [facility] Weight 1923.2 1923.2 [facility] Temperature Source 7 7 [facility] Temperature 98.1 98.1 [facility] Respiratory Effort 1 1 [facility] Respiratory Rate 18 18 [facility] Pulse Assessment Method 4 4 [facility] Pulse Rate 80 80 [facility] Height (Calculated Centimeters) 165.1 165. 1 [facility] Height 65 65 [facility] Blood Pressure 136/82 136/82 [facility] Body Mass Index (BMI) 20.0 20.0 [facility] Temperature 97.7 97.7 [facility] Respiratory Effort 1 1 [facility] Respiratory Rate 12 12 [facility] Pulse Assessment Method 1 1 [facility] Pulse Rate 58 58 [facility] Blood Pressure 136/88 136/88 [facility] ID Date Data Source [id number] 09/22/2020 11:39:00 AM EST [facility] Hospital Name Value Range Interpretation Code Description Data Source(s) Weight 1888 1888 [facility] Height 65 65 [facility] Weight Measurement Method 1 1 [facility] Weight 1888 1888 [facility] Temperature 97.7 97.7 [facility] Respiratory Effort 1 1 [facility] Respiratory Rate 15 15 [facility] Pulse Rate 58 58 [facility] Height 65 65 [facility] Blood Pressure 103/65 103/65 [facility] Weight Measurement Method 1 1 [facility] Weight 1888 1888 [facility] Temperature 97.7 97.7 [facility] Respiratory Effort 1 1 [facility] Respiratory Rate 15 15 [facility] Pulse Rate 58 58 [facility] Height 65 65 [facility] Blood Pressure 103/65 103/65 [facility] Weight 1888 1888 [facility] Height 65 65 [facility] ID Date Data Source [id number] 06/05/2020 11:42:00 AM EDT [facility] Hospital Name Value Range Interpretation Code Description Data Source(s) Weight 2031 2031 [facility] Respiratory Rate 16 16 [facility] Pulse Assessment Method 4 4 [facility] Pulse Rate 62 62 [facility] Height 65 65 [facility] Blood Pressure 131/89 131/89 [facility] Weight 2031 2031 [facility] Respiratory Rate 16 16 [facility] Pulse Assessment Method 4 4 [facility] Pulse Rate 62 62 [facility] Height 65 65 [facility] Blood Pressure 131/89 131/89 [facility] Patient Treatment Plan of Care Planned Activity Planned Date Details Description Data Source (s) 24 HR Oxybutynin chloride 15 MG Extended Release Oral Tablet 07/01/2021 12:00:00 AM EDT eCW1 ([facility]) Phenazopyridine hydrochloride 100 MG Oral Tablet [Pyri dium] 07/01/2021 12:00:00 AM EDT eCW1 ([facility]) 24 HR Oxybutynin chloride 15 MG Extended Release Oral Tablet 07/01/2021 12:00:00 AM EDT eCW1 ([facility]) Phenazopyridine hydrochloride 100 MG Oral Tablet [Pyri dium] 07/01/2021 12:00:00 AM EDT eCW1 ([facility])
[2021-07-27] MEDS ORDERED: LIDOCAINE 2% 100MG/5ML SDV (FOR ANES.) As Ordered ONE (09:57)
[2021-07-27] MEDS ORDERED: fentaNYL 100 MCG/2 ML INJECTION (J3010) As Ordered ONE (09:57)
[2021-07-27] MEDS ORDERED: ONDANSETRON 4MG/2ML VIAL As Ordered ONE (09:57)
[2021-07-27] MEDS ORDERED: METOCLOPRAMIDE INJ 10MG/2ML VIAL (J2765 PER 1) As Ordered ONE (09:57)
[2021-07-27] MEDS ORDERED: MIDAZOLAM INJ 2MG/2ML VIAL (J2250 PER 1MG) As Ordered ONE (09:57)
[2021-07-27] MEDS ORDERED: propofoL 200 MG/20 ML VIAL As Ordered ONE (09:57)
[2021-07-27] MEDS ORDERED: CONRAY-60 60% 50ML VIAL (Q9961) As Ordered ONE (10:19)
[2021-07-27] MEDS ORDERED: MACR100C43 PO (11:24)
--- NOTE | 2021-07-27 11:28 | REP ---
INDICATION: RIGHT STENT PLACEMENT. COMPARISON: None. TECHNIQUE: Intraoperative fluoroscopic imaging. FINDINGS: Findings demonstrate hydronephrosis and hydroureter. Possible stricture through the proximal ureter is suggested. Final given image demonstrates a ureteral stent extending to the level of the mid ureter. Total fluoroscopic time 1 minutes 4 seconds. IMPRESSION: Hydroureteronephrosis with possible ureteral stricture. <Electronically signed by Servando Hooper > 07/27/21 1129
[2021-07-27] MEDS ORDERED: fentaNYL 100 MCG/2 ML INJECTION (J3010) IV PRN (11:30)
[2021-07-27] MEDS ORDERED: oxyCODONE 5MG TAB PO PRN (11:30)
[2021-07-27] MEDS ORDERED: ONDANSETRON 4MG/2ML VIAL IV PRN (11:30)
[2021-07-27] MEDS ORDERED: LR 1,000 ML IV SCH ×2 (11:30→11:35)
[2021-07-27 12:00] VITALS: BP 116/59
--- NOTE | 2021-07-27 13:55 | ROOPDOC ---
[facility] Report Of Operation Report of Operation DATE OF PROCEDURE: 07/27/21 PREPROCEDURE DIAGNOSES: [Right ureteral injury during hysterectomy in December 2020]. POSTPROCEDURE DIAGNOSES: [Injury appears to have healed]. PROCEDURE PERFORMED: [Cystoscopy, fluoroscopy, right retrograde pyelography, right rigid ureteroscopy, right ureteral stent removal]. SURGEON: [Alec King, WEED SCIENCE RESEARCH TECHNICIAN: [None], MD ANESTHESIA: [MAC followed by general]. ESTIMATED BLOOD LOSS: Approximately [minimal] mL. COMPLICATIONS: [None]. REMARKS: [36-year-old white female. Suffered a right ureteral injury during a hysterectomy in December of this year. Previously seen by another urologist. Referred to [facility]. The last surgery patient underwent was right stent placement. That surgery was in April of this year, if I remember correctly. Today's surgery was arranged to evaluate the right ureter to then decide how best to fix it, if need be. Informed consent obtained. Risks discussed such as infection, bleeding, pain, scarring, injury to the urinary tract, risks of anesthesia and others. No guarantees given.]. FINDINGS: SPECIMENS REMOVED: [None] PROCEDURE NOTE: . DESCRIPTION OF PROCEDURE: [I met with patient in the preop area and again discussed surgery. Patient wished to proceed. Patient brought to operating room. MAC anesthesia was started. Dorsolithotomy position. Well-padded. Prepped and draped in usual sterile fashion. Surgery done under coverage of an IV antibiotic. Timeout performed. Rigid cystoscopy performed. Stent on the right identified. At this point anesthesia was MAC. Because of too much patient movement MAC was converted to general. The right stent was pulled to the external urethral meatus with a rigid grasper after which a wire was passed up the stent to the kidney as seen using fluoroscopy. The stent was removed. A 5 [place] open-ended ureteral catheter was passed over the wire into the ureter after which the wire was removed. Retrograde pyelography was performed. Contrast was injected gently under fluoroscopic guidance. No extravasation was noted. No stricture was noted. The ureteral catheter was converted to a wire. With the wire in place as a safety wire rigid ureteroscopy was performed. There seemed to be slight edema of the mucosa a few centimeters up the ureter. I carefully advanced the ureteroscope through this area and inspected the remaining ureter. No other abnormality was noted. I passed the ureteroscope to the [facility]. With the ureteroscope in the ureter, I injected contrast through it for another retrograde pyelogram. Again no extravasation or stricture. I inspected the ureter again as I withdrew the ureteroscope. Only abnormality as described above. At this point the wire was converted to a ureteral catheter. The tip of the catheter was just inside the UO. Contrast was injected so as to better evaluate the area in question. No extravasation or stricture. This ended surgery. I decided not to replace the ureteral stent. Fluoroscopy was used intermittently. I interpreted the images as I went along. Patient tolerated everything well left the room in satisfactory condition. Home today. Antibiotic called in. Plan is a CT with IV contrast and delayed images in 3 to 4 weeks. I talked with patient and her . DIAZ KING MD Jul 27, 2021 13:55
== END 2021-07-27 12:17 | disposition home or self-care (01) ==
LOC: M SDC 08:45
PROVIDERS: ATTEND Urology
DX: S37.10XA Unspecified injury of ureter, initial encounter (principal); F41.9 Anxiety disorder, unspecified; F32.9 Major depressive disorder, single episode, unspecified; K21.9 Gastro-esophageal reflux disease without esophagitis; F17.218 Nicotine dependence, cigarettes, with other nicotine-induced disorders; Z79.899 Other long term (current) drug therapy; Z12.10 Encounter for screening for malignant neoplasm of intestinal tract, unspecified; Z88.0 Allergy status to penicillin; Z91.030 Bee allergy status
CPT/HCPCS: 52310; 74420; C1769; J0744; J2250; J2405; J2765; J3010; Q9961

== ENCOUNTER 2021-08-31 08:33 | Inpatient (IN) | payer OTHER ==
[~2021-08-31] VITALS: Ht 167.6 cm; Wt 54.8 kg
[~2021-08-31 08:33] MED LIST changes: +AMOX875T2 PO; +MACR100C43 PO; +MACR50CA10 PO; +NORV5TAB PO; -OMEP-221 PO; +OMEP40CA5 PO
[2021-08-31] MEDS ORDERED: LEXA1TAB PO (08:50)
[2021-08-31] MEDS ORDERED: CIPROFLOXACIN 400 MG in IV 1 EA IV ONE (09:10)
[2021-08-31] MEDS ORDERED: HEPARIN SOD (PORCINE) 5000UNITS/ML 1ML VIAL/SYRINGE As Ordered ONE (09:48)
[2021-08-31] MEDS ORDERED: propofoL 200 MG/20 ML VIAL As Ordered ONE (09:52)
[2021-08-31] MEDS ORDERED: LIDOCAINE 2% 100MG/5ML SDV (FOR ANES.) As Ordered ONE (09:52)
[2021-08-31] MEDS ORDERED: ROCURONIUM BROMIDE 50 MG/5 ML VIAL As Ordered ONE ×2 (09:52→11:20)
[2021-08-31] MEDS ORDERED: dexameTHASONE 4 MG/ML 1ML VIAL (J1100 PER 1MG) As Ordered ONE (09:52)
[2021-08-31] MEDS ORDERED: ONDANSETRON 4MG/2ML VIAL As Ordered ONE (09:52)
[2021-08-31] MEDS ORDERED: MIDAZOLAM INJ 2MG/2ML VIAL (J2250 PER 1MG) As Ordered ONE (09:53)
[2021-08-31] MEDS ORDERED: fentaNYL 250 MCG/5 ML INJECTION As Ordered ONE (09:53)
[2021-08-31] MEDS ORDERED: HEPARIN SOD (PORCINE) 5000UNITS/ML 1ML VIAL/SYRINGE SQ ONE (09:55)
[2021-08-31] MEDS ORDERED: HYDROmorphone HCL 2MG/ML 1ML VIAL As Ordered ONE (10:40)
[2021-08-31] MEDS ORDERED: SUGAMMADEX SODIUM 500 MG/5 ML VIAL (BRIDION) As Ordered ONE (10:40)
[2021-08-31] MEDS ORDERED: ACETAMINOPHEN 1000MG 100ML IV BTL (OFIRMEV) (J0131 PER 10MG) As Ordered ONE (10:40)
[2021-08-31] MEDS ORDERED: ePHEDrine SULFATE 25 MG/5 ML(5MG/ML) SYRINGE As Ordered ONE ×2 (10:44→11:45)
[2021-08-31] MEDS ORDERED: PHENYLephrine 500MCG 5ML (100MCG/ML) SYRINGE As Ordered ONE (10:50)
[2021-08-31] MEDS ORDERED: METOCLOPRAMIDE INJ 10MG/2ML VIAL (J2765 PER 1) As Ordered ONE (12:40)
[2021-08-31] MEDS ORDERED: KETOROLAC 60MG 2ML VIAL As Ordered ONE (12:41)
[2021-08-31] MEDS ORDERED: ACETAMINOPHEN TAB 650MG DOSE (2X325MG) PO PRN (13:20)
[2021-08-31] MEDS ORDERED: ONDANSETRON 4MG/2ML VIAL IV PRN ×2 (13:20→13:40)
[2021-08-31] MEDS ORDERED: HYDROMORPHONE HCL 0.5 MG/ 0.5 ML SYRINGE (J1170 PER 1) IV PRN (13:20)
[2021-08-31] MEDS ORDERED: oxyCODONE 5MG TAB PO PRN (13:40)
[2021-08-31] MEDS ORDERED: LR 1,000 ML IV SCH (13:40)
[2021-08-31] MEDS ORDERED: fentaNYL 100 MCG/2 ML INJECTION As Ordered ONE (15:03)
[2021-08-31] MEDS: fentaNYL 100 MCG/2 ML INJECTION IV PRN ×2 (15:05→15:10)
[2021-08-31 16:00] VITALS: BP 119/76; O2SAT 92
[2021-08-31] MEDS: D5W/0.45% SODIUM CHLORIDE 1,000 ML IV SCH ×2 (16:00→21:53)
[2021-08-31] MEDS: ceFAZolin SOD 1 GM in D5W MINI-BAG PLUS 50 ML IV SCH (16:24)
[2021-08-31 16:30] VITALS: BP 118/75
[2021-08-31 17:30] VITALS: BP 119/76
[2021-08-31] MEDS: ANEXSIA, NORCO 7.5MG/325MG TABLET(HYDROCODONE/APAP) PO PRN (18:16)
[2021-08-31 21:06] VITALS: BP 123/76
[2021-08-31] MEDS: HEPARIN SOD (PORCINE) 5000UNITS/ML 1ML VIAL/SYRINGE SQ SCH (21:42)
[2021-08-31] MEDS: oxyBUTYnin 5 MG TAB PO SCH (21:42)
[2021-08-31] MEDS: HYDROmorphone HCL 2MG/ML 1ML VIAL IV PRN (21:47)
[2021-09-01] MEDS: ceFAZolin SOD 1 GM in D5W MINI-BAG PLUS 50 ML IV SCH ×4 (00:18→23:45)
[2021-09-01 01:49] VITALS: BP 122/74
[2021-09-01] MEDS: HYDROmorphone HCL 2MG/ML 1ML VIAL IV PRN ×6 (04:32→20:52)
[2021-09-01] MEDS: D5W/0.45% SODIUM CHLORIDE 1,000 ML IV SCH ×4 (04:41→23:45)
[2021-09-01] MEDS: HEPARIN SOD (PORCINE) 5000UNITS/ML 1ML VIAL/SYRINGE SQ SCH ×3 (05:21→21:28)
[2021-09-01 05:22] VITALS: BP 121/77
[2021-09-01 06:10] LABS: BASO # 0.1 10^3/uL (0.0-0.2); BASO % 0.3 % (0.0-1.0); EOS # 0.1 10^3/uL (0.0-0.5); EOS % 0.4 % (0.0-3.0); HEMATOCRIT 33.8 % (36.0-47.0); HEMOGLOBIN 10.9 g/dl (12.0-15.5); LYMPH # 2.8 10^3/uL (1.5-5.0); MEAN CORPUSCULAR HGB CONC 32.2 g/dl (32.0-36.5); MEAN CORPUSCULAR VOLUME 83.7 fl (80.0-96.0); MONO # 1.5 10^3/uL (0.0-0.8); MONO % 9.3 % (2.0-8.0); NEUTROPHILS # 11.2 10^3/uL (1.5-8.5); NEUTROPHILS % 71.7 % (36.0-66.0); PLATELET COUNT, AUTOMATED 250 10^3/uL (150-450); RED BLOOD COUNT 4.04 10^6/uL (4.00-5.40); WHITE BLOOD COUNT 15.6 10^3/uL (4.0-10.0)
[2021-09-01 06:35] LABS: ALBUMIN 2.6 GM/DL (3.2-5.2); ALT/SGPT 19 U/L (12-78); BILIRUBIN,TOTAL 0.2 MG/DL (0.2-1.0); BLOOD UREA NITROGEN 8 MG/DL (7-18); CALCIUM LEVEL 8.2 MG/DL (8.5-10.1); CARBON DIOXIDE LEVEL 27 MEQ/L (21-32); CHLORIDE LEVEL 109 MEQ/L (98-107); CREATININE FOR GFR 0.67 MG/DL (0.55-1.30); GLOMERULAR FILTRATION RATE > 60.0 (>60); GLUCOSE, FASTING 138 MG/DL (70-100); PHOSPHORUS LEVEL 3.1 MG/DL (2.5-4.9); POTASSIUM SERUM 3.8 MEQ/L (3.5-5.1); SODIUM LEVEL 141 MEQ/L (136-145); TOTAL PROTEIN 5.8 GM/DL (6.4-8.2)
[2021-09-01] MEDS: buPROPion **XL** TABLET 150MG (WELLBUTRIN XL) PO SCH (07:51)
[2021-09-01] MEDS: oxyBUTYnin 5 MG TAB PO SCH ×2 (07:52→21:28)
[2021-09-01] MEDS: estradioL 1 MG TAB PO SCH (07:52)
[2021-09-01] MEDS: OMEPRAZOLE 20MG CAP PO SCH (07:52)
[2021-09-01 10:00] VITALS: BP 147/92
[2021-09-01] MEDS: ANEXSIA, NORCO 7.5MG/325MG TABLET(HYDROCODONE/APAP) PO PRN (13:15)
[2021-09-01 14:00] VITALS: BP 147/91
[2021-09-01 21:59] VITALS: BP 130/85
[2021-09-02] MEDS: HYDROmorphone HCL 2MG/ML 1ML VIAL IV PRN ×3 (00:22→06:42)
[2021-09-02 05:22] VITALS: BP 120/83
[2021-09-02] MEDS: HEPARIN SOD (PORCINE) 5000UNITS/ML 1ML VIAL/SYRINGE SQ SCH ×3 (05:24→21:00)
[2021-09-02] MEDS: D5W/0.45% SODIUM CHLORIDE 1,000 ML IV SCH (06:22)
[2021-09-02] MEDS: ceFAZolin SOD 1 GM in D5W MINI-BAG PLUS 50 ML IV SCH ×2 (08:34→17:05)
[2021-09-02] MEDS: estradioL 1 MG TAB PO SCH (08:34)
[2021-09-02] MEDS: OMEPRAZOLE 20MG CAP PO SCH (08:34)
[2021-09-02] MEDS: oxyBUTYnin 5 MG TAB PO SCH ×2 (08:35→20:49)
[2021-09-02] MEDS: buPROPion **XL** TABLET 150MG (WELLBUTRIN XL) PO SCH (08:35)
[2021-09-02] MEDS: BISACODYL 5 MG TAB PO SCH (08:35)
[2021-09-02] MEDS: HYDROmorphone 4MG TABLET PO PRN ×3 (08:35→20:49)
[2021-09-02] MEDS: ANEXSIA, NORCO 7.5MG/325MG TABLET(HYDROCODONE/APAP) PO PRN ×4 (11:41→21:59)
[2021-09-02 14:00] VITALS: BP 154/93
[2021-09-02 22:00] VITALS: BP 129/76
[2021-09-03] MEDS: ceFAZolin SOD 1 GM in D5W MINI-BAG PLUS 50 ML IV SCH ×2 (00:11→09:04)
[2021-09-03] MEDS: HEPARIN SOD (PORCINE) 5000UNITS/ML 1ML VIAL/SYRINGE SQ SCH (05:30)
[2021-09-03] MEDS: HYDROmorphone 4MG TABLET PO PRN ×2 (05:31→12:32)
[2021-09-03 05:33] LABS: BASO % 0.4 % (0.0-1.0); EOS # 1.5 10^3/uL (0.0-0.5); EOS % 13.4 % (0.0-3.0); HEMATOCRIT 34.6 % (36.0-47.0); HEMOGLOBIN 11.2 g/dl (12.0-15.5); LYMPH # 3.4 10^3/uL (1.5-5.0); LYMPH % 30.9 % (24.0-44.0); MEAN CORPUSCULAR HEMOGLOBIN 26.9 pg (27.0-33.0); MEAN CORPUSCULAR HGB CONC 32.4 g/dl (32.0-36.5); MEAN CORPUSCULAR VOLUME 83.2 fl (80.0-96.0); MONO # 1.1 10^3/uL (0.0-0.8); MONO % 10.1 % (2.0-8.0); PLATELET COUNT, AUTOMATED 261 10^3/uL (150-450); RED BLOOD COUNT 4.16 10^6/uL (4.00-5.40); WHITE BLOOD COUNT 11.1 10^3/uL (4.0-10.0)
[2021-09-03 06:00] VITALS: BP 131/86
[2021-09-03 06:00] LABS: ALBUMIN 2.8 GM/DL (3.2-5.2); ALT/SGPT 15 U/L (12-78); BILIRUBIN,TOTAL 0.3 MG/DL (0.2-1.0); BLOOD UREA NITROGEN 7 MG/DL (7-18); CALCIUM LEVEL 8.7 MG/DL (8.5-10.1); CARBON DIOXIDE LEVEL 28 MEQ/L (21-32); CHLORIDE LEVEL 107 MEQ/L (98-107); CREATININE FOR GFR 0.72 MG/DL (0.55-1.30); GLOMERULAR FILTRATION RATE > 60.0 (>60); GLUCOSE, FASTING 89 MG/DL (70-100); POTASSIUM SERUM 4.1 MEQ/L (3.5-5.1); SODIUM LEVEL 141 MEQ/L (136-145); TOTAL PROTEIN 6.1 GM/DL (6.4-8.2)
[2021-09-03] MEDS: ANEXSIA, NORCO 7.5MG/325MG TABLET(HYDROCODONE/APAP) PO PRN ×3 (06:13→14:53)
[2021-09-03] MEDS: OMEPRAZOLE 20MG CAP PO SCH (09:04)
[2021-09-03] MEDS: buPROPion **XL** TABLET 150MG (WELLBUTRIN XL) PO SCH (09:04)
[2021-09-03] MEDS: BISACODYL 5 MG TAB PO SCH (09:05)
[2021-09-03] MEDS: estradioL 1 MG TAB PO SCH (09:05)
[2021-09-03] MEDS: oxyBUTYnin 5 MG TAB PO SCH (09:05)
[2021-09-03 10:32] VITALS: O2SAT 96
[2021-09-03] MEDS ORDERED: BACT800T5 PO (12:29)
[2021-09-03] MEDS ORDERED: OXYB5TAB10 PO (13:00)
[2021-09-03] MEDS ORDERED: HYDR4TAB PO (13:00)
== END 2021-09-03 14:55 | disposition home or self-care (01) | DRG 518 ==
LOC: M OR 08:33 → M MS5PR 15:50
PROVIDERS: ADMIT Urology; ATTEND Urology
PROC: 0TUD07Z Supplement Urethra with Autologous Tissue Substitute, Open Approach (ICD-10-PCS; 2021-08-31)
PROC: 0UQG0ZZ Repair Vagina, Open Approach (ICD-10-PCS; 2021-08-31)
PROC: 0TB60ZZ Excision of Right Ureter, Open Approach (ICD-10-PCS; 2021-08-31)
PROC: 0T764DZ Dilation of Right Ureter with Intraluminal Device, Percutaneous Endoscopic Approach (ICD-10-PCS; 2021-08-31)
PROC: 0TS60ZZ Reposition Right Ureter, Open Approach (ICD-10-PCS; principal; 2021-08-31 10:00)
DX: N82.1 Other female urinary-genital tract fistulae (principal); F41.9 Anxiety disorder, unspecified; K21.9 Gastro-esophageal reflux disease without esophagitis; M54.16 Radiculopathy, lumbar region; Z90.710 Acquired absence of both cervix and uterus; Z79.899 Other long term (current) drug therapy; Z88.0 Allergy status to penicillin; Z91.030 Bee allergy status

== ENCOUNTER → 2022-05-07 | Outpatient (REF) | payer OTHER ==
[~2022-05-07] MED LIST changes: +BACT800T5 PO; -CIPROFLOXACIN 400 MG in IV 1 EA IV ONE; +LEXA1TAB PO; -LR 1,000 ML IV ONE; +OXYB5TAB10 PO
[2022-05-07 17:38] LABS: APPEARANCE, URINE MANUAL CLEAR (CLEAR); COLOR, URINE MANUAL YELLOW (YELLOW); GLUCOSE, URINE (UA) MANUAL NEGATIVE (NEGATIVE); PROTEIN, URINE MANUAL NEGATIVE (NEGATIVE)
[2022-05-07 17:39] LABS: BILIRUBIN, URINE MANUAL NEGATIVE (NEGATIVE); BLOOD URINE MANUAL NEGATIVE (NEGATIVE); KETONE, URINE MANUAL NEGATIVE (NEGATIVE); LEUKOCYTE ESTERASE, URINE MAN NEGATIVE (NEGATIVE); NITRITE, URINE MANUAL NEGATIVE (NEGATIVE); UROBILINOGEN, URINE MANUAL NORMAL (NORMAL)
== END ==
LOC: M SMT 16:43
PROVIDERS: ATTEND Urology
DX: N82.1 Other female urinary-genital tract fistulae (principal)

== ENCOUNTER → 2025-03-14 | Outpatient (REF) | payer OTHER, BC ==
[~2025-03-14] MED LIST changes: +BUPR-766 PO; -BUPR300T92 PO; -OXYB5TAB10 PO; +OXYB5TAB14 PO
[2025-03-14 13:55] LABS: APPEARANCE, URINE CLEAR (CLEAR); BACTERIA, URINE AUTO NEGATIVE (NEGATIVE); BILIRUBIN, URINE AUTO NEGATIVE (NEGATIVE); BLOOD, URINE BLOOD NEGATIVE (NEGATIVE); GLUCOSE, URINE (UA) AUTO NEGATIVE (NEGATIVE); KETONE, URINE AUTO TRACE mg/dL (NEGATIVE); LEUKOCYTE ESTERASE, URINE AUTO NEGATIVE (NEGATIVE); MUCUS, URINE SMALL (NEGATIVE); NITRITE, URINE AUTO NEGATIVE (NEGATIVE); PROTEIN, URINE AUTO NEGATIVE (NEGATIVE); RBC, URINE AUTO 1 /HPF (0-3); SPECIFIC GRAVITY URINE AUTO 1.016 (1.002-1.035); SQUAMOUS EPITHELIAL CELL UR AU 1 /HPF (0-6); UROBILINOGEN, URINE AUTO 0.2 mg/dL (0.0-2.0); WBC, URINE AUTO 0 /HPF (0-3)
== END ==
LOC: M SMT 12:52
PROVIDERS: ATTEND Urology
DX: R32 Unspecified urinary incontinence (principal)